=== PATIENT | female | born 1945 | race Caucasian/White ===

== ENCOUNTER 2022-03-10 22:23 | Inpatient (IN) | payer MEDICARE, SELFPAY ==
[2022-03-10 22:38] VITALS: BP 156/48; PULSE 79; RESP 18; TEMP 36.2; O2SAT 96; BMI 35.6
[2022-03-10 22:54] VITALS: O2SAT 96
--- NOTE | 2022-03-11 01:25 | NURSING ---
Pt c/o feeling short of breath, RT called for breathing tx. Fan put in room per pt request.
[2022-03-11 01:29] VITALS: PULSE 79; RESP 18; O2SAT 97
[2022-03-11 05:25] LABS: Hematocrit 31.8 % (37-47); Hemoglobin 10.3 g/dL (12.0-15.0); Mean Corp Hgb Conc 32.4 g/dL (32-36); Mean Corpuscular Hgb 29.6 pg (27.0-32.0); Mean Corpuscular Volume 91.4 fL (81-99); Mean Platelet Vol. 10.7 fl (6.2-12.0); Platelet Count 371 K/mm3 (150-450); RBC Distribution Width CV 14.6 % (11.6-14.6); RBC Distribution Width SD 48.7 fl (35.1-43.9); Red Blood Count 3.48 M/mm3 (4.2-5.4); White Blood Count 10.4 K/mm3 (4.4-11.0)
[2022-03-11 05:43] LABS: ALB/GLOB Ratio 0.8 RATIO (0.9-2.4); AST(SGOT) 28 U/L (15-37); Alanine Aminotransfer ALT/SGPT 36 U/L (13-56); Albumin, Serum 2.8 g/dL (3.2-5.0); Alkaline Phosphatase 56 U/L (45-117); Anion Gap 6 (5-15); BUN 18 mg/dL (7-18); BUN/Creat Ratio 18.4 RATIO (10-20); Calcium,Total 8.5 mg/dL (8.5-10.1); Chloride 107 mmol/L (98-107); Creatinine, Serum 0.98 mg/dL (0.55-1.02); EST Glomerular Filtration Rate 59 mL/min (>60); Est Glom Filt Rate - Afr Amer 71 mL/min (>60); Estimated Creatinine Clearance 39.23 ml/min; Globulin 3.4 g/dL (2.2-4.2); Glucose 122 mg/dL (74-106); Magnesium 2.4 mg/dL (1.6-2.6); Phosphorus 3.7 mg/dL (2.5-4.9); Protein, Total 6.2 g/dL (6.4-8.2); Sodium Level 139 mmol/L (136-145)
[2022-03-11 06:51] VITALS: PULSE 72; RESP 18; O2SAT 97
[2022-03-11] MEDS: Ipratropium/Albuterol Sulfate 3 ML AMPUL.NEB INHALATION ×3 (06:51→19:21)
[2022-03-11 08:08] VITALS: BP 149/48; PULSE 70; RESP 16; TEMP 36.2; O2SAT 96
[2022-03-11] MEDS: Senna/Docusate Sodium 1 Tablet PO (08:15)
[2022-03-11] MEDS: Aspirin 81 MG TAB.CHEW PO (08:15)
[2022-03-11] MEDS: APIXABAN 2.5 MG TABLET (WCH) PO ×2 (08:15→20:03)
[2022-03-11] MEDS: Clopidogrel Bisulfate 75 MG Tablet PO (08:15)
[2022-03-11] MEDS: Menthol/Lanolin/Calamine/Znox 113 GM Tube 1 APPLIC TOPICAL (08:15)
--- NOTE | 2022-03-11 11:06 | EX.PCM.HP.RE ---
[facility] Date of Admission: 03/10/22 Date of Service: 03/11/22 Chief Complaint: Debility secondary to LMCA stroke. [facility] Narrative MAIA ARTEAGA, is a 76-year-old F with a past medical history of COPD, heart failure with preserved ejection fraction, heart MM, obesity and tobacco dependence who presented to [facility] emergency department on 03/02/2022 complaining of shortness of breath. She was in new onset atrial fibrillation with acute decompensated congestive heart failure. EKG showed concern for STEMI and the troponin was elevated at 215. The BNP was greater than 10,000. She was started on a heparin drip and diuresed. She was initially started on amiodarone infusion but developed pauses and episodes of tacky bradycardia and this was discontinued. STEMI was ruled out in favor of acute coronary syndrome vs NSTEMI. Transthoracic echocardiogram showed a 45 to 50% ejection fraction with severe aortic stenosis and a severely dilated LA. On 03/03/2022 she underwent a left heart cath and it showed a 95% stenosis of the proximal LAD, and 80% stenosis of the proximal RCA and a 70% stenosis of the mid RCA. A stent was placed to the LAD. When she woke up from the heart cath she had significant right-sided weakness, aphasia and dysarthria. She had an emesis during the cath and was intubated. She was extubated at [facility] on 03/05/22. The heparin drip was stopped. Imaging was not completed until at least 7 hours after the onset of neurologic symptoms. The CT brain showed possible acute infarct in the left frontal parietal region. 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 On 03/04/2022 she was transferred to [facility] for possible intervention. She was outside the window for TNK. She was seen by Dr. Canseco and taken for possible endovascular intervention. Attempted thrombectomy was unsuccessful. Tici 0. She was treated with dual antiplatelet therapy but anticoagulation was held due to the increased risk for hemorrhagic transformation of CVA. She was also given 80 mg of atorvastatin. Repeat MRI at [facility] showed scattered left hemispheric mayers-white/subcortical subcentimeter infarcts and isolated right cerebellar punctate infarct due to thromboemboli. While at [facility] she was seen by PT/OT/ST and acute rehab was recommended at [facility]. She was transferred to [facility] acute rehab unit on 03/10/2022 for 3 hours of therapy daily to restore independence/function at or near her level prior to the stroke. She will follow-up with neurology at [facility] in 4 to 6 weeks and they will be mailing us an event monitor to place on the patient. A repeat echocardiogram at [facility] showed a mildly dilated left ventricle with moderate concentric left ventricular hypertrophy. The left ventricular systolic ejection fraction was estimated at 60+/- 5%. The right ventricle was mildly dilated and right ventricular systolic function was normal. The left atrium was severely dilated. There was severe aortic valve stenosis with an aortic valve area of 0.92. The peak gradient was 114 and the mean gradient was 65. Significant lab at [facility] included a hemoglobin A1c of 6.5 and LDL of 114. HDL was 54. All paperwork sent to us from [facility] was reviewed. Maia was seen by cardiology at [facility] and they recommended aspirin Plavix and atorvastatin with no anticoagulation initially due to increased risk for hemorrhagic transformation due to the size of the CVA. When she is able to start oral anticoagulation she will need to have 4 weeks of anticoagulation and then aspirin could be discontinued with continued Plavix and an oral anticoagulant. At some point will need to resolve the question of whether or not she will require intervention for the stenotic lesions in the RCA. Cardiology also recommended follow-up in valve clinic going forward for consideration for aortic valve replacement. All lab from this AM was personally reviewed. Hemoglobin is low at 10.3 with an MCV of 91.4 and an increased RDW standard deviation of 48.7. Platelets and white blood cell count are within normal limits. Sodium is normal and the potassium is 4.0. The BUN is 18 and the creatinine is 0.98. GFR is 59 which is consistent with stage IIIa chronic renal failure. Fasting glucose was 122 and phosphorus and magnesium are within normal limits. LFTs are normal. Afebrile VSS-systolic blood pressures are elevated at 149 and 156 since admission. Diastolics are within normal limits and there is a wide pulse pressure secondary to aortic stenosis. Maintaining appropriate oxygen saturation on RA Post void residuals have been 67 and 170. Discussed with nursing - no problems that need addressed Medication list reviewed. [facility] Medical History (Updated 03/11/22 @ 17:[address] Isis Lanier DO) Congestive heart failure (CHF) Coronary artery disease GERD (gastroesophageal reflux disease) Hypertension Severe aortic stenosis Sleep apnea Stroke/cerebrovascular accident Tobacco dependence Home Medications apixaban 2.5 mg tablet (Eliquis) 2.5 mg PO BID blood thinner 03/10/22 [History Last Taken Unknown] aspirin 81 mg chewable tablet 81 mg PO DAILY heart 03/10/22 [History Last Taken Unknown] atorvastatin 40 mg tablet (Lipitor) 40 mg PO QHS cholesterol 03/10/22 [History Last Taken Unknown] clopidogrel 75 mg tablet (Plavix) 75 mg PO DAILY blood thinner 03/10/22 [History Last Taken Unknown] ipratropium 0.5 mg-albuterol 3 mg (2.5 mg base)/3 mL nebulization soln 3 ml inhalation 4XD sob or wheezing 03/10/22 [History Last Taken Unknown] sennosides 8.6 mg-docusate sodium 50 mg tablet (Senna with Docusate Sodium) 1 tab-cap PO BID stool softener 03/10/22 [History Last Taken Unknown] amlodipine 5 mg tablet (Norvasc) 5 mg PO DAILY blood pressure 03/11/22 [History Last Taken Unknown] losartan 50 mg tablet 50 mg PO DAILY blood pressure 03/11/22 [History Last Taken Unknown] spironolactone 25 mg tablet (Aldactone) 25 mg PO DAILY blood pressure 03/11/22 [History Last Taken Unknown] Allergy/AdvReac Type Severity Reaction Status Date / Time No Known Allergies Allergy Verified 03/10/22 23:04 Family History (Updated 03/11/22 @ 16:[address] Isis Lanier DO) Father , of an LA CAD (coronary artery disease) Brother , from an LA CAD (coronary artery disease) Diabetes Sister Alcoholism Mother , of old age No problems noted. Surgical History (Updated 03/11/22 @ 16:[address] Isis Lanier DO) History of appendectomy History of cholecystectomy History of total abdominal hysterectomy and bilateral salpingo-oophorectomy Social History (Updated 03/11/22 @ 16:[address] Isis Lanier DO) household members: family and other details: She lives with her son Jermaine and her brother Marbin in [place]. housing: house number of children: 4 current occupational status: retired Smoking Status: Former smoker quit date: 02/24/22 pack-years: 40 Tobacco: How many years used: 40 counseling given: counseling >3 minutes alcohol intake: never substance use type: does not use ROS Constitutional Constitutional: Reports fatigue and weakness Eyes Eyes: Denies blurry vision, change in vision or double vision Cardiovascular Cardiovascular: Reports chest pain, orthopnea and paroxysmal nocturnal dyspnea Respiratory/Chest Respiratory/Chest: Reports cough and shortness of breath with exertion Gastrointestinal Gastrointestinal: Reports dyspepsia, nausea and other Details: c/o constant heartburn and nausea ; Denies abdominal pain, constipation or vomiting Genitourinary Genitourinary: Denies dysuria or urinary incontinence Musculoskeletal Musculoskeletal: Reports muscle weakness and other Details: muscle pain .....primarily in the RUE at this time.....was in both UE's.....may be central neuropathic pain from the stroke Integumentary Integumentary: Reports dry skin and other Details: multiple areas of ecchymosis......was on Heparin prior to the heart cath and stroke. ; Denies jaundice or rash Neurologic Neurologic: Reports abnormal gait, abnormal speech, confusion, focal weakness, lack of coordination and weakness; Denies numbness, seizures or tremor(s) Psychiatric Psychiatric: Denies anxiety, depression, homicidal ideation or suicidal ideation Endocrine Endocrinology: Denies change in body appearance Hematologic/Lymphatic Hematologic/Lymphatic: Reports easy bleeding Vital Signs Vital Signs Vital Signs: 03/10/22 22:38 03/10/22 22:54 03/11/22 01:29 Temperature 97.2 F L Temperature Source Temporal Pulse Rate 79 79 Respiratory Rate 18 18 Respiratory Effort Normal Non-Labored Respiratory Depth Normal Respiratory Pattern Normal Blood Pressure 156/48 H Blood Pressure Mean 84 Blood Pressure Source Monitor Blood Pressure Position Semi-Fowlers Blood Pressure Location Left Arm Pulse Ox 96 96 Oxygen Delivery Method Room Air Room Air 03/11/22 01:29 03/11/22 06:51 03/11/22 06:51 Temperature Temperature Source Pulse Rate 72 Respiratory Rate 18 Respiratory Effort Respiratory Depth Respiratory Pattern Normal Blood Pressure Blood Pressure Mean Blood Pressure Source Blood Pressure Position Blood Pressure Location Pulse Ox 97 97 Oxygen Delivery Method Room Air Room Air 03/11/22 08:08 Temperature 97.2 F L Temperature Source Oral Pulse Rate 70 Respiratory Rate 16 Respiratory Effort Respiratory Depth Respiratory Pattern Blood Pressure 149/48 H Blood Pressure Mean 81 Blood Pressure Source Monitor Blood Pressure Position Semi-Fowlers Blood Pressure Location Left Arm Pulse Ox 96 Oxygen Delivery Method Room Air Weight Weight: 194 lb 14.218 oz Body Mass Index (BMI) 35.6 Indicators for Scoring Admitted with or Primary Diagnosis of CVA/Stroke: Yes Hx of CVA/Stroke: Yes Modified Pitt Score MRS Score at time of Evaluation: 4-Moderate/severe disability NIHSS NIHSS 1a. Level of Consciousness: Alert; keenly responsive 1b. LOC Questions: Answers BOTH questions correctly. 1c. LOC Commands: Performs both tasks correctly. 2. Best Gaze: Normal 3. Visual: No visual loss 4. Facial Palsy: Normal symmetrical movements 5a. Left Arm: No drift; arm holds 90 (or 45) degrees for full 10 seconds 5b. Right Arm: Drift; arm drifts downward but doesn?t hit the bed 6a. Left Leg: No drift; leg holds 30-degree position for full 5 seconds 6b. Right Leg: Drift; leg falls by the end of 5-seconds, but does not hit bed 7. Limb Ataxia: Absent 8. Sensory: Normal; no sensory loss 9. Best Language: [id number]-fnvjwbes aphasia; (Trouble with word finding) 10. Dysarthria: Tirq-ma-mzkrmmuw dysarthria; 11. Extinction and Inattention: No abnormality Total: 4 Stroke Questions Stroke Team Activated: No Physical Exam Const alert, oriented x3 and no apparent distress Constitutional Narrative: sitting in the recliner at the bedside General Appearance: cooperative and well developed HEENT normocephalic Mouth: dry mucous membranes Eyes PERRL and EOMs intact bilaterally Eyes Narrative: No scleral icterus, no conjunctival injection, no purulent discharge, no mattering of the upper or lower eyelids. Neck supple Resp normal respiratory effort and normal air movement Resp Narrative: She has some crackles in the right base but the lungs are otherwise clear to auscultation. She is not tachypneic and has no conversational dyspnea. Cardio regular rate, regular rhythm, no rub and no gallops Cardio Narrative: She has a 3/6 holosystolic murmur at the second right intercostal space with radiation to the left ventricular outflow tract, lower left sternal border, apex. There is a softer systolic murmur in the mitral listening post. There is no ectopy. GI normal to inspection, nondistended, normoactive bowel sounds, soft to palpation and non-tender GI Narrative: No guarding with palpation. Extremity no calf tenderness Extremity Narrative: pedal pulses are not palpable but both feet are warm to touch. General Extremity: Negative for edema Skin Skin Narrative: Many areas of ecchymosis on upper extremities and in both groins General Skin Exam: dry skin Rashes: no rashes Neuro CN's II-XII intact bilaterally and no sensory deficits noted Neuro Narrative: weakness in RUE > RLE. No visual field cuts. Mild dysarthria. Trouble with word finding. Coordination / Balance: aikawb-hm-reuo test normal and dhor-qu-brhe test normal Psych cooperative, affect normal, denies homicidal ideation and denies suicidal ideation; Negative for thought process normal Appearance: appropriate Attitude: No agitated Results Lab / Micro Data Result Diagrams: 03/11/22 04:40 03/11/22 04:40 Labs: Laboratory Results - last 24 hr 03/11/22 04:40: WBC 10.4, RBC 3.48 L, Hgb 10.3 L, Hct 31.8 L, MCV 91.4, MCH 29.6, MCHC 32.4, RDW Std Deviation 48.7 H, RDW Coeff of Xochilt 14.6, Plt Count 371, MPV 10.7 03/11/22 04:40: Sodium 139, Potassium 4.0, Chloride 107, Carbon Dioxide 26.0, Anion Gap 6, BUN 18, Creatinine 0.98, Estim Creat Clear Calc 39.23, Est GFR (MDRD) Af Amer 71, Est GFR (MDRD) Non-Af 59 L, BUN/Creatinine Ratio 18.4, Glucose 122 H, Calcium 8.5, Phosphorus 3.7, Magnesium 2.4, Total Bilirubin 0.50, AST 28, ALT 36, Alkaline Phosphatase 56, Total Protein 6.2 L, Albumin 2.8 L, Globulin 3.4, Albumin/Globulin Ratio 0.8 L Assessment & Plan Assessment/Plan (1) Physical debility: (2) Stroke/cerebrovascular accident: PLAN: Left MCA distribution. Left cerebellar embolic stroke. (3) Dysphagia: (4) Dysarthria: (5) Right hemiparesis: (6) Acute coronary syndrome: (7) Coronary artery disease: (8) Acute on chronic diastolic (congestive) heart failure: (9) History of placement of stent in LAD coronary artery: (10) Severe aortic stenosis: (11) Paroxysmal A-fib: (12) LAE (left atrial enlargement): PLAN: severe (13) Hyperlipidemia: PLAN: LDL was 114 with HDL 54 and normal trig on no meds. Started on Atorvastatin 80 mg (14) Normochromic normocytic anemia: PLAN: This developed while in [facility] and is most likely secondary to acute blood loss (15) Absent pedal pulses: (16) Glucose intolerance (impaired glucose tolerance): (17) Hypertension: (18) Obesity (BMI 35.0-39.9 without comorbidity): (19) Tobacco dependence: (20) GERD (gastroesophageal reflux disease): PLAN: Plan 1. Documentation from [facility] says that she can start oral anticoagulation 5 days after the stroke. The stroke occurred on 12/01/2022 and this is day#7 post stroke. Will repeat a CTB without contrast in the AM and if there is no hemorrhagic transformation will start Eliquis. She will need to continue dual antiplatelet agents because of the recent left anterior distending coronary stent. We will start a PPI for ulcer prophylaxis and to tx GERD. 2. Smoking cessation counselling given .......she had smoked her last cigarette just a few days prior to the ACS and stroke. She denies cravings at this time. 3. Will need to have AV replacement and possibly a stent to the RCA going forward when she is stable from the CVA. Charges/Coding Visit Charges Inpatient E&M: 50577 Init Hosp L3
[2022-03-11 13:16] VITALS: PULSE 75; RESP 18
--- NOTE | 2022-03-11 13:45 | CASEMGMT ---
Social Work requesting palliative referral. Order entered. Referral emailed to [facility]. Karol Encinas MSW [employer]
--- NOTE | 2022-03-11 17:13 | REHABEVAL_ITS ---
Admission Information Primary Diagnosis:: Physical debility due to thromboembolic left MCA stroke with right hemiparesis, dysarthria, dysphagia, cognitive dysfunction and gait instability. Status Changes from Prescreening?: No changes Identified Actual Problem List:: Skin Intergrity, Pain, ALteration in Cmfrt, Cognitve Impr/Memory Loss, Alteration in Sleep (WAKES UP SOB DUE TO SEVERE AORTIC STENOSIS), Mobility Impaired, Know.Dfct/Disease Process, Know.Dfct of Medicaitons, BP, Hypertension and Alteration-Leisure Activ. Potential Problem List:: DVT, Bleeding, Infection, UTI, Aspiration, Falls, Skin Integrity and Depression Risk of Complications DVT: GIO Hose and - (Apixaban 2.5 mg twice daily......no loading doses given due to risk of hemorrhagic transformation of CVA) Bleeding: Monitor Lab Values, Nursing to Teach Precautions for anti-coagulation therapy., Wound, if applicable, to be assessed every shift. and Stroke patients assessed for lethargy or change in status. Infection: Clinical Staff to Monitor for S/S of infection: and S/S of infection include fever, redness, warmth, etc. Urinary Tract Infection: Monitor for frequency, burning, discomfort, or incontinence. and Nursing will obtain urine sample for urinalysis and C&S when ordered. Aspiration: Clinical staff will monitor for coughing, drooling, congestion., Speech will evaluate swallowing and dsyphasia. and Nursing will monitor patient swallowing during meals. Falls: Patient will be evaluated for Fall Precautions and Patient will be placed on Fall Precautions as indicated per protocol. Skin Breakdown: Nursing will assess skin daily using assessment tool. and Nursing will place on Skin Breakdown Precautions as indicated. Pain: Clinical staff will assess patient's pain level per protocol., Medications will be given, if needed, and the pain level reassessed. and Other methods: Massage, distraction, decrease stimulus, etc. used PRN. Plan of Care Patient requires physician specializing in physical medicine and rehab oversight to provide close medical supervision of rehab issues including: Pain Management, Sleep Problems, Bowel and Bladder, Medical and co-morbidity Management, DVT prophylaxis, Rehabilitation Leadership and Coordination of treatment team Patient needs Physical Therapy: For a minimum of 1 hour and At least 5 out of 7 days Patient needs Physical Therapy to improve:: Mobility, Strengthening, Transfers, Stretching, ROM, Endurance, Stairs, Gait and Balance Patient needs Occupational Therapy: For a minimum of 1 hour and At least 5 out of 7 days Patient needs Occupational Therapy to improve ADL's incl.: Eating, Grooming, Bathing, Dressing, Toileting, Toilet transfers, Community Reintegration, Higher functioning activities, Household tasks, Adaptive Equipment, Splinting and Other activities as determined Patient requires speech therapy: For a minimum of 1 hour and At least 5 out of 7 days Patient requires speech therapy for: Swallowing, Cognition, Language Skills and Compensatory Strategies Patient requires 24/ Rehabilitation Nursing for: Pain Issues, Identifying and preventing risk factors, Monitoring and reporting current medical conditions, Assisting with ambulation, transfer, and all ADL's, Teaching patients about disease process and medications, Family teaching, Providing safe environment, Bowel and Bladder Issues, Skin integrity and Medication Management Patient needs Alteration Workroom Supervisor/ Case Management for: Discharge Planning, Arranging Home Equipment or Services and Family Interventions Patient needs Dietary and Nutrition Services for: Adequate Nutrition, Nutritiona l Supplements and Nutritional Education Goals Patient will remain: free from falls and or injury at time of discharge. Patient will perform bed mobility at: MOD I level of assist. Patient will complete transfers from bed to chair at: MOD I level of assist. Patient will ambulate: 100 feet and with LRD Patient will complete upper body dressing at: MOD I level of assist. Patient will complete lower body dressing at: MOD I level of assist. Patient will complete toileting at: MOD I level of assist. Patient will perform bathing at: MOD I level of assist. Patient will complete grooming at: MOD I level of assist. Patient will complete home management skills at: MOD I level of assist. Patient will achieve: - (1 curb step) Patient will have pain level of: of 3 or less Patient's skin will: remain intact Patient will receive: adequate nutrition. Discharge Planning Pt Prognosis for Sig. Practical Improv. w/in Reasonable Time: Good Estimated Length of stay (days): 21 Anticipated D/C Destination: Home
[2022-03-11 19:21] VITALS: PULSE 73; RESP 20
--- NOTE | 2022-03-11 19:59 | NURSING ---
PT WITH INTERMITTENT EPIGASTRIC PAIN, BURNING IN NATURE AND RATES IT #8 ON SCALE. PAIN IS BETTER WHEN NOT MOVING. PT COMPLAINS OF SHORTNESS OF BREATH WHICH SHE STATES IS NORMAL FOR HER.
[2022-03-11] MEDS: Pantoprazole Sodium 40 MG Tablet PO (20:03)
[2022-03-11] MEDS: Atorvastatin Calcium 40 MG Tablet PO (20:03)
[2022-03-11] MEDS: Mag Hydrox/Al Hydrox/Simeth 30 ML UDC PO (20:15)
--- NOTE | 2022-03-11 20:16 | NURSING ---
EPIGASTRIC PAIN CONTINUES TO COME AND GO. PT SITTING IN BED AND TV IS ON.
[2022-03-11 20:48] VITALS: BP 173/51; PULSE 89; RESP 20; TEMP 36.9; O2SAT 99
--- NOTE | 2022-03-11 20:52 | NURSING ---
PT SITTING ON SIDE OF BED. REPORTS EPIGASTRIC PAIN STILL COMES AND GOES AND THAT SHE FEELS WORSE WITH LAYING FLAT. PT STATES NOT MUCH IMPROVEMENT FROM [facility]. LUNG SOUNDS ARE CLEAR AND PT IS ON 2LPM O2 PER N/C.
--- NOTE | 2022-03-11 20:57 | EKG12_ITS ---
Test Reason : CP Blood Pressure : / mmHG Vent. Rate : 068 BPM Atrial Rate : 068 BPM P-R Int : 146 ms QRS Dur : 102 ms QT Int : 422 ms P-R-T Axes : 076 003 193 degrees QTc Int : 448 ms Normal sinus rhythm ST & T wave abnormality, consider inferior ischemia ST & T wave abnormality, consider anterolateral ischemia Abnormal ECG When compared with ECG of 11-MAR-2022 21:07, MANUAL COMPARISON REQUIRED, DATA IS UNCONFIRMED Confirmed by LOURDES OTTO, EMRE ([id number]), general expeditor CELSO PHIPPS ([id number]) on 03/18/2022 8:26:28 AM Referred By: CHRISTIAN Confirmed By:EMRE FREED MD
--- NOTE | 2022-03-11 20:58 | NURSING ---
DR GONZALES INFORMED OF PT'S EPIGASTRIC PAIN THAT CONTINUES AFTER [place]. ORDERS GIVEN.
--- NOTE | 2022-03-11 21:30 | NURSING ---
DR HESS SENT EKG VIA BACKLINE PHONE.
[2022-03-11 22:58] LABS: Troponin-I HS 266 pg/mL (3.0-54.0)
--- NOTE | 2022-03-11 23:06 | NURSING ---
lab states troponin is 266. call placed to hospitalist via [facility] dredge pump operator. pt is currently resting with eyes closed.
--- NOTE | 2022-03-11 23:17 | NURSING ---
pt to be discharged from rehab unit and admitted to PCU. dr belle to see pt here. pt informed that she is going to be transferred.
--- NOTE | 2022-03-11 23:35 | NURSING ---
report called to Lizzeth in PCU. waiting for dr belle to see pt.
--- NOTE | 2022-03-11 23:43 | NURSING ---
DR HESS IN TO SEE AND TALK TO PT.
[2022-03-12 00:44] LABS: Troponin-I HS 276 pg/mL (3.0-54.0)
--- NOTE | 2022-03-12 04:38 | NURSING ---
PT'S SKILLS AUDITOR, YAQUELIN ARTEAGA (SON) WAS CONTACTED AT [phone] AND INFORMED THAT PT WAS TRANSFERRED TO ROOM 106 IN THE PCU IN [facility] DURING THE NIGHT SHE WAS HAVING SOME CHEST PAIN AND ELEVATED LAB LEVELS AND SO SHE COULD BE MONITORED CLOSER. PT'S SON VERBALIZES UNDERSTANDING.
--- NOTE | 2022-03-15 10:48 | DS.PCM_ITS ---
Providers Date of Admission: 03/10/22 Date of Discharge: 03/12/22 Primary Care Physician: No primary care physician Consultations 03/11/22 13:46 Consult: Hospice / Palliative Care Routine Consulting Provider: [facility] Reason for Consult: PALLIATIVE - CVA, CAD, COPD EMERGENT Consult: No MD Notified: Yes Date Notified: 03/11/22 Time Notified: 13:46 Method of Notification: Verbal Reason For Visit: CVA Diagnosis Discharge Diagnosis (1) Physical debility: Status: Acute Code(s): R53.81 - Other malaise Plan: Secondary to post left heart cath stroke. (2) Stroke/cerebrovascular accident: Status: Acute Code(s): I63.9 - Cerebral infarction, unspecified Plan: Left MCA distribution. Left cerebellar embolic stroke. (3) Dysphagia: Status: Acute Code(s): R13.10 - Dysphagia, unspecified (4) Dysarthria: Status: Acute Code(s): R47.1 - Dysarthria and anarthria (5) Right hemiparesis: Status: Acute Code(s): G81.91 - Hemiplegia, unspecified affecting right dominant side (6) Coronary artery disease: Status: Acute Code(s): I25.10 - Atherosclerotic heart disease of [place] coronary artery without angina pectoris Plan: Recently had a 90% stenosis of the proximal LAD dilated and stented. Still with significant stenosis in the RCA. (7) Acute on chronic diastolic (congestive) heart failure: Status: Chronic Code(s): I50.33 - Acute on chronic diastolic (congestive) heart failure (8) History of placement of stent in LAD coronary artery: Status: Acute Code(s): Z95.5 - Presence of coronary angioplasty implant and graft (9) Severe aortic stenosis: Status: Acute Code(s): I35.0 - Nonrheumatic aortic (valve) stenosis (10) Paroxysmal A-fib: Status: Acute Code(s): I48.0 - Paroxysmal atrial fibrillation (11) LAE (left atrial enlargement): Status: Acute Code(s): I51.7 - Cardiomegaly Plan: severe (12) Hyperlipidemia: Status: Acute Code(s): E78.5 - Hyperlipidemia, unspecified Plan: LDL was 114 with HDL 54 and normal trig on no meds. Started on Atorvastatin 80 mg (13) Normochromic normocytic anemia: Status: Acute Code(s): D64.9 - Anemia, unspecified Plan: This developed while in [facility] and is most likely secondary to acute blood loss (14) Absent pedal pulses: Status: Acute Code(s): R09.89 - Other specified symptoms and signs involving the circulatory and respi ratory systems (15) Glucose intolerance (impaired glucose tolerance): Status: Acute Code(s): R73.02 - Impaired glucose tolerance (oral) (16) Hypertension: Status: Chronic Code(s): I10 - Essential (primary) hypertension (17) Obesity (BMI 35.0-39.9 without comorbidity): Status: Acute Code(s): E66.9 - Obesity, unspecified (18) Tobacco dependence: Status: Acute Code(s): F17.200 - Nicotine dependence, unspecified, uncomplicated (19) GERD (gastroesophageal reflux disease): Status: Acute Code(s): K21.9 - Gastro-esophageal reflux disease without esophagitis (20) Chest pain: Status: Acute Code(s): R07.9 - Chest pain, unspecified Plan: CP associated with nausea (no emesis). (21) Elevated troponin I level: Status: Acute Code(s): R77.8 - Other specified abnormalities of plasma proteins (22) NSTEMI, initial episode of care: Status: Acute Code(s): I21.4 - Non-ST elevation (NSTEMI) myocardial infarction Plan 1. Documentation from [facility] says that she can start oral anticoagulation 5 days after the stroke. The stroke occurred on 12/01/2022 and this is day#7 post stroke. Will repeat a CTB without contrast in the AM and if there is no hemorrhagic transformation will start Eliquis. She will need to continue dual antiplatelet agents because of the recent left anterior distending coronary stent. We will start a PPI for ulcer prophylaxis and to tx GERD. 2. Smoking cessation counselling given .......she had smoked her last cigarette just a few days prior to the ACS and stroke. She denies cravings at this time. 3. Will need to have AV replacement and possibly a stent to the RCA going forward when she is stable from the CVA. Medications at Discharge Home Medications apixaban 2.5 mg tablet (Eliquis) 2.5 mg PO BID blood thinner 03/10/22 aspirin 81 mg chewable tablet 81 mg PO DAILY heart 03/10/22 atorvastatin 40 mg tablet (Lipitor) 40 mg PO QHS cholesterol 03/10/22 clopidogrel 75 mg tablet (Plavix) 75 mg PO DAILY blood thinner 03/10/22 ipratropium 0.5 mg-albuterol 3 mg (2.5 mg base)/3 mL nebulization soln 3 ml inhalation 4XD sob or wheezing 03/10/22 sennosides 8.6 mg-docusate sodium 50 mg tablet (Senna with Docusate Sodium) 1 tab-cap PO BID stool softener 03/10/22 amlodipine 5 mg tablet (Norvasc) 5 mg PO DAILY blood pressure 03/11/22 losartan 50 mg tablet 50 mg PO DAILY blood pressure 03/11/22 spironolactone 25 mg tablet (Aldactone) 25 mg PO DAILY blood pressure 03/11/22 Hospital Course Operations None Procedures None Summary of Care Provided Minutes Spent on Discharge: 30 Hospital Course: Maia Iqbal is a 76-year-old female with a recent history of a NSTEMI that lead to a left heart cath followed by dilation and stenting of the proximal LAD. She also has high grade stenosis of the RCA and this was not addressed at [facility]. The [facility] resulted in a post procedure CVA. She was transferred to the acute inpt rehab unit at [facility] on 03/10/22 for 3 hours of therapy daily to restore function at or near her level prior to the stroke. At the time I saw Maia initially she was c/o CP associated with nausea and told me that she has heartburn frequently. She denied SOB, radiation of the pain, palpitations and dizziness. The pain was intermittent. Protonix and Mylanta were ordered. The pain recurred later that night and was unrelieved with Mylanta and Protonix. An EKG was obtained and a troponin was drawn. Dr. Mckeon documented there was a change in the EKG but, he thought it was due to evolution of the NSTEMI she had prior to the [facility]. I am not able to view the EKG because it is not coming up on the EMR. Troponin was elevated at 266. she was seen by the night hospitalist and transferred to PCU for further evaluation of the CP. Physical Exam Narrative I was not present at the time the pt was transferred to PCU. Please see The H&P done by Dr. Ocampo for details regarding her PE at the time of transfer to PCU. Weight / BMI Weight Weight: 194 lb 14.218 oz Body Mass Index (BMI) 35.6 ABG / Lab / Microbiology Data Result Diagrams: 03/11/22 04:40 03/11/22 04:40 Meaningful Use Info Meaningful Use Diagnoses (Choose all that apply): AMI and Ischemic CVA AMI/Post PCI/Angioplasty Aspirin given w/in 24hrs of arrival?: Yes ASA at discharge?: Yes Antiplatelet Therapy at Discharge:: Yes Statins at discharge?: Yes Raulito/ARB at discharge?: Yes Beta Christiano at discharge?: Yes Done w/ Acute RI measure.: Yes Documented LVEF (%): 55 CVA Therapy Assessed for PT,OT and/or ST?: Yes Ischemic Stroke Antithrombotic order at d/c?: Yes Dx of Atrial fib/flutter?: Yes Anticoagulant at discharge?: Yes Statins at discharge?: Yes Primary Dx Acute Ischemic CVA?: Yes IV tPA ordered during stay?: No Reason IV t-PA not ordered: Treatment not Indicated Discharge Plan Admission Admit Date/Time: 03/10/22 22:23 Attending Provider: Isis Lanier Consulting Providers: Antoinette De La Fuente ; Ham Pyle ; Claire Johnson ; Cherelle Santiago ; Beverly Varma PUBLICITY AGENT Discharge Orders/Prescriptions Prescriptions: No Action atorvastatin [Lipitor] 40 mg Tablet 40 mg PO QHS ipratropium-albuterol 0.5 mg-3 mg(2.5 mg base)/3 mL Solution For Nebulization 3 ml inhalation 4XD sennosides-docusate sodium [Senna with Docusate Sodium] 8.6-50 mg Tablet 1 tab-cap PO BID clopidogrel [Plavix] 75 mg Tablet 75 mg PO DAILY aspirin 81 mg Tablet,Chewable 81 mg PO DAILY Eliquis 2.5 mg Tablet 2.5 mg PO BID losartan 50 mg Tablet 50 mg PO DAILY amlodipine [Norvasc] 5 mg Tablet 5 mg PO DAILY spironolactone [Aldactone] 25 mg Tablet 25 mg PO DAILY Disposition Disposition (needs filled in before D/C Order can be placed): Acute Care Hospital Charges/Coding Visit Charges Inpatient E&M: 48638 Disch Hosp
--- NOTE | 2022-03-15 12:45 | CASEMGMT ---
Social Work IDT met with patient for Team meeting. Left message for son to participate - offered for son to call this worker for update after meeting. Discussed patient's progress in PT/OT/ST/SN. Educated to Medicare approval of 17 days with EDC 03/27. Pt's goal is to return home alone, however, SW to broach conversation with son on planning for alternate DC plan. Son lives out of state and cannot assist. Will ReTeam weekly. SW to continue to follow. MARC Bernard INSURANCE UNDERWRITER
[2022-03-15] MEDS: Ipratropium/Albuterol Sulfate 3 ML AMPUL.NEB INHALATION ×2 (15:36→19:00)
[2022-03-15 15:37] VITALS: PULSE 72; RESP 18
--- NOTE | 2022-03-15 16:14 | PCM.PROGNOTE ---
Subjective Subjective Maia was seen on team rounds today. We tried to reach her son Tiago by phone but there was no answer. Afebrile VSS - BP's had been high when she was first admitted to rehab but, today's BP is 108/69. HR is WNL. Maintaining appropriate oxygen saturation on RA Oral intake is good Discussed with nursing - Nursing requested I look at her buttocks for a rash. Reviewed the PT/OT/ST notes - she is tolerating exercise better than she was prior to transfer to PCU. Medication list reviewed. Maia was discharged from rehab to PCU on 03/12/22 for CP with EKG changes and an elevated troponin. She was seen by Dr. Mckeon and he thought the EKG changes were due to the evolution of a NSTEMI she had prior to the initial admit to rehab. She was diagnosed with a new NSTEMI. He recommended aggressive risk factor management and an AV replacement......she is going to follow up at [facility] for this. She remains on aspirin, Plavix, apixaban, a calcium channel stewart and losartan. Maia tells me that she gets intermittent substernal CP associated with SOB and nausea. She had this with ambulation when she first ambulated with PT at admission to rehab. It comes and goes and she was getting this prior to the initial presentation to the ED for SOB and acute respiratory failure. She admits to fatiguing easily but today she was able to ambulate 160 ft (up from 60 ft on 03/11/22 and she did not have CP today.). She did have SOB. She slept well last night and she is eating well. She denies SOB at rest. Objective Data Objective Data Vital Signs: Vital Signs Temp Pulse Resp BP Pulse Ox O2 Del Method O2 Flow Rate 98.4 F 89 20 H 173/51 H 99 Nasal Cannula 2 03/11/22 20:48 03/11/22 20:48 03/11/22 20:48 03/11/22 20:48 03/11/22 20:48 03/11/22 20:48 03/11/22 20:48 Oxygen Flow Rate (L/min) 2 Oxygen Delivery Method Nasal Cannula Weight: 194 lb 14.218 oz Body Mass Index (BMI) 35.6 Lab / Micro Data Result Diagrams: 03/11/22 04:40 03/11/22 04:40 Physical Exam Const alert, oriented x3 and no apparent distress Constitutional Narrative: Sitting in the recliner at the bedside watching TV. General Appearance: cooperative Resp normal respiratory effort, normal air movement and clear to auscultation bilaterally Resp Narrative: No conversational dyspnea and she is able to speak in complete sentences. Effort and Inspection: Negative for tachypneic Cardio regular rate, regular rhythm, no rub and no gallops Cardio Narrative: no change in the 3/6 holosystolic MM at the second RICS with radiation to the LVOT, LLSB, carotids BL and the apex. She also has a soft systolic MM in the mitral listening post. No ectopy GI normal to inspection, nondistended, normoactive bowel sounds, soft to palpation and non-tender Extremity Extremity Narrative: Trace pretibial edema of the RLE. The LLE has no edema. Skin Wound Narrative: There is a curvilinear rash on the R buttock that has no openings in the skin and appears to be a scratch. There are no vesicles and she denies any pain in the buttocks. There are also a few isolated pinpoint red spots with small scabs on the L buttock around the gluteal cleft. No DC, no redness around any of the lesions and no pain with palpation of the area. She also has petechiae and confluent areas of ecchymosis on the extremities in varying stages of resolution. Neuro CN's II-XII intact bilaterally Neuro Narrative: weakness of the r side, arm> leg. No sensory deficits. No ataxia. No visual loss. Speech: speech normal Psych cooperative Appearance: appropriate Activity / Motor Behavior: Negative for restless Thought Content: No suicidality, No homicidality, No delusion(s) and No hallucination(s) Assessment & Plan Assessment/Plan (1) Physical debility: (2) Stroke/cerebrovascular accident: (3) Coronary artery disease: (4) History of placement of stent in LAD coronary artery: (5) Severe aortic stenosis: (6) Paroxysmal A-fib: (7) LAE (left atrial enlargement): (8) Right hemiparesis: (9) Dysarthria: (10) Dysphagia: (11) NSTEMI, initial episode of care: (12) Elevated troponin I level: (13) Chest pain: (14) Hypertension: (15) Glucose intolerance (impaired glucose tolerance): (16) Hyperlipidemia: (17) Absent pedal pulses: PLAN: Plan 1. Continue therapy 2. She thinks she is having heartburn but, I think the CP associated with SOB and nausea are actually angina. 3. Follow up with [facility] to discuss replacing the aortic valve. Charges/Coding Visit Charges Inpatient E&M: 45669 Subs Hosp L2
--- NOTE | 2022-03-15 18:00 | CASEMGMT ---
Social Work Consult for possible advanced directives for this patient. Presented to patient's room. Patient sitting up in chair, eating dinner. Introduced to self, role, and reason for visit. Indicated patient may have previously expressed interest in completing and having information. Patient expressed that a son assists with all of the paperwork. Patient continued to eat dinner and no interest in engaging in conversation about advanced directives. Social work to follow and will attempt as able to discuss topic with patient again at at later time. -LIZ Ortega, CORRECTIONAL GUARD
[2022-03-15 19:00] VITALS: PULSE 72; RESP 18
[2022-03-15 20:25] VITALS: BP 150/51; PULSE 81; RESP 16; TEMP 36.9; O2SAT 95
[2022-03-15] MEDS: APIXABAN 2.5 MG TABLET (WCH) PO (20:31)
[2022-03-15] MEDS: Atorvastatin Calcium 40 MG Tablet PO (20:31)
[2022-03-15] MEDS: Senna/Docusate Sodium 1 Tablet PO (20:31)
[2022-03-16 07:43] VITALS: BP 152/45; PULSE 71; RESP 18; TEMP 37; O2SAT 98
[2022-03-16 07:50] VITALS: PULSE 70; RESP 16; O2SAT 99
[2022-03-16] MEDS: Ipratropium/Albuterol Sulfate 3 ML AMPUL.NEB INHALATION ×2 (07:50→15:40)
[2022-03-16] MEDS: Senna/Docusate Sodium 1 Tablet PO (07:57)
[2022-03-16] MEDS: Aspirin 81 MG TAB.CHEW PO (07:57)
[2022-03-16] MEDS: APIXABAN 2.5 MG TABLET (WCH) PO (07:57)
[2022-03-16] MEDS: amLODIPine 5 MG Tablet PO (07:57)
[2022-03-16] MEDS: Spironolactone 25 MG Tablet PO (07:57)
[2022-03-16] MEDS: Losartan Potassium 50 MG Tablet PO (07:57)
[2022-03-16] MEDS: Pantoprazole Sodium 20 MG Tablet PO (07:57)
[2022-03-16] MEDS: Clopidogrel Bisulfate 75 MG Tablet PO (07:58)
--- NOTE | 2022-03-16 09:05 | CASEMGMT ---
Social Work Palliative liaison scheduled to visit pt this date at 1500. SW advised for liaison to call son to be involved as well. Karol Encinas, STAKES PLAYER LENS SHAPER GRINDER
--- NOTE | 2022-03-16 09:54 | EKG12_ITS ---
Test Reason : CP Blood Pressure : / mmHG Vent. Rate : 073 BPM Atrial Rate : 073 BPM P-R Int : 144 ms QRS Dur : 096 ms QT Int : 400 ms P-R-T Axes : 065 -22 155 degrees QTc Int : 440 ms Normal sinus rhythm Consider voltage criteria for LVH ST/T wave abnormaltiy: Consider LVH repolarization vs myocardial ischemia Abnormal ECG Confirmed by HAI OTTO, RICHELLE ([id number]), health editor CELSO PHIPPS ([id number]) on 03/17/2022 10:17:22 AM Referred By: CHRISTIAN Confirmed By:RICHELLE VALLES MD
[2022-03-16 09:55] VITALS: BP 133/57; PULSE 72; O2SAT 100
[2022-03-16] MEDS: Morphine 2 MG/ML Syringe IV ×2 (10:02→10:39)
--- NOTE | 2022-03-16 10:39 | PN_ITS ---
Subjective Subjective Afebrile VSS-current vital signs are heart rate 72, blood pressure 133/57, 100% on room air. Maintaining appropriate oxygen saturation on RA Oral intake is for fluids. She took only 760 yesterday. She is eating 75 to 100% of her meals. Discussed with nursing - Pt developed substernal CP again today with radiation to the neck and jaw associated with increased RR and nausea. EKG shows deep T wave inversions in leads I, II, V3-V6. There is also [address] elevation in III. This EKG is similar to the EKG done on 03/12/22 for CP but, the [address] elevation in III is new and the T wave inversion in AVF is new. She was not exerting herself when the CP started......she was sitting and working with ST. Reviewed the PT/OT/ST notes Medication list reviewed. See above for the description of CP this AM. I is almost gone after MS IV given. She is no longer tachypneic. She is not diaphoretic. Nausea has resolved. CP is nearly gone. Denies palpitations and lightheadedness. She is having some pain in the RLE when she straightens her leg in the bed and it is better with flexing the knee. Denies cephalgia. No new neurologic complaints. Objective Data Objective Data Vital Signs: Vital Signs Temp Pulse Resp BP Pulse Ox O2 Del Method O2 Flow Rate 98.6 F 72 16 133/57 H 100 Room Air 2 03/16/22 07:43 03/16/22 09:55 03/16/22 07:50 03/16/22 09:55 03/16/22 09:55 03/16/22 09:55 03/11/22 20:48 FiO2 95 03/15/22 20:45 Oxygen Flow Rate (L/min) 2 Oxygen Delivery Method Room Air Weight: 185 lb 3.013 oz Body Mass Index (BMI) 35.6 Intake & Output: Intake and Output for Last 24 Hours 03/14/22 03/15/22 03/16/22 23:59 23:59 23:59 Intake Total 760 / 760 560 / 560 Output Total 500 / 500 100 / 100 Balance 260 / 260 460 / 460 Lab / Micro Data Result Diagrams: 03/11/22 04:40 03/11/22 04:40 Physical Exam Const alert and oriented x3 Constitutional Narrative: She has a grimace on her face and appears to be in pain. She puts her hand over the sternum when I ask where the pain is and also has some pain in the upper epigastric region. She also points to her jaw and neck. No radiation to the arms or back. General Appearance: cooperative Resp normal air movement and clear to auscultation bilaterally Effort and Inspection: tachypneic Cardio regular rate, regular rhythm, no rub and no gallops Cardio Narrative: No change in the 3/6 holosystolic MM at the 2nd RICS with radiation to the left ventricular outflow tract, lower left sternal border and apex. She also has a s ofter systolic murmur heard at the mitral listening post. There is no ectopy. GI GI Narrative: No guarding with palpation. BS's are normal. Some pain in the epigastric area but, not reproducible with palpation. Soft. Extremity no calf tenderness Extremity Narrative: She has sciatic pain in the posterior LLE with extension of the L leg General Extremity: Negative for edema Skin Skin Narrative: Not diaphoretic. Assessment & Plan Assessment/Plan (1) Stroke/cerebrovascular accident: (2) Severe aortic stenosis: (3) Coronary artery disease: (4) Paroxysmal A-fib: (5) History of placement of stent in LAD coronary artery: (6) Unstable angina: PLAN: Plan 1. Suspend any further therapy for now. She had a NSTEMI on 03/12/22 and continues to have CP with tachypnea, radiation to the neck and the jaw and nausea. she has 2 stenotic lesions in the RCA, and 80% lesion in the proximal RCA and a 70% stenosis in the mid RCA. The RCA was not stented at the time of her recent left heart cath. She did have a stent placed in the LAD for a 95% p roximal stenosis. She also has severe . The stent was done at [facility] and when she had post procedure embolic strokes she was transferred to [facility]. They addressed the stroke and she was instructed to follow up as an OP for cardiac evaluation when she was able to obtain insurance. They have her listed as self pay BUT, she is medicare part A. I left the information with the marketing communications coordinator at [facility]. She is going have the hospitalist call me. They are already boarding 19 patients in the ED waiting for admission. currently the pain has resolved and I am waiting for the results of the first troponin. Will get a follow up EKG now that the pain has resolved. I do not feel that she is safe staying in acute rehab with unstable angina. I think she needs cardiology to see her and make a determination if she needs the RCA stented or if she will continue to have angina until she has the AV replaced. I spoke to Dr. Hutchinson from [facility] and he saw Maia in the hospital when she was admitted to [facility]. Without looking at the EKG's and seeing her he can give no recommendations. Apparently Maia has an appt at the [facility] clinic at tomorrow. We would have to DC her from acute rehab for her to attend that appt. At this point she is not stable from the stroke stand point to get in a car for transport to the OP clinic. Dr. Hutchinson told me that the admission would be to hospitalist service with a consultation to Cardiology. I am waiting to talk with the hospitalist. The transfer nurse recommended we might want to transfer to the ED and if they felt she needed to be transferred they would make the transfer? The first troponin is 71. It was 247 on 03/12/22. I called her son Tiago and left my office number on his voicemail. I then called her brother Marbin who is going to try and reach Tiago so that I can discuss transfer to a higher level of care. Charges/Coding Visit Charges Inpatient E&M: 33554 Subs Hosp L3
--- NOTE | 2022-03-16 11:00 | EKG12_ITS ---
Test Reason : REPEAT Blood Pressure : / mmHG Vent. Rate : 070 BPM Atrial Rate : 070 BPM P-R Int : 146 ms QRS Dur : 092 ms QT Int : 426 ms P-R-T Axes : 068 -16 202 degrees QTc Int : 460 ms Normal sinus rhythm ST & T wave abnormality, consider inferior ischemia ST & T wave abnormality, consider anterolateral ischemia Abnormal ECG When compared with ECG of 16-MAR-2022 10:16, MANUAL COMPARISON REQUIRED, DATA IS UNCONFIRMED Confirmed by LOURDES OTTO, EMRE ([id number]), editorial director CELSO PHIPPS ([id number]) on 03/18/2022 8:26:16 AM Referred By: CHRISTIAN Confirmed By:EMRE FREED MD
[2022-03-16 11:19] LABS: Hematocrit 30.2 % (37-47); Hemoglobin 9.5 g/dL (12.0-15.0)
[2022-03-16 11:36] LABS: Anion Gap 8 (5-15); BUN 24 mg/dL (7-18); BUN/Creat Ratio 21.6 RATIO (10-20); Calcium,Total 8.9 mg/dL (8.5-10.1); Chloride 107 mmol/L (98-107); Creatinine, Serum 1.11 mg/dL (0.55-1.02); EST Glomerular Filtration Rate 51 mL/min (>60); Est Glom Filt Rate - Afr Amer 62 mL/min (>60); Estimated Creatinine Clearance 34.63 ml/min; Glucose 114 mg/dL (74-106); Potassium 4.4 mmol/L (3.5-5.1); Sodium Level 138 mmol/L (136-145); Troponin-I HS 71 pg/mL (3.0-54.0)
--- NOTE | 2022-03-16 15:17 | DS.PCM_ITS ---
Providers Date of Admission: 03/10/22 Date of Discharge: 03/16/22 Primary Care Physician: No PCP Consultations 03/11/22 13:46 Consult: Hospice / Palliative Care Routine Consulting Provider: [facility] Reason for Consult: PALLIATIVE - CVA, CAD, COPD EMERGENT Consult: No MD Notified: Yes Date Notified: 03/11/22 Time Notified: 13:46 Method of Notification: Verbal Reason For Visit: CVA Diagnosis Discharge Diagnosis (1) Physical debility: Status: Acute Code(s): R53.81 - Other malaise Plan: Due to embolic CVA following heart catheterization and stenting of the proximal LAD lesion. CTA showed acute complete occlusion of the left cervical and proximal internal carotid artery. The imaging was not obtained for 6-7 hours after the stroke sx were noticed and therefore she was outside the window for TNK and she was on a heparin drip. She was transferred to [facility] for possible endovascular intervention. Thrombectomy was attempted by Dr. Rios and was unsuccessful. MRI at [facility] showed scattered left hemispheric mayers?white/subcortical subcentimeter infarcts and isolated right cerebellar punctate infarct due to thromboemboli. (2) Stroke/cerebrovascular accident: Status: Acute Code(s): I63.9 - Cerebral infarction, unspecified (3) Unstable angina: Status: Acute Code(s): I20.0 - Unstable angina Plan: Had a second NSTEMI at [facility] on 03/12/22 and was seen by cardiology. Cardiology felt the EKG changes were due to evolutionary changes from previous proc edures/NSTEMI. They recommended continued medical care. She was transferred back to the inpt rehab unit and on 03/16/22 again developed substernal CP with radiation into the neck and the jaw associated with nausea and tachypnea. EKG now showed [address] elevation in lead III with an inverted T wave in AVF. After the pain resolved we got another EKG (using the same lead patches used for the first EKG and the ST elevation had resolved and there were NS T wave changes in AVF. (4) Severe aortic stenosis: Status: Acute Code(s): I35.0 - Nonrheumatic aortic (valve) stenosis Plan: Echocardiogram at [facility] on 03/13/2022 showed a 55% ejection fraction with moderate concentric left ventricular hypertrophy. There were no regional wall motion abnormalities. The peak aortic valve gradient was 88 mmHg with a mean aortic valve gradient of 47 mmHg. Valve area measured 0.8 cm? and there was +1 aortic valve insufficiency. (5) Coronary artery disease: Status: Acute Code(s): I25.10 - Atherosclerotic heart disease of yocha dehe coronary artery without angina pectoris Plan: 95% proximal LAD was stented at [facility] in [place]. There is a 80% proximal stenosis in the RCA and a 70% mid RCA stenosis. (6) Paroxysmal A-fib: Status: Acute Code(s): I48.0 - Paroxysmal atrial fibrillation (7) History of placement of stent in LAD coronary artery: Status: Acute Code(s): Z95.5 - Presence of coronary angioplasty implant and graft (8) NSTEMI, initial episode of care: Status: Acute Code(s): I21.4 - Non-ST elevation (NSTEMI) myocardial infarction Plan: She has to date had at least 2 NSTEMIS's....the first on 03/02/22 and the second on 03/12/22. The initial troponin on 03/16/22 is 71 and I am awaiting the results of the second troponin. (9) Acute on chronic diastolic (congestive) heart failure: Status: Chronic Code(s): I50.33 - Acute on chronic diastolic (congestive) heart failure Plan: Resolved......this occurred with the first NSTEMI and at the time she was in AF with RVR. When she was given Amiodarone she got very bradycardic and had pauses. (10) Normochromic normocytic anemia: Status: Acute Code(s): D64.9 - Anemia, unspecified (11) Hyperlipidemia: Status: Acute Code(s): E78.5 - Hyperlipidemia, unspecified Plan: LDL was 114 at [facility] and she had been on Atorvastatin for only a few days. (12) Glucose intolerance (impaired glucose tolerance): Status: Acute Code(s): R73.02 - Impaired glucose tolerance (oral) Plan: HGBA1C at [facility] was 6.5 on no medication but, this was after the stroke and the number may be a little elevated due to the neurological event. She denies a hx of DM II. (13) Dysphagia: Status: Acute Code(s): R13.10 - Dysphagia, unspecified Plan: she is currently on a soft bite sized diet with thin liquids. Cardiac/carb con trol. (14) Dysarthria: Status: Resolved Code(s): R47.1 - Dysarthria and anarthria (15) Obesity (BMI 35.0-39.9 without comorbidity): Status: Acute Code(s): E66.9 - Obesity, unspecified (16) Tobacco dependence: Status: Acute Code(s): F17.200 - Nicotine dependence, unspecified, uncomplicated Plan: 40 pack year hx and was still smoking at the time of first NSTEMI. (17) LAE (left atrial enlargement): Status: Acute Code(s): I51.7 - Cardiomegaly Plan: mild (18) Hypertension: Status: Chronic Code(s): I10 - Essential (primary) hypertension Plan: currently controlled Plan Transfer to [facility] - accepting is Dr. Calos Jaramillo. Medications at Discharge Home Medications apixaban 2.5 mg tablet (Eliquis) 2.5 mg PO BID blood thinner 03/10/22 aspirin 81 mg chewable tablet 81 mg PO DAILY heart 03/10/22 atorvastatin 40 mg tablet (Lipitor) 40 mg PO QHS cholesterol 03/10/22 clopidogrel 75 mg tablet (Plavix) 75 mg PO DAILY blood thinner 03/10/22 ipratropium 0.5 mg-albuterol 3 mg (2.5 mg base)/3 mL nebulization soln 3 ml inhalation 4XD sob or wheezing 03/10/22 sennosides 8.6 mg-docusate sodium 50 mg tablet (Senna with Docusate Sodium) 1 tab-cap PO BID stool softener 03/10/22 amlodipine 5 mg tablet (Norvasc) 5 mg PO DAILY blood pressure 03/11/22 losartan 50 mg tablet 50 mg PO DAILY blood pressure 03/11/22 spironolactone 25 mg tablet (Aldactone) 25 mg PO DAILY blood pressure 03/11/22 Hospital Course Operations None Procedures 2-D Echocardiogram (Interpretation Summary Normal LV size. Moderate concentric left ventricular hypertrophy. Left ventricular systolic function is normal. The estimated ejection fraction is 55 %. The left atrium is mildly enlarged. Mean aortic valve gradient 47 mmHg. Mild (1+) aortic valve insufficiency. Peak aortic va) and EKG Summary of Care Provided Minutes Spent on Discharge: 50 Hospital Course: MAIA ARTEAGA, is a 76-year-old F with a past medical history of COPD, heart failure with preserved ejection fraction, heart MM, obesity and tobacco dependence who presented to [facility] (in [place]) emergency department on 03/02/2022 complaining of shortness of breath.? She was in new onset atrial fibrillation with RVR with acute decompensated congestive heart failure.? EKG showed concern for STEMI and the troponin was elevated at 215.? The BNP was greater than 10,000.? She was started on a heparin drip and diuresed.? She was initially started on an amiodarone infusion but developed pauses and episodes of tachy/shasha and amiodarone was discontinued.? STEMI was ruled out in favor of NSTEMI.? Transthoracic echocardiogram showed a 45 to 50% ejection fraction with severe aortic stenosis and a severely dilated LA.? On 03/03/2022 she underwent a left heart cath and it showed a 95% stenosis of the proximal LAD, an 80% stenosis of the proximal RCA and a 70% stenosis of the mid RCA.? A stent was placed to the LAD.? When she woke up from the heart cath she had significant right-sided weakness, aphasia and dysarthria. She had an emesis during the cath and was intubated. The heparin drip was stopped.? Imaging was not completed u [facility] at least 6-7 hours after the onset of neurologic symptoms.? The CT brain showed possible acute infarct in the left frontal parietal region.? A CTA revealed complete occlusion of the left cervical and proximal internal carotid artery.? On 03/04/2022 she was transferred to [facility] for possible intervention/thrombectomy.? She was outside the window for TNK.? She was seen by Dr. Canseco and taken for possible endovascular intervention.? Attempted thrombectomy was unsuccessful.? Tici 0.? She was treated with dual antiplatelet therapy and was placed on Atorvastatin 80 mg. Anticoagulation was held initially due to the increased risk for hemorrhagic transformation of CVA.?Eliquis was started prior to her transfer to acute rehab on 03/10/22. Repeat MRI at [facility] showed scattered left hemispheric mayers-white/subcortical subcentimeter infarcts and an isolated right cerebellar punctate infarct due to thromboemboli.?she was seen by cardiology at [facility] and follow up in the OP TAVR clinic was recommended. While at [facility] she was seen by PT/OT/ST and acute rehab was recommended at [place].? She was transferred to [facility] acute rehab unit on 03/10/2022 for 3 hours of therapy daily to restore independence/function at or near her level prior to the stroke.? Maia was to follow-up with neurology at [facility] in 4 to 6 weeks and they were to mail an event monitor to the rehab unit so we could place it on the patient. A repeat echocardiogram at [facility] showed a mildly dilated left ventricle with moderate concentric left ventricular hypertrophy.? The left ventricular systolic ejection fraction was estimated at 60+/- 5%.? The right ventricle was mildly dilated and right ventricular systolic function was normal.? The left atrium was severely dilated.? There was severe aortic valve stenosis with an aortic valve area of 0.92.? The peak gradient was 114 and the mean gradient was 65. On 03/11/22 she c/o epigastric pain and told me that she suffered from heartburn. she was not on any medication for heartburn. The epigastric pain and nausea resolved on its own without treatment but she was started on Protonix. Late in the evening on 03/11/2022 she complained of chest pain and it was unrelieved with Protonix and Mylanta. An EKG was obtained and showed extensive T wave inversions in lead I, lead II, V3 through V6. The initial troponin was elevated at 266 and peaked at 276. A third troponin was trending down to 247. She was transferred to the telemetry unit and was seen by cardiology. the construction project coordinator felt the EKG changes were likely due to evolution of the first NSTEMI on 03/02/22. He diagnosed her with a new NSTEMI and eliza mmended continued medical management. She had no further chest pain while on the telemetry unit and she was transferred back to acute rehab on 03/14/22. There were no medication changes made while she was on Telemetry. On 03/16/22 she c/o substernal CP with radiation to the neck and the jaw.. ...she described it as the worst pain she ever had (this is what she has been having and calling heartburn.) An EKG was obtained and again showed deep T wave inversions in I, II and V3-6. There were NEW EKG changes with [address] elevation in lead III and t wave inversion ini AVF. She was given MS 2 mg and the pain resolved. A repeat EKG after the pain had resolved showed the ST elevation in III had resolved and AVF had a NS T wave abnormality. The initial troponin was 71 and the second is 70. She has had no further CP. I obtained the last EKG done at [facility] and there were a few mildly inverted T waves in the lateral leads but, nothing to the depth of the current T wave inversions and the ST elevation in III with inverted T in AVF are new today. I was in contact with the construction project coordinator who saw Maia at [facility] and wanted to transfer her back to but, he would not admit the patient. He told me a construction project coordinator would see her if she was admitted to the hospitalist service. the hospitalist refused admission and I was told to send her to their ED but, they were already boarding patients in the ED and did not know when she would be admitted there. Cardiology told me he did not know if the CP was related to the stenotic lesions in the RCA or to the or both. Library Director at [facility] told me she needed transferred. Finally I was in contact with Dr. Calos Jaramillo at [facility] and he agreed to accept the pt as a direct admit. She has had no return of CP and she is currently on 0.5 in of Nitropaste. BP is stable. She will be transferred to CV ICU at [facility] with Dr. Jaramillo accepting. We made a call to [facility] requesting the cath be pushed to [facility] so Dr. Jaramillo could review. We have obtained the results of the cath, the CTA done at [facility], ECHO done at [facility] and they were faxed to Dr. Jaramillo. We also faxed the ECHO done at [facility] and the cardiology consult and the Last EKG done at [facility] and the 2 EKG's done at [facility]. The ambulance just arrived at [facility] and will transport her to [facility] to the CV ICU with Dr. Jaramillo accepting. Physical Exam Const alert and oriented x3 Constitutional Narrative: She has a grimace on her face and appears to be in pain. She puts her hand over the sternum when I ask where the pain is and also has some pain in the upper epigastric region. She also points to her jaw and neck. No radiation to the arms or back. General Appearance: cooperative Eyes PERRL and EOMs intact bilaterally Eyes Narrative: No scleral icterus, no conjunctival injection, no purulent discharge, no mattering of the upper or lower eyelids. Neck supple and No nodes Neck Narrative: BL carotid bruits vs radiation of the MM Resp normal respiratory effort, normal air movement and clear to auscultation bilaterally Resp Narrative: No conversational dyspnea and she is able to speak in complete sentences. Cardio regular rate, regular rhythm, no rub and no gallops Cardio Narrative: No change in the 3/6 holosystolic MM at the 2nd RICS with radiation to the left ventricular outflow tract, lower left sternal border and apex. She also has a softer systolic murmur heard at the mitral listening post. There is no ectopy. GI normal to inspection, nondistended, normoactive bowel sounds, soft to palpation and non-tender GI Narrative: No guarding with palpation. BS's are normal. Some pain in the epigastric area but, not reproducible with palpation. Soft. Extremity no calf tenderness Extremity Narrative: She has sciatic pain in the posterior LLE with extension of the L leg General Extremity: Negative for edema Skin Skin Narrative: Not diaphoretic. General Skin Exam: dry skin Rashes: no rashes Neuro CN's II-XII intact bilaterally and no sensory deficits noted Neuro Narrative: weakness of the r side, arm> leg. No sensory deficits. No ataxia. No visual loss. Coordination / Balance: [id number] test normal and [id number] test normal Speech: speech normal Psych cooperative, affect normal, denies homicidal ideation and denies suicidal ideation; Negative for thought process normal Appearance: appropriate Attitude: No agitated Activity / Motor Behavior: Negative for restless Thought Content: No suicidality, No homicidality, No delusion(s) and No hallucination(s) Weight / BMI Weight Weight: 185 lb 3.013 oz Body Mass Index (BMI) 35.6 ABG / Lab / Microbiology Data Result Diagrams: 03/16/22 11:05 03/16/22 11:05 Laboratory: Laboratory Results - last 24 hr 03/16/22 11:05: Sodium 138, Potassium 4.4, Chloride 107, Carbon Dioxide 23.0, Anion Gap 8, BUN 24 H, Creatinine 1.11 H, Estim Creat Clear Calc 34.63, Est GFR (MDRD) Af Amer 62, Est GFR (MDRD) Non-Af 51 L, BUN/Creatinine Ratio 21.6 H, Glucose 114 H, Calcium 8.9, Magnesium 2.0, Troponin I High Sens 71 H 03/16/22 11:05: Hgb 9.5 L, Hct 30.2 L Indicators for Scoring Admitted with or Primary Diagnosis of CVA/Stroke: Yes Hx of CVA/Stroke: Yes Modified Etelvina Score MRS Score at time of Evaluation: 3-Moderate disability NIHSS NIHSS 1a. Level of Consciousness: Alert; keenly responsive 1b. LOC Questions: Answers BOTH questions correctly. 1c. LOC Commands: Performs both tasks correctly. 2. Best Gaze: Normal 3. Visual: No visual loss 4. Facial Palsy: Normal symmetrical movements 5a. Left Arm: No drift; arm holds 90 (or 45) degrees for full 10 seconds 5b. Right Arm: Drift; arm drifts downward but doesn?t hit the bed 6a. Left Leg: No drift; leg holds 30-degree position for full 5 seconds 6b. Right Leg: No drift; leg holds 30-degree position for full 5 seconds 7. Limb Ataxia: Absent 8. Sensory: Normal; no sensory loss 9. Best Language: No aphasia; normal 10. Dysarthria: Normal 11. Extinction and Inattention: No abnormality Total: 1 Stroke Questions Stroke Team Activated: No Meaningful Use Info Meaningful Use Diagnoses (Choose all that apply): Ischemic CVA CVA Therapy Assessed for PT,OT and/or ST?: Yes Ischemic Stroke Antithrombotic order at d/c?: Yes Dx of Atrial fib/flutter?: Yes Anticoagulant at discharge?: Yes Statins at discharge?: Yes Primary Dx Acute Ischemic CVA?: Yes IV tPA ordered during stay?: No Reason IV t-PA not ordered: Treatment not Indicated Discharge Plan Admission Admit Date/Time: 03/10/22 22:23 Attending Provider: Isis Lanier Consulting Providers: Antoinette De La Fuente ; Ham Pyle ; Claire Johnson ; Cherelle Santiago ; Beverly Varma [employer]YOR Discharge Orders/Prescriptions Prescriptions: No Action atorvastatin [Lipitor] 40 mg Tablet 40 mg PO QHS ipratropium-albuterol 0.5 mg-3 mg(2.5 mg base)/3 mL Solution For Nebulization 3 ml inhalation 4XD sennosides-docusate sodium [Senna with Docusate Sodium] 8.6-50 mg Tablet 1 tab-cap PO BID clopidogrel [Plavix] 75 mg Tablet 75 mg PO DAILY aspirin 81 mg Tablet,Chewable 81 mg PO DAILY Eliquis 2.5 mg Tablet 2.5 mg PO BID losartan 50 mg Tablet 50 mg PO DAILY amlodipine [Norvasc] 5 mg Tablet 5 mg PO DAILY spironolactone [Aldactone] 25 mg Tablet 25 mg PO DAILY Referrals / Follow Up: Carlitos Mckeon MD [Med Staff - Active Staff] - 04/15/22 1:45 pm Disposition Discharge Orders: Discharge Patient (Routine); Ordered 03/11/22 Ordered By: Dr. Isis Lanier Charges/Coding Visit Charges Inpatient E&M: 43449 Disch Hosp >30min
[2022-03-16 15:43] VITALS: PULSE 67; RESP 18; O2SAT 98
[2022-03-16 16:08] LABS: Troponin-I HS 70 pg/mL (3.0-54.0)
[2022-03-16] MEDS: 0.9% Saline Lock 10 ML Syringe IV (16:13)
[2022-03-16 16:18] VITALS: BP 170/40; PULSE 71
[2022-03-16] MEDS: Nitroglycerin Oint 1 INCH PACKET 0.5 INCH TD (16:18)
[2022-03-16 16:56] VITALS: BP 155/56; PULSE 70; RESP 18; O2SAT 100
--- NOTE | 2022-03-16 17:26 | NURSING ---
[facility] personnel picked up pt to transport to [facility]. Dr Lanier called report to Dr. Jaramillo who will be receiving the pt in the cardiovascular ICU. Dr. Lanier also contacted family and updated them on pt status and plan to transport pt to [facility].
== END 2022-03-16 17:29 | disposition short-term general hospital (02) | DRG 56 ==
PROVIDERS: Admitting Provider Internal Medicine; Visit Provider Internal Medicine
DX: I69.351 Hemiplegia and hemiparesis following cerebral infarction affecting right dominant side (principal); I21.4 Non-ST elevation (NSTEMI) myocardial infarction; I22.2 Subsequent non-ST elevation (NSTEMI) myocardial infarction; I13.0 Hypertensive heart and chronic kidney disease with heart failure and stage 1 through stage 4 chronic kidney disease, or unspecified chronic kidney disease; I50.32 Chronic diastolic (congestive) heart failure; I25.110 Atherosclerotic heart disease of native coronary artery with unstable angina pectoris; I48.0 Paroxysmal atrial fibrillation; N18.31 Chronic kidney disease, stage 3a; J44.9 Chronic obstructive pulmonary disease, unspecified; I69.391 Dysphagia following cerebral infarction; I69.322 Dysarthria following cerebral infarction; K21.9 Gastro-esophageal reflux disease without esophagitis; E78.5 Hyperlipidemia, unspecified; I69.318 Other symptoms and signs involving cognitive functions following cerebral infarction; I35.2 Nonrheumatic aortic (valve) stenosis with insufficiency; Z79.01 Long term (current) use of anticoagulants; Z87.891 Personal history of nicotine dependence; Z79.02 Long term (current) use of antithrombotics/antiplatelets; Z79.82 Long term (current) use of aspirin; Z79.899 Other long term (current) drug therapy; E66.9 Obesity, unspecified; Z68.35 Body mass index [BMI] 35.0-35.9, adult; Z95.5 Presence of coronary angioplasty implant and graft
CPT/HCPCS: 36415; 80048; 80053; 83735; 84100; 84484; 85014; 85018; 85025; 85027; 87426; 92523; 92610; 93005; 93306; 94640; 97110; 97116; 97129; 97130; 97162; 97166; 97530; 97535; 97802; 99252; G0008; 90686; A4216; G0463; J2405

== ENCOUNTER 2022-03-12 08:33 | Observation (INO) | payer MEDICARE, SELFPAY ==
[2022-03-12] VITALS (13 sets, daily range): BP systolic 139–170; BP diastolic 48–69; PULSE 61–77; RESP 16–18; TEMP 36.7–37.1; O2SAT 94–100; BMI 34.2
--- NOTE | 2022-03-12 00:20 | HP.PCM.HOS_ITS ---
[facility] - General General Date of Admission: 03/12/22 Date of Service: 03/12/22 Chief Complaint: upper abdominal pain HPI Narrative VIRGINIE ARTEAGA, is a 76 F with an extensive PMH as outlined who presents from the inpatient rehab unit with a complaint of upper abdominal pain. Patient was admitted to the rehab unit on 03/10/2022 on account of debility due to left MCA stroke. She has a past medical history of COPD, heart failure preserved ejectio n fraction, obesity and tobacco dependence as well as newly diagnosed A. fib and CAD. She had presented at [facility] on 03/02/2022 with a complaint of shortness of breath. She was found to be in new onset A. fib with acute decompensated congestive heart failure. EKG was concerning for ST elevation AR. Initial troponin was elevated and BNP was also grossly elevated. She was diuresed and started on heparin drip. She was initially started on amiodarone drip as well but on account of development of tachybradycardia syndrome this was discontinued. She was transferred to [facility]. Diagnosis was changed to non-STEMI and 2D echo done showed EF of 45 to 50% with severe aortic stenosis and severely dilated left atrium. She had a cardiac cath on 03/03/2022 which showed 95% stenosis of the proximal LAD, 80% stenosis of the proximal RCA and 70% stenosis of the mid RCA. She had a stent placed in the LAD. Post cath course was complicated by significant right-sided weakness, aphasia and dysarthria. She also vomited and ended up being intubated. CT of the brain done showed acute infarct in the left frontoparietal region. CTA head and neck showed total occlusion of the left cervical and proximal internal carotid artery. She was transferred to [facility] where she was considered to be out of window for tenecteplase. Attempted thrombectomy was not successful. She was placed on dual antiplatelet therapy as well as high intensity statin. MRI of the brain showed scattered left hemispheric mayers-white subcortical subcentimeter infarcts and isolated right cerebellar punctate infarct which was thought to be due to emboli. She was transferred to the inpatient rehab unit at [place] for intensive therapy. She started complaining of upper abdominal pain today in the rehab unit. At the time of my review she did not have the pain anymore. She denied any fever, chills, shortness of breath, palpitations, dizziness, nausea vomiting or diarr hea. Review of symptoms otherwise negative. EKG showed no acute ST changes but troponin done was 218. Decision therefore made to admit patient to the progressive care unit to be worked up for elevated troponin as she had only 1 stent placed in the proximal LAD in and though she has 80% stenosis of the proximal RCA and 70% stenosis of the mid RCA. [facility] Medical History (Updated 03/12/22 @ 00:[address] Meredith Ocampo MD) Congestive heart failure (CHF) Coronary artery disease GERD (gastroesophageal reflux disease) Hypertension Severe aortic stenosis Sleep apnea Stroke/cerebrovascular accident Tobacco dependence Home Medications apixaban 2.5 mg tablet (Eliquis) 2.5 mg PO BID blood thinner 03/10/22 [History Last Taken Unknown] aspirin 81 mg chewable tablet 81 mg PO DAILY heart 03/10/22 [History Last Taken Unknown] atorvastatin 40 mg tablet (Lipitor) 40 mg PO QHS cholesterol 03/10/22 [History Last Taken Unknown] clopidogrel 75 mg tablet (Plavix) 75 mg PO DAILY blood thinner 03/10/22 [History Last Taken Unknown] ipratropium 0.5 mg-albuterol 3 mg (2.5 mg base)/3 mL nebulization soln 3 ml inhalation 4XD sob or wheezing 03/10/22 [History Last Taken Unknown] sennosides 8.6 mg-docusate sodium 50 mg tablet (Senna with Docusate Sodium) 1 tab-cap PO BID stool softener 03/10/22 [History Last Taken Unknown] amlodipine 5 mg tablet (Norvasc) 5 mg PO DAILY blood pressure 03/11/22 [History Last Taken Unknown] losartan 50 mg tablet 50 mg PO DAILY blood pressure 03/11/22 [History Last Taken Unknown] spironolactone 25 mg tablet (Aldactone) 25 mg PO DAILY blood pressure 03/11/22 [History Last Taken Unknown] Allergy/AdvReac Type Severity Reaction Status Date / Time No Known Allergies Allergy Verified 03/10/22 23:04 Family History (Updated 03/11/22 @ 16:[address] Isis Lanier DO) Father , of an AR CAD (coronary artery disease) Brother , from an AR CAD (coronary artery disease) Diabetes Sister Alcoholism Mother , of old age No problems noted. Surgical History (Updated 03/11/22 @ 16:[address] Isis Lanier DO) History of appendectomy History of cholecystectomy History of total abdominal hysterectomy and bilateral salpingo-oophorectomy Social History (Updated 03/11/22 @ 16:[address] Isis Lanier DO) household members: family and other details: She lives with her son Jermaine and her brother Marbin in [place]. housing: house number of children: 4 current occupational status: retired Smoking Status: Former smoker quit date: 02/24/22 pack-years: 40 Tobacco: How many years used: 40 counseling given: counseling >3 minutes alcohol intake: never substance use type: does not use ROS Constitutional Constitutional: Reports fatigue, malaise and weakness; Denies anorexia, chills or fever(s) Eyes Eyes: Denies change in vision ENT HEENT: Denies dysphagia, headache(s) or sore throat Cardiovascular Cardiovascular: Denies chest pain, dyspnea on exertion, edema, lightheadedness, orthopnea, palpitations, paroxysmal nocturnal dyspnea, rapid heart rate or syncope Respiratory/Chest Respiratory/Chest: Denies cough, dyspnea, productive cough, shortness of breath at rest or shortness of breath with exertion Gastrointestinal Gastrointestinal: Reports abdominal pain; Denies constipation, diarrhea, dyspepsia, hematemesis, nausea or vomiting Genitourinary Genitourinary: Denies burning urination, dysuria or urinary frequency Musculoskeletal Musculoskeletal: Denies arthralgias Neurologic Neurologic: Denies confusion, dizziness, headache(s), seizures or syncope Psychiatric Psychiatric: Denies anxiety or depression Physical Exam Const alert, oriented x3 and no apparent distress HEENT normocephalic, head/scalp atraumatic, hearing grossly normal bilaterally and moist oral mucous membranes Mouth: oral and palatal mucosa normal Eyes PERRL, EOMs intact bilaterally and conjunctivae normal Resp normal respiratory effort, no retractions, no use of accessory muscles and clear to auscultation bilaterally Cardio regular rate, regular rhythm, S1 normal heart sound, S2 normal heart sound and no murmurs GI normal to inspection, nondistended, normoactive bowel sounds, soft to palpation and non-tender Extremity normal to inspection, full ROM and no clubbing, cyanosis or edema Neuro oriented x3, CN's II-XII intact bilaterally, moves all extremities and no focal motor deficits Sensorium / Orientation: awake and alert Motor Exam: strength 5/5 throughout Psych affect normal Assessment & Plan Assessment/Plan (1) NSTEMI, initial episode of care: PLAN: Plan #Nstemi * admit to PCU * had a history of recent nonstemi with cardiac cath on 03/03/2022 at [facility] which showed 90% stenosis in proximal LAD, and 80% stenosis of proximal RCA as well as 70% stenosis of mid RCA * had stent placed in the proximal LAD then * already on aspirin, plavix and statin. Will continue * consult cardiology * cycle troponins * * #Recent acute ischemic stroke * post cath course was complicated by right sided weakness, aphasia and dysarthria * CT brain done then showed acute infarct in left frontoparietal region and MRI of brain showed scattered left hemispheric mayers-white subcortical subcentimeter infarcts and isolated right cerebellar punctate infarct which was thought to be due to emboli.? * on aspirin and plavix as well as statin * PT/OT consult * fall precautions * #Afib: * currently in NSR * most recent 2D echo at [facility] showed EF of 60+/- 5%, withmildly dilated RV nad normal RVSF; severely dilated LA with severe aortic valve stenosis * on carvedilol. Not on anticoagulation due to concerns about increased risk of hemorrhagic transformation due to the size of the CVA. Apparently plan was that when she was able to start oral anticoagulation that she would need 4 weeks of anticoagulation and aspirin will be discussed to do this should continue which is Plavix and oral anticoagulant. * was started on eliquis yesterday * * #Severe aortic stenosis: as per 2D echo above. To follow up with cardiology on outpatient basis #CAD s/p stent: as under nonstemi #Chronic HFpEF: not in exacerbation. EF is ~ 60%/ On losartan and amlodipine as well as spironolactone. DVT prophylaxis: on eliquis already. # Charges/Coding Visit Charges Inpatient E&M: 56403 Init Hosp L3
[2022-03-12] MEDS: 0.9% Saline Lock 10 ML Syringe IV ×2 (01:36→20:58)
[2022-03-12] MEDS: Ondansetron 4 MG/2 ML Vial IV (01:36)
--- NOTE | 2022-03-12 01:43 | NURSING ---
Emergency documentation
[2022-03-12 04:14] LABS: Absolute Lymphocyte Count 2.22 X10^3/uL (0.83-4.51); Absolute Neutrophil Count 6.4 X10^3/uL (2.0-7.7); Basophil# 0.05 X10^3/uL; Basophil% 0.5 % (0-1); Hematocrit 29.4 % (37-47); Hemoglobin 9.5 g/dL (12.0-15.0); Lymphocyte # 2.22 X10^3/ul (0.83-4.51); Lymphocyte % 22.4 % (19-41); Mean Corp Hgb Conc 32.3 g/dL (32-36); Mean Corpuscular Hgb 29.4 pg (27.0-32.0); Mean Platelet Vol. 10.4 fl (6.2-12.0); Monocyte# 0.92 X10^3/uL; Monocyte% 9.3 % (0-10); NRBC Flagged by Analyzer 0 % (0-5); Neutrophil # 6.43 X10^3/uL (2.7-7.7); Neutrophil % 64.9 % (47-70); Platelet Count 353 K/mm3 (150-450); RBC Distribution Width CV 14.6 % (11.6-14.6); RBC Distribution Width SD 48.6 fl (35.1-43.9); Red Blood Count 3.23 M/mm3 (4.2-5.4); White Blood Count 9.9 K/mm3 (4.4-11.0)
[2022-03-12 04:47] LABS: Troponin-I HS 247 pg/mL (3.0-54.0)
[2022-03-12 04:53] LABS: Anion Gap 3 (5-15); BUN 19 mg/dL (7-18); BUN/Creat Ratio 19.1 RATIO (10-20); Calcium,Total 8.4 mg/dL (8.5-10.1); Chloride 108 mmol/L (98-107); Creatinine, Serum 0.99 mg/dL (0.55-1.02); EST Glomerular Filtration Rate 58 mL/min (>60); Est Glom Filt Rate - Afr Amer 70 mL/min (>60); Estimated Creatinine Clearance 38.83 ml/min; Glucose 119 mg/dL (74-106); Potassium 4.2 mmol/L (3.5-5.1); Sodium Level 141 mmol/L (136-145)
--- NOTE | 2022-03-12 08:26 | CON.PCM.CA_ITS ---
Assessment & Plan Assessment/Plan (1) NSTEMI, initial episode of care: PLAN: Patient presents with abdominal discomfort and has mild troponin elevation. Though she has EKG changes I suspect that these are evolutionary changes from her previous procedures. She does have residual disease noted in the circumflex artery and right coronary artery but with her recent complication the recommendation will be to continue with medical care. I would recommend repeating her echocardiogram to reassess her ventricular function and if there is no significant change we would continue with the previously outlined plans. (2) Paroxysmal A-fib: PLAN: She does have evidence of paroxysmal atrial fibrillation. The plan to be to continue with anticoagulation with Eliquis 2.5 mg twice a day Controlled ventricular response rate with beta-stewart. (3) Severe aortic stenosis: PLAN: She does have severe aortic stenosis. At some point I guess that she would need to have her aortic valve replaced. The timing of this will depend on her clinical progress as well as the plans outlined in [place]. This is not entirely clear at this time. (4) Stroke/cerebrovascular accident: PLAN: She recently had what appears to be a postprocedure cerebrovascular accident. She will be on triple therapy for a month and then her aspirin discontinued and then she will continue with Eliquis and clopidogrel. (5) Hypertension: PLAN: Her blood pressure appears to be under fair control we will continue with current aggressive risk factor modification. * Her blood pressure will need to be better controlled. (6) Hyperlipidemia: PLAN: She does have a history of hyperlipidemia and will continue with aggressive risk factor modification. Thank you for allowing me to participate in the care of your patient. Please don't hesitate to call if any issues arise. HPI Consult Data Date of Consult: 03/12/22 HPI Narrative HPI Narrative: VIRGINIE ARTEAGA, is a 76 F who presents with abdominal discomfort. She was admitted from the inpatient rehab unit with a complaint of upper abdominal pain. Patient was admitted to the rehab unit on 03/10/2022 on account of debility due to left MCA stroke.? She has a past medical history of COPD, heart failure preserved ejection fraction, obesity and tobacco dependence as well as newly diagnosed A. fib and CAD.? She had presented at [facility] on 03/02/2022 with a complaint of shortness of breath.? She was found to be in new onset A. fib with acute decompensated congestive heart failure.? EKG was concerning for ST elevation [place].? Initial troponin was elevated and BNP was also grossly elevated.? She was diuresed and started on heparin drip.? She was initially started on amiodarone drip as well but on account of development of tachybradycardia syndrome this was discontinued.? She was transferred to [facility].? Diagnosis was changed to non-STEMI and 2D echo done showed EF of 45 to 50% with severe aortic stenosis and severely dilated left atrium.? She had a cardiac cath on 03/03/2022 which showed 95% stenosis of the proximal LAD, 80% stenosis of the proximal RCA and 70% stenosis of the mid RCA.? She had a stent placed in the LAD.? Post cath course was complicated by significant right-sided weakness, aphasia and dysarthria.? She also vomited and ended up being intubated.? CT of the brain done showed acute infarct in the left frontoparietal region.? 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 She was transferred to [facility] where she was considered to be out of window for tenecteplase.? Attempted thrombectomy was not successful.? She was placed on dual antiplatelet therapy as well as high intensity statin.? MRI of the brain showed scattered left hemispheric mayers-white subcortical subcentimeter infarcts and isolated right cerebellar punctate infar ct which was thought to be due to emboli.? She was transferred to the inpatient rehab unit at [place] for intensive therapy. She started complaining of upper abdominal pain today in the rehab unit.? She is currently pain-free and sleeping quite peacefully she denied any fever, chills, shortness of breath, palpitations, dizziness, nausea vomiting or diarrhea. Her EKG demonstrated T wave inversions noted anteriorly. Her review of systems was otherwise unremarkable. It is not quite clear what her overall long-term plan was. Cardiology was called to evaluate her because of her abnormal troponin which was obtained. [facility] Medical History (Updated 03/12/22 @ 00:[address] Meredith Ocampo MD) Congestive heart failure (CHF) Coronary artery disease GERD (gastroesophageal reflux disease) Hypertension Severe aortic stenosis Sleep apnea Stroke/cerebrovascular accident Tobacco dependence Home Medications apixaban 2.5 mg tablet (Eliquis) 2.5 mg PO BID blood thinner 03/10/22 [History Last Taken Unknown] aspirin 81 mg chewable tablet 81 mg PO DAILY heart 03/10/22 [History Last Taken Unknown] atorvastatin 40 mg tablet (Lipitor) 40 mg PO QHS cholesterol 03/10/22 [History Last Taken Unknown] clopidogrel 75 mg tablet (Plavix) 75 mg PO DAILY blood thinner 03/10/22 [History Last Taken Unknown] ipratropium 0.5 mg-albuterol 3 mg (2.5 mg base)/3 mL nebulization soln 3 ml inhalation 4XD sob or wheezing 03/10/22 [History Last Taken Unknown] sennosides 8.6 mg-docusate sodium 50 mg tablet (Senna with Docusate Sodium) 1 tab-cap PO BID stool softener 03/10/22 [History Last Taken Unknown] amlodipine 5 mg tablet (Norvasc) 5 mg PO DAILY blood pressure 03/11/22 [History Last Taken Unknown] losartan 50 mg tablet 50 mg PO DAILY blood pressure 03/11/22 [History Last Taken Unknown] spironolactone 25 mg tablet (Aldactone) 25 mg PO DAILY blood pressure 03/11/22 [History Last Taken Unknown] Allergy/AdvReac Type Severity Reaction Status Date / Time No Known Allergies Allergy Verified 03/10/22 23:04 Family History (Updated 03/11/22 @ 16:[address] Isis Lanier DO) Father , of an NH CAD (coronary artery disease) Brother , from an NH CAD (coronary artery disease) Diabetes Sister Alcoholism Mother , of old age No problems noted. Surgical History (Updated 03/11/22 @ 16:[address] Isis Lanier DO) History of appendectomy History of cholecystectomy History of total abdominal hysterectomy and bilateral salpingo-oophorectomy Social History (Updated 03/11/22 @ 16:[address] Isis Lanier DO) household members: family and other details: She lives with her son Jermaine and her brother Marbin in [place]. housing: house number of children: 4 current occupational status: retired Smoking Status: Former smoker quit date: 02/24/22 pack-years: 40 Tobacco: How many years used: 40 counseling given: counseling >3 minutes alcohol intake: never substance use type: does not use ROS Constitutional Constitutional: Reports fatigue, malaise and weakness; Denies anorexia, chills or fever(s) Eyes Eyes: Denies change in vision ENT HEENT: Denies dysphagia, headache(s) or sore throat Cardiovascular Cardiovascular: Denies chest pain, dyspnea on exertion, edema, lightheadedness, orthopnea, palpitations, paroxysmal nocturnal dyspnea, rapid heart rate or syncope Respiratory/Chest Respiratory/Chest: Denies cough, dyspnea, productive cough, shortness of breath at rest or shortness of breath with exertion Gastrointestinal Gastrointestinal: Reports abdominal pain; Denies constipation, diarrhea, dyspepsia, hematemesis, nausea or vomiting Genitourinary Genitourinary: Denies burning urination, dysuria or urinary frequency Musculoskeletal Musculoskeletal: Denies arthralgias Neurologic Neurologic: Denies confusion, dizziness, headache(s), seizures or syncope Psychiatric Psychiatric: Denies anxiety or depression Physical Exam Const alert, oriented x3 and no apparent distress HEENT normocephalic, head/scalp atraumatic, hearing grossly normal bilaterally and moist oral mucous membranes Mouth: oral and palatal mucosa normal Eyes PERRL, EOMs intact bilaterally and conjunctivae normal Resp normal respiratory effort, no retractions, no use of accessory muscles and clear to auscultation bilaterally Cardio regular rate, regular rhythm, S1 normal heart sound and S2 normal heart sound Heart Sounds: murmur systolic III/ loud early GI normal to inspection, nondistended, normoactive bowel sounds, soft to palpation and non-tender Extremity normal to inspection, full ROM and no clubbing, cyanosis or edema Neuro oriented x3, CN's II-XII intact bilaterally, moves all extremities and no focal motor deficits Sensorium / Orientation: awake and alert Motor Exam: strength 5/5 throughout Psych affect normal Risk Stratification Risk Stratification Applicable: Yes Age >/= 65: Yes >/= 3 CAD Risk Factors (HTN, HLD, DM, family hx of CAD, or current smoker): Yes Aspirin Use in the Past 7 Days: Yes Severe Angina (>/= episodes in 24 hours): No EKG ST Changes >/= 0.5mm: No Positive Cardiac Marker: Yes AC Risk Stratification Score: 4 AC % Risk: 20% Risk Objective Data Vital Signs: Vital Signs Temp Pulse Resp BP Pulse Ox O2 Del Method 98.2 F 62 18 143/51 H 94 Room Air 03/12/22 08:15 03/12/22 08:15 03/12/22 08:15 03/12/22 08:15 03/12/22 08:15 03/12/22 08:15 Oxygen Delivery Method Room Air Weight: 186 lb 15.232 oz Body Mass Index (BMI) 34.2 Lab / Micro Data Result Diagrams: 03/12/22 03:44 03/12/22 03:44 Labs: Laboratory Results - last 24 hr 03/12/22 03:44: WBC 9.9, RBC 3.23 L, Hgb 9.5 L, Hct 29.4 L, MCV 91.0, MCH 29.4, MCHC 32.3, RDW Std Deviation 48.6 H, RDW Coeff of Xochilt 14.6, Plt Count 353, MPV 10.4, Immature Gran % (Auto) 0.900, Neut % (Auto) 64.9, Lymph % (Auto) 22.4, [place] % (Auto) 9.3, Eos % (Auto) 2.0, Baso % (Auto) 0.5, Absolute Neuts (auto) 6.4, Absolute Lymphs (auto) 2.22, Nucleated RBC % 0 03/12/22 03:44: Sodium 141, Potassium 4.2, Chloride 108 H, Carbon Dioxide 30.0, Anion Gap 3 L, BUN 19 H, Creatinine 0.99, Estim Creat Clear Calc 38.83, Est GFR (MDRD) Af Amer 70, Est GFR (MDRD) Non-Af 58 L, BUN/Creatinine Ratio 19.1, Glucose 119 H, Calcium 8.4 L 03/12/22 03:44: Troponin I High Sens 247 H* Cardiology Labs/Tests 03/12/22 03:44: WBC 9.9, RBC 3.23 L, Hgb 9.5 L, Hct 29.4 L, MCV 91.0, MCH 29.4, MCHC 32.3, Plt Count 353, MPV 10.4, Immature Gran % (Auto) 0.900, Neut % (Auto) 64.9, Lymph % (Auto) 22.4, [place]rell % (Auto) 9.3, Eos % (Auto) 2.0, Baso % (Auto) 0.5, Absolute Neuts (auto) 6.4, Nucleated RBC % 0 03/12/22 03:44: Sodium 141, Potassium 4.2, Chloride 108 H, Carbon Dioxide 30.0, Anion Gap 3 L, BUN 19 H, Creatinine 0.99, Est GFR (MDRD) Af Amer 70, Est GFR (MDRD) Non-Af 58 L, BUN/Creatinine Ratio 19.1, Glucose 119 H, Calcium 8.4 L Rhythm: EKG: ECHO: Stress Test: Cardiac Cath: PCI: CT Surgery: Holter monitor: EPS: PPM: CXR: Chest CT Scan:
[2022-03-12] MEDS: Senna/Docusate Sodium 1 Tablet PO (10:20)
[2022-03-12] MEDS: Clopidogrel Bisulfate 75 MG Tablet PO (10:20)
[2022-03-12] MEDS: Spironolactone 25 MG Tablet PO (10:20)
[2022-03-12] MEDS: amLODIPine 5 MG Tablet PO (10:20)
[2022-03-12] MEDS: Losartan Potassium 50 MG Tablet PO (10:20)
[2022-03-12] MEDS: APIXABAN 2.5 MG TABLET (WCH) PO ×2 (10:20→20:58)
[2022-03-12] MEDS: Aspirin 81 MG TAB.CHEW PO (10:20)
[2022-03-12] MEDS: FLU VACC QS2022-23(6MOS UP)/PF 60 MCG/0.5 ML SYRINGE IM (10:26)
--- NOTE | 2022-03-12 10:28 | PN.HOSP_ITS ---
Subjective Subjective Follow-up acute non-STEMI Objective Data Objective Data Vital Signs: Vital Signs Temp Pulse Resp BP Pulse Ox O2 Del Method 98.2 F 61 18 139/48 H 97 Room Air 03/12/22 10:17 03/12/22 10:17 03/12/22 10:17 03/12/22 10:17 03/12/22 10:17 03/12/22 10:17 Oxygen Delivery Method Room Air Weight: 84.8 kg Body Mass Index (BMI) 34.2 Lab / Micro Data Result Diagrams: 03/12/22 03:44 03/12/22 03:44 Labs: Laboratory Results - last 24 hr 03/12/22 03:44: WBC 9.9, RBC 3.23 L, Hgb 9.5 L, Hct 29.4 L, MCV 91.0, MCH 29.4, MCHC 32.3, RDW Std Deviation 48.6 H, RDW Coeff of Xochilt 14.6, Plt Count 353, MPV 10.4, Immature Gran % (Auto) 0.900, Neut % (Auto) 64.9, Lymph % (Auto) 22.4, [place] % (Auto) 9.3, Eos % (Auto) 2.0, Baso % (Auto) 0.5, Absolute Neuts (auto) 6.4, Absolute Lymphs (auto) 2.22, Nucleated RBC % 0 03/12/22 03:44: Sodium 141, Potassium 4.2, Chloride 108 H, Carbon Dioxide 30.0, Anion Gap 3 L, BUN 19 H, Creatinine 0.99, Estim Creat Clear Calc 38.83, Est GFR (MDRD) Af Amer 70, Est GFR (MDRD) Non-Af 58 L, BUN/Creatinine Ratio 19.1, Glucose 119 H, Calcium 8.4 L 03/12/22 03:44: Troponin I High Sens 247 H* Physical Exam Narrative GENERAL: cooperative HEENT: Atraumatic; normocephalic EYES; Anicteric, Normal Conjunctiva NECK; supple, normal thyroid, RESPIRATORY: Diminished to auscultation CARDIOVASCULAR: Regular S1 S2, GI: soft, normoactive bowel sounds, : No Renal angle tenderness; EXTREMITIES: No edema, no clubbing, MUSCULOSKELETAL: no muscle wasting NEURO: Awake; right upper extremity weakness SKIN: No Rash PSYCH; Flat affect Assessment & Plan Assessment/Plan (1) NSTEMI, initial episode of care: PLAN: Plan Patient is a 76-year-old lady with recent acute ischemic stroke complicated by right-sided weakness who was transferred from the inpatient rehab unit to the ED with chest discomfort. Was found to have elevated troponin consistent with acute non-STEMI admitted to monitored bed with consultation placed to cardiology 1. Acute non-STEMI ? Patient had apparently undergone left heart catheterization at [facility] on 03/03/2022 on account of non-STEMI. She was found to have 90% stenosis in the proximal LAD and 80% stenosis in the proximal RCA and 70% stenosis of mid RCA. Patient underwent PCI with ALLEN. Discharged on aspirin Plavix as well as statin therapy. Case discussed with Dr. Mckeon patient will undergo 2D echo prior to any further decision be made 2. Acute recent CVA ? Patient was being managed in the inpatient rehab unit prior to transfer to the ED and subsequently admission 3. Paroxysmal A. fib ? Patient presented in sinus rhythm. Patient is on Eliquis continued 4. Valvular heart disease ? Recent echo obtained demonstrated EF of 60% with severe aortic valve stenosis 5. Coronary artery disease ? With recent intervention of multiple lesions discussed above 6. Hypertension - Blood pressure controlled, home medications continued with dose adjustment as needed 7. Dyslipidemia -Patient is on statin therapy, continued at home dose 8. Class I obesity with BMI of 34.2 ? Weight loss advised 9. DVT prophylaxis ? On Eliquis Time spent in the patient's overall evaluation,decision-making process, review of diagnostic data, adjustment of management, discussion with other providers, nursing nursing and ancillary staff involved in patient's care documentation, 40 Minutes Charges/Coding Visit Charges Inpatient E&M: 18545 Subs Hosp L2
--- NOTE | 2022-03-12 13:12 | CASEMGMT ---
SW met with patient. Introduced self and role at [facility]. SW asked patient if her plan is to return to [facility] Inpatient Rehab Unit at discharge. Patient confirmed that is her plan. Plan: d/c back to [facility] ready. Christianne GURROLA
[2022-03-12] MEDS: Ipratropium/Albuterol Sulfate 3 ML AMPUL.NEB INHALATION ×2 (14:25→19:12)
--- NOTE | 2022-03-12 14:36 | CASEMGMT ---
MUNIR received a call from patient's son, Tiago Iqbal. Tiago asked about a medical update on his mom. MUNIR let Tiago know that SW can have the nurse call him as SW is not able to give out any medical information. MUNIR did let Tiago know SW spoke with patient this am and she was doing well. SW will have RN call him when she is able. MUNIR gave ELLEN Weeks the message. Plan: Return to [facility] 4th floor Rehab Unit. Christianne GURROLA
--- NOTE | 2022-03-12 15:33 | ECHOD_ITS ---
Reason For Study: s/p ID Procedure This was a 2D Doppler, Color Flow transthoracic echocardiogram. Exam performed portable in patient room. Left Ventricle Normal LV size. Moderate concentric left ventricular hypertrophy. Left ventricular systolic function is normal. The estimated ejection fraction is 55 %. No regional wall motion abnormalities noted. Right Ventricle Normal RV size. Normal systolic function. Atria The left atrium is mildly enlarged. Normal right atrium. Mitral Valve There is mild mitral annular calcification. Mild (1+) eccentric mitral valve insufficiency. Tricuspid Valve Normal tricuspid valve. Aortic Valve Trisinus/trileaflet aortic valve. Mild focal aortic valve calcification. Peak aortic valve gradient 88 mmHg. Mean aortic valve gradient 47 mmHg. Severe aortic stenosis. Calculated aortic valve area (continuity equation) is 0.8 cm2. Mild (1+) aortic valve insufficiency. Pulmonic Valve Normal pulmonic valve. Great Vessels Normal aortic root. The pulmonary artery is normal size. Normal inferior vena cava. Pericardium/Pleural No pericardial effusion. MMode/2D Measurements & Calculations LVIDd: 6.1 cm IVSd: 1.3 cm LVOT diam: 2.0 cm LVIDs: 3.7 cm LVPWd: 1.6 cm LVOT area: 3.0 cm2 RVDd: 3.6 cm FS: 39.4 % Ao root diam: 2.8 cm LAV(MOD-bp): 83.3 ml LA A4 area: 23.5 cm2 LA dimension: 4.4 cm LAV(MOD-bp) Indexed: 44.1 ml/m2 LAV(MOD-sp2): 87.2 ml LAV(MOD-sp4): 78.2 ml RA A4 area: 11.9 cm2 Time Measurements MV dec time: 0.27 sec Doppler Measurements & Calculations MV E max marshall: 105.0 cm/sec Lat Peak E' Marshall: 5.5 cm/sec Med Peak E' Marshall: 6.3 cm/sec MV A max marshall: 115.5 cm/sec E/E' lat: 19.1 E/E' med: 16.8 MV E/A: 0.91 MV V2 max: 127.5 cm/sec MV P1/2t max marshall: 126.5 cm/sec Ao V2 max: 470.9 cm/sec MV max P.5 mmHg MV P1/2t: 91.3 msec Ao max P.8 mmHg MV V2 mean: 72.0 cm/sec MV dec slope: 405.8 cm/sec2 Ao V2 mean: 321.8 cm/sec MV mean P.4 mmHg Ao mean P.8 mmHg MV V2 VTI: 45.0 cm MVA(P1/2t): 2.4 cm2 Ao V2 VTI: 105.9 cm MVA(VTI): 1.9 cm2 AV (velocity ratio): 0.26 NGA(I,D): 0.79 cm2 NGA(V,D): 0.78 cm2 AI max marshall: 468.4 cm/sec LV V1 max: 121.7 cm/sec MR max marshall: 664.0 cm/sec AI max P.8 mmHg LV V1 max P.9 mmHg MR max P.4 mmHg LV V1 mean P.5 mmHg MR mean marshall: 530.0 cm/sec AI dec slope: 291.4 cm/sec2 LV V1 mean: 89.5 cm/sec MR mean P.4 mmHg AI P1/2t: 470.8 msec LV V1 VTI: 27.8 cm MR VTI: 245.4 cm SV(LVOT): 83.9 ml PA V2 max: 105.9 cm/sec PI dec slope: 179.6 cm/sec2 ECHO/Echo Complete Interpretation Summary Normal LV size. Moderate concentric left ventricular hypertrophy. Left ventricular systolic function is normal. The estimated ejection fraction is 55 %. The left atrium is mildly enlarged. Mean aortic valve gradient 47 mmHg. Mild (1+) aortic valve insufficiency. Peak aortic valve gradient 88 mmHg. Severe aortic stenosis. Ordering Physician: Ham Hobson Performed By: Jeff Parikh RCS
--- NOTE | 2022-03-12 16:27 | CHAPLAIN ---
Type of Pastoral Visit _x__ Initial Visit ___ Follow-up Visit ___ On-call Visit ___ General Patient Visit ___ Spiritual Assessment ___ Family Conference ___ Bereavement ___ Rapid Response ___ Code Blue ___ Other (describe below) Pastoral Care Referral From _x__ Patient ___ Family ___ Nurse ___ Physician ___ Stem Roller Or Crusher Operator ___ Brass Molder ___ Other (describe below) Sacrament/Intervention ___ Active listening ___ Anointing ___ Mosque ___ Bereavement ___ Communion ___ Sharon exploration ___ ___ Life review _x__ Prayer ___ Reconciliation ___ Sacrament of Sick _x__ Supportive presence ___ Wedding ___ Other (describe below) Pastoral Comments patient with some difficulty in communication with speech and hearing; being patient to wait for pt to express herself the pt welcomed a prayer and stated doing okay otherwise
--- NOTE | 2022-03-12 17:01 | CASEMGMT ---
ELLEN VILLEGAS in to complete FRANCO form. ELLEN VILLEGAS explained FRANCO form to patient, patient voiced understanding. Patient signed FRANCO form and filed in chart. Patient provided with copy of signed FRANCO form. Patient had no further questions or concerns at this time.
--- NOTE | 2022-03-12 19:19 | CPS ---
pt requested O2 for comfort HS
[2022-03-12] MEDS: Atorvastatin Calcium 40 MG Tablet PO (20:58)
[2022-03-13 00:51] LABS: Magnesium 2.2 mg/dL (1.6-2.6)
[2022-03-13 03:29] VITALS: BP 121/61; PULSE 70; RESP 18; TEMP 36.9; O2SAT 97
[2022-03-13 06:24] LABS: Absolute Lymphocyte Count 2.03 X10^3/uL (0.83-4.51); Absolute Neutrophil Count 8.3 X10^3/uL (2.0-7.7); Basophil# 0.04 X10^3/uL; Basophil% 0.3 % (0-1); Eosinophil# 0.23 X10^3/uL; Eosinophils% 1.9 % (0-5); Hematocrit 30.1 % (37-47); Hemoglobin 9.5 g/dL (12.0-15.0); Lymphocyte # 2.03 X10^3/ul (0.83-4.51); Lymphocyte % 17.2 % (19-41); Mean Corp Hgb Conc 31.6 g/dL (32-36); Mean Corpuscular Hgb 28.8 pg (27.0-32.0); Mean Corpuscular Volume 91.2 fL (81-99); Mean Platelet Vol. 10.6 fl (6.2-12.0); Monocyte# 1.18 X10^3/uL; NRBC Flagged by Analyzer 0 % (0-5); Neutrophil # 8.25 X10^3/uL (2.7-7.7); Neutrophil % 69.8 % (47-70); Platelet Count 357 K/mm3 (150-450); RBC Distribution Width CV 14.5 % (11.6-14.6); RBC Distribution Width SD 48.2 fl (35.1-43.9); White Blood Count 11.8 K/mm3 (4.4-11.0)
[2022-03-13 06:50] LABS: Anion Gap 6 (5-15); BUN 17 mg/dL (7-18); BUN/Creat Ratio 15.5 RATIO (10-20); Calcium,Total 8.3 mg/dL (8.5-10.1); Chloride 110 mmol/L (98-107); EST Glomerular Filtration Rate 51 mL/min (>60); Est Glom Filt Rate - Afr Amer 62 mL/min (>60); Estimated Creatinine Clearance 34.95 ml/min; Glucose 115 mg/dL (74-106); Magnesium 2.2 mg/dL (1.6-2.6); Phosphorus 3.7 mg/dL (2.5-4.9); Potassium 4.2 mmol/L (3.5-5.1); Sodium Level 140 mmol/L (136-145)
[2022-03-13 06:57] VITALS: PULSE 69; RESP 16; O2SAT 96
[2022-03-13] MEDS: Ipratropium/Albuterol Sulfate 3 ML AMPUL.NEB INHALATION (06:57)
[2022-03-13 08:44] VITALS: BP 153/52; PULSE 61; RESP 18; TEMP 36.6; O2SAT 95
[2022-03-13] MEDS: Spironolactone 25 MG Tablet PO (08:45)
[2022-03-13] MEDS: Clopidogrel Bisulfate 75 MG Tablet PO (08:45)
[2022-03-13] MEDS: APIXABAN 2.5 MG TABLET (WCH) PO (08:45)
[2022-03-13] MEDS: Aspirin 81 MG TAB.CHEW PO (08:45)
[2022-03-13] MEDS: Losartan Potassium 50 MG Tablet PO (08:45)
[2022-03-13] MEDS: amLODIPine 5 MG Tablet PO (08:46)
[2022-03-13] MEDS: Senna/Docusate Sodium 1 Tablet PO (08:46)
--- NOTE | 2022-03-13 10:23 | PN.CARD_ITS ---
Subjective Subjective Patient was seen and evaluated. Appears to be doing well. No cardiac complaints. No abdominal complaints. Objective Data Vital Signs: Vital Signs Temp Pulse Resp BP Pulse Ox O2 Del Method O2 Flow Rate 98.4 F 69 16 121/61 H 96 Room Air 2 03/13/22 03:29 03/13/22 06:57 03/13/22 06:57 03/13/22 03:29 03/13/22 06:57 03/13/22 06:57 03/12/22 19:19 Oxygen Flow Rate (L/min) 2 Oxygen Delivery Method Room Air Weight: 186 lb 15.232 oz Body Mass Index (BMI) 34.2 Lab / Micro Data Result Diagrams: 03/13/22 05:37 03/13/22 05:37 Labs: Laboratory Results - last 24 hr 03/13/22 00:25: Magnesium 2.2 03/13/22 05:37: WBC 11.8 H, RBC 3.30 L, Hgb 9.5 L, Hct 30.1 L, MCV 91.2, MCH 28.8, MCHC 31.6 L, RDW Std Deviation 48.2 H, RDW Coeff of Xochilt 14.5, Plt Count 357, MPV 10.6, Immature Gran % (Auto) 0.800, Neut % (Auto) 69.8, Lymph % (Auto) 17.2 L, [place] % (Auto) 10.0, Eos % (Auto) 1.9, Baso % (Auto) 0.3, Absolute Neuts (auto) 8.3 H, Absolute Lymphs (auto) 2.03, Nucleated RBC % 0 03/13/22 05:37: Sodium 140, Potassium 4.2, Chloride 110 H, Carbon Dioxide 24.0, Anion Gap 6, BUN 17, Creatinine 1.10 H, Estim Creat Clear Calc 34.95, Est GFR (MDRD) Af Amer 62, Est GFR (MDRD) Non-Af 51 L, BUN/Creatinine Ratio 15.5, Glucose 115 H, Calcium 8.3 L, Phosphorus 3.7, Magnesium 2.2 Cardiology Labs/Tests 03/13/22 00:25: Magnesium 2.2 03/13/22 05:37: WBC 11.8 H, RBC 3.30 L, Hgb 9.5 L, Hct 30.1 L, MCV 91.2, MCH 28.8, MCHC 31.6 L, Plt Count 357, MPV 10.6, Immature Gran % (Auto) 0.800, Neut % (Auto) 69.8, Lymph % (Auto) 17.2 L, [place] % (Auto) 10.0, Eos % (Auto) 1.9, Baso % (Auto) 0.3, Absolute Neuts (auto) 8.3 H, Nucleated RBC % 0 03/13/22 05:37: Sodium 140, Potassium 4.2, Chloride 110 H, Carbon Dioxide 24.0, Anion Gap 6, BUN 17, Creatinine 1.10 H, Est GFR (MDRD) Af Amer 62, Est GFR (MDRD) Non-Af 51 L, BUN/Creatinine Ratio 15.5, Glucose 115 H, Calcium 8.3 L, Phosphorus 3.7, Magnesium 2.2 Rhythm: EKG: ECHO: Stress Test: Cardiac Cath: PCI: CT Surgery: Holter monitor: EPS: PPM: CXR: Chest CT Scan: Radiography Diagnostic Testing: Radiology Impression Echocardiogram 03/12/22 15:33 Interpretation Summary Normal LV size. Moderate concentric left ventricular hypertrophy. Left ventricular systolic function is normal. The estimated ejection fraction is 55 %. The left atrium is mildly enlarged. Mean aortic valve gradient 47 mmHg. Mild (1+) aortic valve insufficiency. Peak aortic valve gradient 88 mmHg. Severe aortic stenosis. Ordering Physician: Ham Hobson Performed By: Jeff Parikh RCS Physical Exam Const alert, oriented x3 and no apparent distress HEENT normocephalic, head/scalp atraumatic, hearing grossly normal bilaterally and moist oral mucous membranes Mouth: oral and palatal mucosa normal Eyes PERRL, EOMs intact bilaterally and conjunctivae normal Resp normal respiratory effort, no retractions, no use of accessory muscles and clear to auscultation bilaterally Cardio regular rate, regular rhythm, S1 normal heart sound and S2 normal heart sound Heart Sounds: murmur systolic III/ loud early GI normal to inspection, nondistended, normoactive bowel sounds, soft to palpation and non-tender Extremity normal to inspection, full ROM and no clubbing, cyanosis or edema Neuro oriented x3, CN's II-XII intact bilaterally, moves all extremities and no focal motor deficits Sensorium / Orientation: awake and alert Motor Exam: strength 5/5 throughout Psych affect normal Assessment & Plan Assessment/Plan (1) NSTEMI, initial episode of care: PLAN: Patient presents with abdominal discomfort and has mild troponin elevation. Though she has EKG changes I suspect that these are evolutionary changes from her previous procedures. She does have residual disease noted in the circumflex artery and right coronary artery but with her recent complication the recommendation will be to continue with medical care. A repeat echocardiogram demonstrated preserved left ventricular systolic function with suggest that her ejection fraction has recovered. (2) Paroxysmal A-fib: PLAN: She does have evidence of paroxysmal atrial fibrillation. The plan to be to continue with anticoagulation with Eliquis 2.5 mg twice a day Controlled ventricular response rate with beta-stewart. (3) Severe aortic stenosis: PLAN: She does have severe aortic stenosis. At some point I guess that she would need to have her aortic valve replaced. The timing of this will depend on her clinical progress as well as the plans outlined in [place]. This is not entirely clear at this time. (4) Stroke/cerebrovascular accident: PLAN: She recently had what appears to be a postprocedure cerebrovascular accident. She will be on triple therapy for a month and then her aspirin discontinued and then she will continue with Eliquis and clopidogrel. (5) Hypertension: PLAN: Her blood pressure appears to be under fair control we will continue with current aggressive risk factor modification. * Her blood pressure will need to be better controlled. (6) Hyperlipidemia: PLAN: She does have a history of hyperlipidemia and will continue with a ggressive risk factor modification. Will recommend transfer back to the rehab unit and further recommendations will be made after she had discharge. Thank you for allowing me to participate in the care of your patient. Please don't hesitate to call if any issues arise.
--- NOTE | 2022-03-13 12:34 | DS.PCM_ITS ---
Providers Date of Admission: 03/12/22 Date of Discharge: 03/13/22 Primary Care Physician: Briana Primary Care Phys Consultations 03/12/22 02:30 Consult: Cardiology Routine Consulting Provider: Dorota Shah Reason for Consult: nonstemi EMERGENT Consult: No MD Notified: Yes Date Notified: 03/12/22 Time Notified: 02:30 Method of Notification: Text Reason For Visit: ABDOMINAL PAIN,ELEVATED TROPONIN Diagnosis Discharge Diagnosis (1) NSTEMI, initial episode of care: Status: Acute Code(s): I21.4 - Non-ST elevation (NSTEMI) myocardial infarction (2) Paroxysmal A-fib: Status: Acute Code(s): I48.0 - Paroxysmal atrial fibrillation (3) Severe aortic stenosis: Status: Acute Code(s): I35.0 - Nonrheumatic aortic (valve) stenosis (4) Stroke/cerebrovascular accident: Status: Acute Code(s): I63.9 - Cerebral infarction, unspecified (5) Hypertension: Status: Chronic Code(s): I10 - Essential (primary) hypertension (6) Hyperlipidemia: Status: Acute Code(s): E78.5 - Hyperlipidemia, unspecified Plan Patient is a 76-year-old lady with recent acute ischemic stroke complicated by right-sided weakness who was transferred from the inpatient rehab unit to the ED with chest discomfort. Was found to have elevated troponin consistent with acute non-STEMI admitted to monitored bed with consultation placed to cardiology 1. Acute non-STEMI ? Patient had apparently undergone left heart catheterization at [place] on 03/03/2022 on account of non-STEMI. She was found to have 90% stenosis in the proximal LAD and 80% stenosis in the proximal RCA and 70% stenosis of mid RCA. Patient underwent PCI with ALLEN. Discharged on aspirin Plavix as well as statin therapy. Case discussed with Dr. Mckeon patient will undergo 2D echo prior to any further decision be made ?03/13/2021; patient underwent 2D echo results are as below Normal LV size. Moderate concentric left ventricular hypertrophy. Left ventricular systolic function is normal. The estimated ejection fraction is 55 %. The left atrium is mildly enlarged. Mean aortic valve gradient 47 mmHg. Mild (1+) aortic valve insufficiency. Peak aortic valve gradient 88 mmHg. Severe aortic stenosis. -Case was discussed with Dr. Mckeon with cardiology who felt patient could be discharged back to the inpatient rehab unit 2. Acute recent CVA ? Patient was being managed in the inpatient rehab unit prior to transfer to the ED and subsequently admission 3. Paroxysmal A. fib ? Patient presented in sinus rhythm. Patient is on Eliquis continued 4. Valvular heart disease ? Recent echo obtained demonstrated EF of 60% with severe aortic valve stenosis 5. Coronary artery disease ? With recent intervention of multiple lesions discussed above 6. Hypertension - Blood pressure controlled, home medications continued with dose adjustment as needed 7. Dyslipidemia -Patient is on statin therapy, continued at home dose 8. Class I obesity with BMI of 34.2 ? Weight loss advised 9. DVT prophylaxis ? On Eliquis Time spent in the patient's overall evaluation,decision-making process, review of diagnostic data, adjustment of management, discussion with other providers, nursing nursing and ancillary staff involved in patient's care documentation, 40 Minutes Medications at Discharge Home Medications apixaban 2.5 mg tablet (Eliquis) 2.5 mg PO BID blood thinner 03/10/22 aspirin 81 mg chewable tablet 81 mg PO DAILY heart 03/10/22 atorvastatin 40 mg tablet (Lipitor) 40 mg PO QHS cholesterol 03/10/22 clopidogrel 75 mg tablet (Plavix) 75 mg PO DAILY blood thinner 03/10/22 ipratropium 0.5 mg-albuterol 3 mg (2.5 mg base)/3 mL nebulization soln 3 ml inhalation 4XD sob or wheezing 03/10/22 sennosides 8.6 mg-docusate sodium 50 mg tablet (Senna with Docusate Sodium) 1 tab-cap PO BID stool softener 03/10/22 amlodipine 5 mg tablet (Norvasc) 5 mg PO DAILY blood pressure 03/11/22 losartan 50 mg tablet 50 mg PO DAILY blood pressure 03/11/22 spironolactone 25 mg tablet (Aldactone) 25 mg PO DAILY blood pressure 03/11/22 Hospital Course Summary of Care Provided Minutes Spent on Discharge: 40 Physical Exam Narrative GENERAL: cooperative HEENT: Atraumatic; normocephalic EYES; Anicteric, Normal Conjunctiva NECK; supple, normal thyroid, RESPIRATORY: Diminished to auscultation CARDIOVASCULAR: Regular S1 S2, GI: soft, normoactive bowel sounds, : No Renal angle tenderness; EXTREMITIES: No edema, no clubbing, MUSCULOSKELETAL: no muscle wasting NEURO: Awake; right upper extremity weakness SKIN: No Rash PSYCH; Flat affect Weight / BMI Weight Weight: 84.8 kg Body Mass Index (BMI) 34.2 ABG / Lab / Microbiology Data Result Diagrams: 03/13/22 05:37 03/13/22 05:37 Laboratory: Laboratory Results - last 24 hr 03/13/22 00:25: Magnesium 2.2 03/13/22 05:37: WBC 11.8 H, RBC 3.30 L, Hgb 9.5 L, Hct 30.1 L, MCV 91.2, MCH 28.8, MCHC 31.6 L, RDW Std Deviation 48.2 H, RDW Coeff of Xochilt 14.5, Plt Count 357, MPV 10.6, Immature Gran % (Auto) 0.800, Neut % (Auto) 69.8, Lymph % (Auto) 17.2 L, [place] % (Auto) 10.0, Eos % (Auto) 1.9, Baso % (Auto) 0.3, Absolute Neuts (auto) 8.3 H, Absolute Lymphs (auto) 2.03, Nucleated RBC % 0 03/13/22 05:37: Sodium 140, Potassium 4.2, Chloride 110 H, Carbon Dioxide 24.0, Anion Gap 6, BUN 17, Creatinine 1.10 H, Estim Creat Clear Calc 34.95, Est GFR (MDRD) Af Amer 62, Est GFR (MDRD) Non-Af 51 L, BUN/Creatinine Ratio 15.5, Glucose 115 H, Calcium 8.3 L, Phosphorus 3.7, Magnesium 2.2 Radiography Diagnostic Testing: Radiology Impression Echocardiogram 03/12/22 15:33 Interpretation Summary Normal LV size. Moderate concentric left ventricular hypertrophy. Left ventricular systolic function is normal. The estimated ejection fraction is 55 %. The left atrium is mildly enlarged. Mean aortic valve gradient 47 mmHg. Mild (1+) aortic valve insufficiency. Peak aortic valve gradient 88 mmHg. Severe aortic stenosis. Ordering Physician: Ham Hobson Performed By: Jeff Parikh RCS D/C Instructions Discharge Diet: Low fat / Low cholesterol Meaningful Use Info Meaningful Use Diagnoses (Choose all that apply): AMI AMI/Post PCI/Angioplasty Aspirin given w/in 24hrs of arrival?: Yes ASA at discharge?: Yes Antiplatelet Therapy at Discharge:: Yes Statins at discharge?: Yes [place]/ARB at discharge?: Yes Beta Christiano at discharge?: Yes Done w/ Acute TN measure.: Yes Documented LVEF (%): 55 Discharge Plan Admission Admit Date/Time: 03/12/22 08:33 Attending Provider: Ham Hobson Primary Care Provider: Care Physician,No Primary Consulting Providers: Meredith Ocampo ; Dorota Shah Discharge Orders/Prescriptions Prescriptions: Continued atorvastatin [Lipitor] 40 mg Tablet 40 mg PO QHS ipratropium-albuterol 0.5 mg-3 mg(2.5 mg base)/3 mL Solution For Nebulization 3 ml inhalation 4XD sennosides-docusate sodium [Senna with Docusate Sodium] 8.6-50 mg Tablet 1 tab-cap PO BID clopidogrel [Plavix] 75 mg Tablet 75 mg PO DAILY aspirin 81 mg Tablet,Chewable 81 mg PO DAILY Eliquis 2.5 mg Tablet 2.5 mg PO BID losartan 50 mg Tablet 50 mg PO DAILY amlodipine [Norvasc] 5 mg Tablet 5 mg PO DAILY spironolactone [Aldactone] 25 mg Tablet 25 mg PO DAILY Referrals / Follow Up: Care Physician,No Primary [Primary Care Provider] - Disposition Disposition (needs filled in before D/C Order can be placed): Inpatient Rehab Unit/Facility Charges/Coding Visit Charges Inpatient E&M: 04115 Disch Hosp >30min
--- NOTE | 2022-03-13 12:41 | PCM.PN.HOSP ---
Subjective Subjective Follow-up acute non-STEMI Patient seen chest pain resolved. Underwent 2D echo results are as below Objective Data Objective Data Vital Signs: Vital Signs Temp Pulse Resp BP Pulse Ox O2 Del Method O2 Flow Rate 97.8 F 61 18 153/52 H 95 Room Air 2 03/13/22 08:44 03/13/22 08:44 03/13/22 08:44 03/13/22 08:44 03/13/22 08:44 03/13/22 08:45 03/12/22 19:19 Oxygen Flow Rate (L/min) 2 Oxygen Delivery Method Room Air Weight: 84.8 kg Body Mass Index (BMI) 34.2 Lab / Micro Data Result Diagrams: 03/13/22 05:37 03/13/22 05:37 Labs: Laboratory Results - last 24 hr 03/13/22 00:25: Magnesium 2.2 03/13/22 05:37: WBC 11.8 H, RBC 3.30 L, Hgb 9.5 L, Hct 30.1 L, MCV 91.2, MCH 28.8, MCHC 31.6 L, RDW Std Deviation 48.2 H, RDW Coeff of Xochilt 14.5, Plt Count 357, MPV 10.6, Immature Gran % (Auto) 0.800, Neut % (Auto) 69.8, Lymph % (Auto) 17.2 L, [place] % (Auto) 10.0, Eos % (Auto) 1.9, Baso % (Auto) 0.3, Absolute Neuts (auto) 8.3 H, Absolute Lymphs (auto) 2.03, Nucleated RBC % 0 03/13/22 05:37: Sodium 140, Potassium 4.2, Chloride 110 H, Carbon Dioxide 24.0, Anion Gap 6, BUN 17, Creatinine 1.10 H, Estim Creat Clear Calc 34.95, Est GFR (MDRD) Af Amer 62, Est GFR (MDRD) Non-Af 51 L, BUN/Creatinine Ratio 15.5, Glucose 115 H, Calcium 8.3 L, Phosphorus 3.7, Magnesium 2.2 Radiography Diagnostic Testing: Radiology Impression Echocardiogram 03/12/22 15:33 Interpretation Summary Normal LV size. Moderate concentric left ventricular hypertrophy. Left ventricular systolic function is normal. The estimated ejection fraction is 55 %. The left atrium is mildly enlarged. Mean aortic valve gradient 47 mmHg. Mild (1+) aortic valve insufficiency. Peak aortic valve gradient 88 mmHg. Severe aortic stenosis. Ordering Physician: Ham Hobson Performed By: Jeff Parikh RCS Physical Exam Narrative GENERAL: cooperative HEENT: Atraumatic; normocephalic EYES; Anicteric, Normal Conjunctiva NECK; supple, normal thyroid, RESPIRATORY: Diminished to auscultation CARDIOVASCULAR: Regular S1 S2, GI: soft, normoactive bowel sounds, : No Renal angle tenderness; EXTREMITIES: No edema, no clubbing, MUSCULOSKELETAL: no muscle wasting NEURO: Awake; right upper extremity weakness SKIN: No Rash PSYCH; Flat affect Assessment & Plan Assessment/Plan (1) NSTEMI, initial episode of care: (2) Paroxysmal A-fib: (3) Severe aortic stenosis: (4) Stroke/cerebrovascular accident: (5) Hypertension: (6) Hyperlipidemia: PLAN: Plan Patient is a 76-year-old lady with recent acute ischemic stroke complicated by right-sided weakness who was transferred from the inpatient rehab unit to the ED with chest discomfort. Was found to have elevated troponin consistent with acute non-STEMI admitted to monitored bed with consultation placed to cardiology 1. Acute non-STEMI ? Patient had apparently undergone left heart catheterization at [place] on 03/03/2022 on account of non-STEMI. She was found to have 90% stenosis in the proximal LAD and 80% stenosis in the proximal RCA and 70% stenosis of mid RCA. Patient underwent PCI with ALLEN. Discharged on aspirin Plavix as well as statin therapy. Case discussed with Dr. Mckeon patient will undergo 2D echo prior to any further decision be made ?03/13/2021; patient underwent 2D echo results are as below Normal LV size. Moderate concentric left ventricular hypertrophy. Left ventricular systolic function is normal. The estimated ejection fraction is 55 %. The left atrium is mildly enlarged. Mean aortic valve gradient 47 mmHg. Mild (1+) aortic valve insufficiency. Peak aortic valve gradient 88 mmHg. Severe aortic stenosis. -Case was discussed with Dr. Mckeon with cardiology who felt patient could be discharged back to the inpatient rehab unit 2. Acute recent CVA ? Patient was being managed in the inpatient rehab unit prior to transfer to the ED and subsequently admission 3. Paroxysmal A. fib ? Patient presented in sinus rhythm. Patient is on Eliquis continued 4. Valvular heart disease ? Recent echo obtained demonstrated EF of 60% with severe aortic valve stenosis 5. Coronary artery disease ? With recent intervention of multiple lesions discussed above 6. Hypertension - Blood pressure controlled, home medications continued with dose adjustment as needed 7. Dyslipidemia -Patient is on statin therapy, continued at home dose 8. Class I obesity with BMI of 34.2 ? Weight loss advised 9. DVT prophylaxis ? On Eliquis Time spent in the patient's overall evaluation,decision-making process, review of diagnostic data, adjustment of management, discussion with other providers, nursing nursing and ancillary staff involved in patient's care documentation, 40 Minutes Charges/Coding Visit Charges Inpatient E&M: 05890 Subs Hosp L2
[2022-03-13 14:31] VITALS: BP 150/45; PULSE 65; RESP 18; TEMP 36.9; O2SAT 97
[2022-03-13 14:37] VITALS: O2SAT 97
--- NOTE | 2022-03-13 14:55 | NURSING ---
Report called to Inpatient Rehab, ELLEN Herrera. Patient ready for discharge.
== END 2022-03-13 16:42 ==
PROVIDERS: Admitting Provider Student in an Organized Health Care Education/Training Program; Visit Provider Internal Medicine
DX: I21.4 Non-ST elevation (NSTEMI) myocardial infarction (principal); I69.351 Hemiplegia and hemiparesis following cerebral infarction affecting right dominant side; J44.9 Chronic obstructive pulmonary disease, unspecified; I11.0 Hypertensive heart disease with heart failure; I50.33 Acute on chronic diastolic (congestive) heart failure; I48.0 Paroxysmal atrial fibrillation; Z68.34 Body mass index [BMI] 34.0-34.9, adult; E66.9 Obesity, unspecified; E78.5 Hyperlipidemia, unspecified; Z87.891 Personal history of nicotine dependence; I25.10 Atherosclerotic heart disease of native coronary artery without angina pectoris; Z79.01 Long term (current) use of anticoagulants; Z79.02 Long term (current) use of antithrombotics/antiplatelets; Z79.899 Other long term (current) drug therapy; Z79.82 Long term (current) use of aspirin; K21.9 Gastro-esophageal reflux disease without esophagitis; I69.320 Aphasia following cerebral infarction; I69.322 Dysarthria following cerebral infarction; I35.0 Nonrheumatic aortic (valve) stenosis; Z23 Encounter for immunization
CPT/HCPCS: 36415; 80048; 83735; 84100; 84484; 85025; 93306; 94640; 96374; 97110; 97162; 97166; 97530; 97802; 99221; 90686; A4216; G0378; J2405

== ENCOUNTER 2022-04-03 20:30 | Inpatient (IN) | payer MEDICARE, SELFPAY ==
[2022-04-03 20:34] VITALS: BP 173/77; PULSE 57; TEMP 36.3; O2SAT 100; BMI 33.0
--- NOTE | 2022-04-03 22:04 | HP.PCM_ITS ---
HPI - General General Date of Admission: 04/03/22 Date of Service: 04/05/22 Chief Complaint: Here for rehabilitation. HPI Narrative VIRGINIE ARTEAGA, is a 76 Female who presents with followin03/03/2022 [facility]; New onset atrial fibrillation with rapid ventricular response. STEMI status post LAD stent. Left MCA stroke with left ICA occlusion immediately after cardiac catheterization. 03/04/2022 [facility]; Failed left ICA thrombectomy x 2. 03/06/2022 MRI showed left KASEY, left MCA stroke. 03/12/2022 Admit to [facility]. 03/16/2022 Chest pain, transfer to [facility]. 03/17/2022 [facility]; NSTEMI status post RCA stenting. 03/23/2022 [facility]; Evaluate for left ICA occlusion bypass. Dual antiplatelet therapy, but hold anticoagulation. Control blood pressure. 03/25/2022 Left ICA angioplasty, stent. 03/26/2022 Groin ultrasound to evaluate pseudoaneurysm. 04/03/2022 Admit to TCU with debility, here for rehabilitation, strengthening, prior to discharge home with family. [facility] Medical History Congestive heart failure (CHF) Coronary artery disease GERD (gastroesophageal reflux disease) Hypertension NSTEMI, initial episode of care Severe aortic stenosis Sleep apnea Stroke/cerebrovascular accident Tobacco dependence Home Medications apixaban 2.5 mg tablet (Eliquis) 2.5 mg PO BID blood thinner 03/10/22 [History Last Taken Unknown] aspirin 81 mg chewable tablet 81 mg PO DAILY heart 03/10/22 [History Last Taken Unknown] atorvastatin 40 mg tablet (Lipitor) 40 mg PO QHS cholesterol 03/10/22 [History Last Taken Unknown] clopidogrel 75 mg tablet (Plavix) 75 mg PO DAILY blood thinner 03/10/22 [History Last Taken Unknown] ipratropium 0.5 mg-albuterol 3 mg (2.5 mg base)/3 mL nebulization soln 3 ml inhalation 4XD sob or wheezing 03/10/22 [History Last Taken Unknown] sennosides 8.6 mg-docusate sodium 50 mg tablet (Senna with Docusate Sodium) 1 tab-cap PO BID stool softener 03/10/22 [History Last Taken Unknown] amlodipine 5 mg tablet (Norvasc) 5 mg PO DAILY blood pressure 03/11/22 [History Last Taken Unknown] losartan 50 mg tablet 50 mg PO DAILY blood pressure 03/11/22 [History Last Taken Unknown] spironolactone 25 mg tablet (Aldactone) 25 mg PO DAILY blood pressure 03/11/22 [History Last Taken Unknown] Allergy/AdvReac Type Severity Reaction Status Date / Time MARK Inhibitors Allergy Unknown Other Verified 04/04/22 00:27 Family History Father , of an MD CAD (coronary artery disease) Brother , from an MD CAD (coronary artery disease) Diabetes Sister Alcoholism Mother , of old age No problems noted. Surgical History (Updated 04/03/22 @ 22:[address] Bubba Yip MD) History of appendectomy History of cholecystectomy History of total abdominal hysterectomy and bilateral salpingo-oophorectomy Social History household members: family and other details: She lives with her son Jermaine and her brother Marbin in [place]. housing: house number of children: 4 current occupational status: retired Smoking Status: Former smoker quit date: 02/24/22 pack-years: 40 Tobacco: How many years used: 40 counseling given: counseling >3 minutes alcohol intake: never substance use type: does not use ROS Constitutional Constitutional: Denies chills, fever(s) or weight gain ENT HEENT: Denies headache(s), nasal congestion or nasal discharge Cardiovascular Cardiovascular: Denies chest pain or palpitations Respiratory/Chest Respiratory/Chest: Denies cough, excessive phlegm production or shortness of breath with exertion Gastrointestinal Gastrointestinal: Denies abdominal pain, nausea or vomiting Genitourinary Genitourinary: Denies dysuria Musculoskeletal Musculoskeletal: Denies joint pain or joint swelling Integumentary Integumentary: Denies rash or wounds Neurologic Neurologic: Denies focal weakness, numbness or tingling Psychiatric Psychiatric: Denies anxiety, auditory hallucinations, depression, homicidal ideation or suicidal ideation Vital Signs Vital Signs Vital Signs: 04/03/22 20:34 Temperature 97.4 F L Temperature Source Temporal Pulse Rate 57 L Blood Pressure 173/77 H Blood Pressure Mean 109 Blood Pressure Source Monitor Blood Pressure Position Supine Blood Pressure Location Right Arm Pulse Ox 100 Oxygen Delivery Method Room Air Physical Exam Const alert General Appearance: cooperative HEENT normocephalic Eyes PERRL and EOMs intact bilaterally Neck supple, no JVD and no carotid bruits Resp normal respiratory effort, normal air movement and clear to auscultation bilaterally Cardio regular rate and regular rhythm GI normal to inspection, nondistended, normoactive bowel sounds, non-tender and non-distended Extremity normal capillary refill General Extremity: Negative for edema Skin no rashes or lesions noted General Skin Exam: no breakdown Psych affect normal Appearance: appropriate Results Lab / Micro Data Result Diagrams: 04/04/22 06:53 04/04/22 06:53 Assessment & Plan Assessment/Plan (1) Debility: (2) Left carotid artery occlusion: (3) History of left common carotid artery stent placement: (4) Left acute arterial ischemic stroke, MCA (middle cerebral artery): (5) Acute left KASEY ischemic stroke: (6) STEMI (ST elevation myocardial infarction): (7) NSTEMI (non-ST elevated myocardial infarction): (8) Atrial fibrillation with rapid ventricular response: (9) History of placement of stent in LAD coronary artery: (10) History of right coronary artery stent placement: (11) Coronary artery disease: (12) Hypertension: (13) Hyperlipidemia, unspecified: (14) Acute on chronic diastolic (congestive) heart failure: (15) Chronic obstructive pulmonary disease: (16) Aortic stenosis: PLAN: Plan 76 year old female with below past medical history of recent atrial fibrillation with rapid ventricular response, STEMI s/p LAD stent, NSTEMI s/p RCA stent, hospitalized for left ICA occlusion, underwent angioplasty/stent, complicated by left KASEY/MCA stroke, admitted to TCU with debility, here for rehabilitation, strengthening, prior to discharge home with family. * Debility - PT/OT. * Cognition/dysphagia - ST. * Pain - Tylenol 1000mg q6 prn pain (1-10). * Bowel - Miralax 17gm daily, senna/colace 1 tablet bid, Dulcolax 10mg pr x 1 prn, MOM 30ml po x 1 prn. * Adult immunization - Administer pneumonia vaccine, covid19 vaccine, flu vac cine as appropriate. * DVT prophylaxis - Hold, on dual antiplatelet therapy. * COPD - Albuterol 2.5mg q4h prn. * Hypertension - Coreg 12.5mg bidcm, Losartan 100mg daily, Amlodipine 10mg daily. * Left KASEY/MCA stroke - Plavix 75mg daily, Aspirin 81mg daily. * Hyperlipidemia - Atorvastatin 80mg qhs. * Coronary artery disease s/p stent x 2 - Coreg 12.5mg bidcm, Losartan 100mg daily, Plavix 75mg daily, Aspirin 81mg daily. * GERD - Famotidine 20mg daily. * Chronic diastolic congestive heart failure - Coreg 12.5mg bidcm, Losartan 100mg daily, Aldactone 12.5mg daily. * Left carotid artery occlusion s/p angioplasty/stent - Plavix 75mg daily, Aspirin 81mg daily. * Atrial fibrillation - Coreg 12.5mg bidcm, Aspirin 81mg daily, review hospital records to see if anticoagulation warranted.
--- NOTE | 2022-04-03 22:38 | NURSING ---
Pt refuses a pneumonia vaccine. Unsure when she last saw a provider prior to hospitalization. [place] 4 [place] ago. Son lives in [place]. Brother lives in [place] and assists pt as needed.
[2022-04-03] MEDS: Atorvastatin Calcium 80 MG Tablet PO (22:50)
[2022-04-03] MEDS: Acetaminophen 500 MG Tablet 1000 MG PO (22:56)
[2022-04-04] MEDS: Polyethylene Glycol 3350 17 GM PACKET PO (05:56)
[2022-04-04] MEDS: Senna/Docusate Sodium 1 Tablet PO (05:57)
[2022-04-04] MEDS: Clopidogrel Bisulfate 75 MG Tablet PO (05:57)
[2022-04-04] MEDS: Famotidine 20 MG Tablet PO (05:57)
[2022-04-04] MEDS: amLODIPine 10 MG Tablet PO (06:00)
[2022-04-04] MEDS: Losartan Potassium 100 MG Tablet PO (06:00)
[2022-04-04] MEDS: Spironolactone 25 MG Tablet 12.5 MG PO (06:01)
[2022-04-04] MEDS: 0.9% Saline Lock 10 ML Syringe IV (06:03)
[2022-04-04 06:27] VITALS: BP 163/58; PULSE 93
[2022-04-04 07:32] LABS: Absolute Lymphocyte Count 1.58 X10^3/uL (0.83-4.51); Absolute Neutrophil Count 4.4 X10^3/uL (2.0-7.7); Basophil# 0.04 X10^3/uL; Basophil% 0.6 % (0-1); Eosinophils% 2.8 % (0-5); Hematocrit 31.3 % (37-47); Hemoglobin 9.3 g/dL (12.0-15.0); Lymphocyte # 1.58 X10^3/ul (0.83-4.51); Lymphocyte % 22.3 % (19-41); Mean Corp Hgb Conc 29.7 g/dL (32-36); Mean Corpuscular Hgb 28.8 pg (27.0-32.0); Mean Corpuscular Volume 96.9 fL (81-99); Mean Platelet Vol. 10.1 fl (6.2-12.0); Monocyte# 0.83 X10^3/uL; Monocyte% 11.7 % (0-10); NRBC Flagged by Analyzer 0 % (0-5); Neutrophil # 4.36 X10^3/uL (2.7-7.7); Neutrophil % 61.6 % (47-70); Platelet Count 356 K/mm3 (150-450); RBC Distribution Width CV 14.9 % (11.6-14.6); RBC Distribution Width SD 52.7 fl (35.1-43.9); Red Blood Count 3.23 M/mm3 (4.2-5.4); White Blood Count 7.1 K/mm3 (4.4-11.0)
[2022-04-04 07:46] VITALS: O2SAT 98
[2022-04-04 07:53] LABS: Anion Gap 7 (5-15); BUN 14 mg/dL (7-18); BUN/Creat Ratio 14.7 RATIO (10-20); Calcium,Total 8.6 mg/dL (8.5-10.1); Chloride 106 mmol/L (98-107); Creatinine, Serum 0.95 mg/dL (0.55-1.02); EST Glomerular Filtration Rate 61 mL/min (>60); Est Glom Filt Rate - Afr Amer 74 mL/min (>60); Estimated Creatinine Clearance 40.47 ml/min; Glucose 120 mg/dL (74-106); Sodium Level 140 mmol/L (136-145)
[2022-04-04] MEDS: Aspirin 81 MG TAB.CHEW PO (08:53)
[2022-04-04] MEDS: Carvedilol 12.5 MG Tablet PO ×2 (08:53→17:00)
[2022-04-04 10:45] VITALS: RESP 16; O2SAT 98
[2022-04-04] MEDS: Tuberculin,Purif.prot.deriv. 50 TU/ML Vial 0.1 ML ID (11:40)
[2022-04-04 14:00] VITALS: BP 146/69; PULSE 71; RESP 14; TEMP 36.1; O2SAT 93
[2022-04-04] MEDS: Arthritis Pain Compound 60 CLICK TUBE TOPICAL (17:01)
--- NOTE | 2022-04-04 21:15 | NURSING ---
Paged Dr. Yip w/ immediate return call. Requested PICC line be dc'ed as red port is flushing poorly and IV is not being utilized. Telephone order received and read back to dc PICC line.
[2022-04-04] MEDS: Atorvastatin Calcium 80 MG Tablet PO (21:47)
[2022-04-04] MEDS: Menthol/Lanolin/Calamine/Znox 113 GM Tube 1 APPLIC TOPICAL (21:47)
[2022-04-05 04:41] VITALS: BP 127/52; PULSE 55; RESP 16; O2SAT 99
--- NOTE | 2022-04-05 04:44 | EKG12_ITS ---
Test Reason : CP Blood Pressure : / mmHG Vent. Rate : 057 BPM Atrial Rate : 057 BPM P-R Int : 148 ms QRS Dur : 096 ms QT Int : 426 ms P-R-T Axes : 082 -35 114 degrees QTc Int : 414 ms Sinus bradycardia Left axis deviation Septal infarct , age undetermined ST & T wave abnormality, consider lateral ischemia Abnormal ECG When compared with ECG of 16-MAR-2022 11:57, T wave inversion no longer evident in Inferior leads Confirmed by LOURDES OTTO, EMRE ([id number]), supervising editor news reel CELSO PHIPPS ([id number]) on 04/06/2022 9:04:35 AM Referred By: CECILIO Confirmed By:EMRE FREED MD
[2022-04-05] MEDS: Polyethylene Glycol 3350 17 GM PACKET PO (04:50)
[2022-04-05] MEDS: Acetaminophen 500 MG Tablet 1000 MG PO ×2 (04:51→20:12)
[2022-04-05] MEDS: Famotidine 20 MG Tablet PO (04:52)
[2022-04-05] MEDS: amLODIPine 10 MG Tablet PO (04:52)
[2022-04-05] MEDS: Losartan Potassium 100 MG Tablet PO (04:52)
[2022-04-05] MEDS: Clopidogrel Bisulfate 75 MG Tablet PO (04:52)
[2022-04-05] MEDS: Spironolactone 25 MG Tablet 12.5 MG PO (04:53)
[2022-04-05] MEDS: Arthritis Pain Compound 60 CLICK TUBE TOPICAL ×2 (04:55→17:03)
--- NOTE | 2022-04-05 04:59 | NURSING ---
Pt calls c/o chest pain. Sitting on the side of the bed with left leg dangling and right leg in bed. Vitals obtained and recorded. O2 in place via nc at 2 lpm. Initially points to right side of chest under breast, then notes pain is midsternal. Unable to rate pain when asked more than once. Initially states the painhurts. When attempting to question various characteristics of pain, pt answers yes to pressure. Asked pt if she has experienced this type of pain before and answers yes. Denies a burning sensation. Also notes pain to the right arm. Initially points to the right forearm, then to the upper arm. Denies any back, jaw, or left arm pain. Denies any n/v. Denies any shortness of breath. Respirations even and slightly labored. Skin pink/pale, warm, and dry. In mild distress. Given am meds and Tylenol. Call light w/ in reach. Respiratory contacted to perform EKG. Will continue to monitor.
--- NOTE | 2022-04-05 05:17 | NURSING ---
Pt lying on left side in bed. O2 at 2 lpm via nc. Respirations even and unlabored. Questioned pt on status of pain. Initially states the pain is better. Questioned pt if the pain has resolved and verbalizes yes. In no acute distress. Respiratory arrived to unit to perform EKG.
--- NOTE | 2022-04-05 06:33 | NURSING ---
Addendum entered by Gi Morrissey 04/05/22 07:42: Pt educated on the importance of wearing O2 to prevent recurrent episodes of chest pain. Unsure if pt able to comprehend the importance of O2 therapy. Will need continued education. Original Note: Pt resting in bed w/ eyes closed laying on rt side. O2 off. COVID swab completed. Questioned pt if she remains chest pain pain and states yes. Respirations even and unlabored. Will continue to monitor.
[2022-04-05] MEDS: Nystatin Powder 15gm Bottle 1 APPLIC TOPICAL ×2 (08:37→17:03)
[2022-04-05] MEDS: Carvedilol 12.5 MG Tablet PO ×2 (08:38→17:03)
[2022-04-05] MEDS: Aspirin 81 MG TAB.CHEW PO (08:38)
[2022-04-05] MEDS: Menthol/Lanolin/Calamine/Znox 113 GM Tube 1 APPLIC TOPICAL ×2 (08:38→20:09)
--- NOTE | 2022-04-05 09:30 | PCM.PN.DRR ---
TCU RX Drug Regimen Review Subjective: TCU Admission. 76 YOF with recent atrial fibrillation with rapid ventricular response, STEMI s/p LAD stent, NSTEMI s/p RCA stent, hospitalized for left ICA occlusion, underwent angioplasty/stent, complicated by left KASEY/MCA stroke. Admitted to TCU with debility for strengthening and rehabilitation. Objective: Allergies MARK Inhibitors Allergy (Unknown, Verified 04/04/22 00:27) Other reaction unknown- pt is a poor historian Current Medications Generic Name Dose Route Start Last Admin Trade Name Freq PRN Reason Stop Dose Admin Acetaminophen 1,000 mg 04/03/22 22:32 04/05/22 04:51 Acetaminophen 500 Mg Tablet PO 1,000 mg Q6H PRN PRN Administration Pain Score 1-10 Albuterol Sulfate 2.5 mg 04/03/22 21:29 Albuterol 2.5 Mg/3 Ml Vial.Neb. INHALATION Q4H PRN PRN SHORTNESS OF BREATH Amlodipine Besylate 10 mg 04/04/22 06:00 04/05/22 04:52 Amlodipine 10 Mg Tablet PO 10 mg DAILY LETICIA Administration Aspirin 81 mg 04/04/22 08:00 04/05/22 08:38 Aspirin 81 Mg Tab.Chew PO 81 mg DAILYCM LETICIA Administration Atorvastatin Calcium 80 mg 04/03/22 22:00 04/04/22 21:47 Atorvastatin Calcium 80 Mg Tablet PO 80 mg QHS LETICIA Administration Bisacodyl 10 mg 04/03/22 22:32 Bisacodyl 10 Mg Suppository RC X1 PRN Constipation Calamine/Phenol 1 applic 04/04/22 22:00 04/05/22 08:38 Menthol/Lanolin/Calamine/Znox 113 Gm Tube TOPICAL 1 applic 1000,2200 LETICIA Administration Protocol Carvedilol 12.5 mg 04/04/22 08:00 04/05/22 08:38 Carvedilol 12.5 Mg Tablet PO 12.5 mg BIDCM LETICIA Administration Clopidogrel Bisulfate 75 mg 04/04/22 06:00 04/05/22 04:52 Clopidogrel Bisulfate 75 Mg Tablet PO 75 mg DAILY LETICIA Administration Compound Med 2 click 04/04/22 18:00 04/05/22 04:55 Arthritis Pain Compound 60 Click Tube TOPICAL 2 click BID LETICIA Administration Protocol Famotidine 20 mg 04/04/22 06:00 04/05/22 04:52 Famotidine 20 Mg Tablet PO 20 mg DAILY LETICIA Administration Losartan Potassium 100 mg 04/04/22 06:00 04/05/22 04:52 Losartan Potassium 100 Mg Tablet PO 100 mg DAILY LETICIA Administration Magnesium Hydroxide 30 ml 04/03/22 22:32 Magnesium Hydroxide 30 Ml Udc PO X1 PRN Constipation Multi-Ingredient Cream 1 applic 04/04/22 21:20 Petrolatum 33% Tube TOPICAL BID PRN LETICIA Protocol Nutritional Formula (Lactose Free) 120 ml 04/05/22 07:45 04/05/22 08:38 Ensure Plus High Protein 120 Ml Liquid PO Not Given TIDCM LETICIA Nystatin 1 applic 04/05/22 06:00 04/05/22 08:37 Nystatin Powder 15gm Bottle TOPICAL 1 applic BID LETICIA Administration Polyethylene Glycol 17 gm 04/04/22 06:00 04/05/22 04:50 Polyethylene Glycol 3350 17 Gm Packet PO 17 gm DAILY LETICIA Administration Senna/Docusate Sodium 1 tablet 04/04/22 06:00 04/05/22 05:50 Senna/Docusate Sodium 1 Tablet PO Not Given BID LETICIA Spironolactone 12.5 mg 04/04/22 06:00 04/05/22 04:53 Spironolactone 25 Mg Tablet PO 12.5 mg DAILY LETICIA Administration Tuberculin PPD 0.1 ml 04/11/22 10:00 Tuberculin,Purif.Prot.Deriv. 50 Tu/Ml Vial ID 04/11/22 10:01 X1 ONE Problem List (Last Reviewed 04/03/22 @ 22:[address] Bubba Yip MD) Aortic stenosis (Acute) Chronic obstructive pulmonary disease (Chronic) Acute on chronic diastolic (congestive) heart failure (Chronic) Hyperlipidemia, unspecified (Acute) Hypertension (Chronic) Coronary artery disease (Acute) History of right coronary artery stent placement (Acute) History of placement of stent in LAD coronary artery (Acute) Atrial fibrillation with rapid ventricular response (Acute) NSTEMI (non-ST elevated myocardial infarction) (Acute) STEMI (ST elevation myocardial infarction) (Acute) Acute left KASEY ischemic stroke (Acute) Left acute arterial ischemic stroke, MCA (middle cerebral artery) (Acute) History of left common carotid artery stent placement (Acute) Left carotid artery occlusion (Acute) Debility (Acute) Vital Signs Temp Pulse Resp BP Pulse Ox O2 Del Method O2 Flow Rate 96.9 F L 55 L 16 127/52 H 99 Nasal Cannula 2 04/04/22 14:00 04/05/22 04:41 04/05/22 04:41 04/05/22 04:41 04/05/22 04:41 04/05/22 07:24 04/05/22 07:24 Oxygen Flow Rate (L/min) 2 Oxygen Delivery Method Nasal Cannula Weight: 82.1 kg Body Mass Index (BMI) 33.0 Sodium 140 mmol/L (136-145) 04/04/22 06:53 Potassium 4.0 mmol/L (3.5-5.1) 04/04/22 06:53 Chloride 106 mmol/L (98-107) 04/04/22 06:53 Carbon Dioxide 27.0 mmol/L (21.0-32.0) 04/04/22 06:53 Anion Gap 7 (5-15) 04/04/22 06:53 BUN 14 mg/dL (7-18) 04/04/22 06:53 Creatinine 0.95 mg/dL (0.55-1.02) 04/04/22 06:53 Est GFR (MDRD) Af Amer 74 mL/min (>60) 04/04/22 06:53 Est GFR (MDRD) Non-Af 61 mL/min (>60) 04/04/22 06:53 BUN/Creatinine Ratio 14.7 RATIO (10-20) 04/04/22 06:53 Glucose 120 mg/dL (74-106) H 04/04/22 06:53 Assessment/Plan: 1. Pain: acetaminophen 1000mg PO Q6H PRN pain 1-10 and arthritis pain compound 2 clicks topical (shoulder) BID. Resident has had 2 doses for pain of 4 in the chest and 8 in the shoulder. Please continue to monitor for increased pain and PRN usage. 2. Bowel: Miralax 17gm PO daily, senna/docusate 1T PO BID, bisacodyl 10mg RC x1 PRN constipation and MOM 30mL PO x1 PRN constipation. Resident has not had any PRN doses. Last documented bowel movement 2/5. Please continue to monitor for constipation and PRN usage. 3. Hypertension/CAD s/p stent/CHF/atrial fibrillation/left KASEY/MCA stroke: carvedilol 12.5mg PO BIDCM, amlodipine 10mg PO daily, losartan 100mg PO daily, clopidogrel 75mg PO daily, aspirin 81mg PO DAILYCM and spironolactone 12.5mg PO daily. Please continue to monitor BP (last 127/52), HR (last 55), swelling, potassium (last 4mmol/L), S/S of bleeding, hemoglobin (last 9.3g/dL) and renal function. Please see physician note regarding anticoagulation. 4. Hyperlipidemia: atorvastatin 80mg PO QHS. Please consider ordering a lipid panel if clinically indicated as this resident does not have one in the chart. Thanks. Please continue to monitor for muscle pain and LFTs (last 03/11/22). 5. GERD: famotidine 20mg PO daily. Please continue to monitor for S/S of GERD and renal function. 6. COPD: albuterol nebulized solution 2.5mg inhalation Q4H PRN shortness of breath. Please continue to monitor for PRN usage (no doses yet) and shortness of breath. Assessment/Plan for indications treated with psychotropic medications: None Medical chart and medication regimen reviewed. The following medication irregularities or issues were identified: *1. Atorvastatin 80mg PO QHS. Please consider ordering a lipid panel if clinically indicated as this resident does not have one in the chart. Thanks. Date of Note:: 04/05/22
--- NOTE | 2022-04-05 10:55 | NURSING ---
denies Chest pain at this time, resting in bed, repositioned and pulled pt up. HOB elevated. call light in reach.
--- NOTE | 2022-04-05 13:00 | NURSING ---
Parts Counterman Note; Activity Asset: Kathi Carvalho is independent in her choice of daily activities. She will watch TV, read, talk w/family and friends. She will attend small group activities when ready.
[2022-04-05 14:00] VITALS: BP 168/57; PULSE 62; RESP 17; TEMP 36.8; O2SAT 98
[2022-04-05 14:57] VITALS: O2SAT 98
[2022-04-05] MEDS: Senna/Docusate Sodium 1 Tablet PO (17:03)
[2022-04-05 20:00] VITALS: PULSE 60; RESP 16; O2SAT 98
[2022-04-05] MEDS: Atorvastatin Calcium 80 MG Tablet PO (20:09)
[2022-04-06] MEDS: Polyethylene Glycol 3350 17 GM PACKET PO (04:50)
[2022-04-06] MEDS: amLODIPine 10 MG Tablet PO (04:50)
[2022-04-06] MEDS: Losartan Potassium 100 MG Tablet PO (04:50)
[2022-04-06] MEDS: Clopidogrel Bisulfate 75 MG Tablet PO (04:50)
[2022-04-06] MEDS: Spironolactone 25 MG Tablet 12.5 MG PO (04:50)
[2022-04-06] MEDS: Famotidine 20 MG Tablet PO (04:50)
[2022-04-06] MEDS: Senna/Docusate Sodium 1 Tablet PO ×2 (04:50→18:07)
[2022-04-06] MEDS: Nystatin Powder 15gm Bottle 1 APPLIC TOPICAL ×2 (04:51→20:04)
[2022-04-06] MEDS: Arthritis Pain Compound 60 CLICK TUBE TOPICAL ×2 (04:52→18:07)
[2022-04-06 06:01] LABS: Hematocrit 29.8 % (37-47); Hemoglobin 9.2 g/dL (12.0-15.0)
[2022-04-06] MEDS: Aspirin 81 MG TAB.CHEW PO (08:48)
[2022-04-06] MEDS: Carvedilol 12.5 MG Tablet PO ×2 (08:48→18:07)
[2022-04-06 08:50] VITALS: BP 122/68; PULSE 57
[2022-04-06] MEDS: Ascorbic Acid 500 MG Tablet PO (08:52)
--- NOTE | 2022-04-06 10:39 | CASEMGMT ---
Addendum entered by Xochitl Youssef 04/06/22 11:03: Correction: Pt choosing full code with intubation. LILO Hardwick Original Note: Social Work SW met with pt and introduced self and role of SW. SW discussed code status and reviewed MOLST form with pt and assisted in completing. MOLST form placed in MD folder for review. Pt choosing full code with no intubation. BIMS assessment completed with pt with score of 15/15. SW will continue to follow for d/c planning. LILO Hardwick
[2022-04-06] MEDS: Iron Polysaccharide Complex 150 MG CAPSULE PO (10:57)
[2022-04-06] MEDS: Menthol/Lanolin/Calamine/Znox 113 GM Tube 1 APPLIC TOPICAL (10:58)
[2022-04-06 11:23] VITALS: O2SAT 98
[2022-04-06 13:10] VITALS: BP 105/62; PULSE 60; RESP 16; TEMP 36.2; O2SAT 98
[2022-04-06 14:35] VITALS: BP 145/47; PULSE 73; RESP 18; O2SAT 99
--- NOTE | 2022-04-06 15:00 | EKG12_ITS ---
Test Reason : CP Blood Pressure : / mmHG Vent. Rate : 058 BPM Atrial Rate : 058 BPM P-R Int : 148 ms QRS Dur : 096 ms QT Int : 450 ms P-R-T Axes : 060 -29 097 degrees QTc Int : 441 ms Sinus bradycardia Septal infarct (cited on or before 05-APR-2022) Abnormal ECG When compared with ECG of 05-APR-2022 05:24, Serial changes of Septal infarct Present Confirmed by LOURDES OTTO, EMRE ([id number]), state editor CELSO PHIPPS ([id number]) on 04/08/2022 1:05:08 PM Referred By: VANITA Confirmed By:EMRE FREED MD
[2022-04-06] MEDS: Acetaminophen 500 MG Tablet 1000 MG PO (15:33)
--- NOTE | 2022-04-06 17:27 | NURSING ---
1430-this RN notified that patient complaining of chest pain, went to room to assess patient. She described pain as heavy, left sided pain that radiates to back, 10/07. VSS. 02 sat 98% on 2L NC. EKG done, Dr. Yip updated on results. After a while patient said chest pain resolved and was only having back pain. Tylenol given. Back pain also resolved after Tylenol given.
[2022-04-06 18:06] VITALS: BP 140/44; PULSE 54
[2022-04-06] MEDS: Atorvastatin Calcium 80 MG Tablet PO ×2 (19:59→20:00)
[2022-04-06 20:00] VITALS: PULSE 61; RESP 16; O2SAT 99
[2022-04-07] VITALS (8 sets, daily range): BP systolic 103–199; BP diastolic 35–69; PULSE 54–64; RESP 16–18; TEMP 36.1; O2SAT 97–99
[2022-04-07] MEDS: Iron Polysaccharide Complex 150 MG CAPSULE PO (05:32)
[2022-04-07] MEDS: Famotidine 20 MG Tablet PO (05:32)
[2022-04-07] MEDS: Losartan Potassium 100 MG Tablet PO (05:32)
[2022-04-07] MEDS: Menthol/Lanolin/Calamine/Znox 113 GM Tube 1 APPLIC TOPICAL ×3 (05:32→20:30)
[2022-04-07] MEDS: Arthritis Pain Compound 60 CLICK TUBE TOPICAL ×2 (05:33→16:36)
[2022-04-07] MEDS: Spironolactone 25 MG Tablet 12.5 MG PO (05:33)
[2022-04-07] MEDS: amLODIPine 10 MG Tablet PO (05:33)
[2022-04-07] MEDS: Clopidogrel Bisulfate 75 MG Tablet PO (05:33)
[2022-04-07] MEDS: Senna/Docusate Sodium 1 Tablet PO ×2 (05:33→16:36)
[2022-04-07] MEDS: Polyethylene Glycol 3350 17 GM PACKET PO (05:33)
[2022-04-07] MEDS: Nystatin Powder 15gm Bottle 1 APPLIC TOPICAL ×2 (05:34→16:38)
[2022-04-07] MEDS: Carvedilol 12.5 MG Tablet PO (08:00)
[2022-04-07] MEDS: Aspirin 81 MG TAB.CHEW PO (08:00)
[2022-04-07] MEDS: Ascorbic Acid 500 MG Tablet PO (08:00)
--- NOTE | 2022-04-07 11:15 | CASEMGMT ---
Social Work IDT met with patient and son for care plan meeting. Discussed patient's progress in PT/OT/ST/SN. Educated to Medicare benefit. Pt does not have part B or secondary insurance. Son stated pt applied for part B through [employer] already. SW requested once information is confirmed to provide member number. SW educated to pt transferring to RU today or tomorrow and will provide ELOS. Son is anxious to get pt home. SW educated to RU Team meetings Tuesday 1230-130. Son stated he has class and usually will not be able to participate. SW to follow on RU. Plan: DC to [facility]
--- NOTE | 2022-04-07 14:47 | NURSING ---
Addendum entered by Isis Carter 04/07/22 15:17: dr hernandes returned call, new order hydralazine 25mg TID and increase coreg 25mg Addendum entered by Isis Carter 04/07/22 14:50: PT DENIES ANY SYMPTOMS. WATCHING TV, CALL LIGHT IN REACH. AWAITING RETURN CALL FROM CECILIO. Original Note: BP ELEVATED 234/66 HR 57 VIA MONITOR. MANUAL bp 180/69, DR HERNANDES NOTIFIED.
[2022-04-07] MEDS: hydrALAZINE 25 MG Tablet PO (15:31)
[2022-04-07] MEDS: Carvedilol 25 MG Tablet PO (16:35)
[2022-04-07] MEDS: hydrALAZINE 50 MG Tablet PO (16:46)
--- NOTE | 2022-04-07 16:50 | NURSING ---
dr lopez notified of pt elevated BP again 199/60 hr 57. NEW ORDER TO ADMINISTER APRESOLINE 50MG. PT UPDATED.
--- NOTE | 2022-04-07 17:00 | NURSING ---
PT C/O RT SHOULDER SHARP PAIN, ESPECIALLY WITH MOVEMENT. PT STATES ITS BEEN THIS WAY FOR YEARS. OFFERED TYLENOL AND PT REFUSED. STAFF HAS BEEN GETTING BPS IN RT ARM D/T PT HAVING SIGN ABOVE HOB NO BP'S IN LEFT ARM D/T A PICC IN ARM, NOT BREAST CANCER. PICC HAD BEEN REMOVED COUPLE DAYS AGO. SO WILL ENCOURAGE BP'S IN LT ARM D/T PAIN.
--- NOTE | 2022-04-07 17:55 | RAD_ITS ---
STUDY: X-RAY - RIGHT SHOULDER REASON FOR EXAM: Female, 76 years old. Sharp shoulder pain shooting down the right arm. Chronic pain for 7 years, worsening over the last few days.. TECHNIQUE: 2 view(s) of the shoulder. COMPARISON: None. FINDINGS: There is degenerative arthrosis of the glenohumeral articulation. There is degenerative arthrosis of the acromioclavicular joint without inferior osseous spur formation. Normal acromion. There is no acute fracture, dislocation or destructive osseous pathology. Normal humeral head and visualized proximal humerus. The soft tissue structures are unremarkable. Normal visualized pulmonary apex. RAD/Shoulder min 2 Views IMPRESSION: Degenerative changes of the right shoulder. Electronically Signed: Jozef Saez DO at 18:12 EST ,
[2022-04-07] MEDS: Acetaminophen 500 MG Tablet 1000 MG PO (18:26)
--- NOTE | 2022-04-07 18:32 | NURSING ---
XRAY OF RT SHOULDER SHOWED ARTHROSIS JOINT. TYLENOL GIVEN. PT RESTING IN BED.
--- NOTE | 2022-04-07 19:58 | DS.PCM_ITS ---
Providers Date of Admission: 04/03/22 Reason For Visit: CVA Diagnosis Discharge Diagnosis (1) Debility: Status: Acute Code(s): R53.81 - Other malaise (2) Left carotid artery occlusion: Status: Acute Code(s): I65.22 - Occlusion and stenosis of left carotid artery (3) History of left common carotid artery stent placement: Status: Acute Code(s): Z98.890 - Other specified postprocedural states; Z95.828 - Presence of other vascular implants and grafts (4) Left acute arterial ischemic stroke, MCA (middle cerebral artery): Status: Acute Code(s): I63.512 - Cerebral infarction due to unspecified occlusion or stenosis of left middle cerebral artery (5) Acute left KASEY ischemic stroke: Status: Acute Code(s): I63.522 - Cerebral infarction due to unspecified occlusion or stenosis of left anterior cerebral artery (6) STEMI (ST elevation myocardial infarction): Status: Acute Code(s): I21.3 - ST elevation (STEMI) myocardial infarction of unspecified site (7) NSTEMI (non-ST elevated myocardial infarction): Status: Acute Code(s): I21.4 - Non-ST elevation (NSTEMI) myocardial infarction (8) Atrial fibrillation with rapid ventricular response: Status: Acute Code(s): I48.91 - Unspecified atrial fibrillation (9) History of placement of stent in LAD coronary artery: Status: Acute Code(s): Z95.5 - Presence of coronary angioplasty implant and graft (10) History of right coronary artery stent placement: Status: Acute Code(s): Z95.5 - Presence of coronary angioplasty implant and graft (11) Coronary artery disease: Status: Acute Code(s): I25.10 - Atherosclerotic heart disease of [place] coronary artery without angina pectoris (12) Hypertension: Status: Chronic Code(s): I10 - Essential (primary) hypertension (13) Hyperlipidemia, unspecified: Status: Acute Code(s): E78.5 - Hyperlipidemia, unspecified (14) Acute on chronic diastolic (congestive) heart failure: Status: Chronic Code(s): I50.33 - Acute on chronic diastolic (congestive) heart failure (15) Chronic obstructive pulmonary disease: Status: Chronic Code(s): J44.9 - Chronic obstructive pulmonary disease, unspecified (16) Aortic stenosis: Status: Acute Code(s): I35.0 - Nonrheumatic aortic (valve) stenosis Plan 76 year old female with below past medical history of recent atrial fibrillation with rapid ventricular response, STEMI s/p LAD stent, NSTEMI s/p RCA stent, hospitalized for left ICA occlusion, underwent angioplasty/stent, complicated by left KASEY/MCA stroke, admitted to TCU with debility, here for rehabilitation, strengthening, prior to discharge home with family. * Debility - PT/OT. * Cognition/dysphagia - ST. * Pain - Tylenol 1000mg q6 prn pain (1-10). * Bowel - Miralax 17gm daily, senna/colace 1 tablet bid, Dulcolax 10mg pr x 1 prn, MOM 30ml po x 1 prn. * Adult immunization - Administer pneumonia vaccine, covid19 vaccine, flu vaccine as appropriate. * DVT prophylaxis - Hold, on dual antiplatelet therapy. * COPD - Albuterol 2.5mg q4h prn. * Hypertension - Coreg 12.5mg bidcm, Losartan 100mg daily, Amlodipine 10mg daily. * Left KASEY/MCA stroke - Plavix 75mg daily, Aspirin 81mg daily. * Hyperlipidemia - Atorvastatin 80mg qhs. * Coronary artery disease s/p stent x 2 - Coreg 12.5mg bidcm, Losartan 100mg daily, Plavix 75mg daily, Aspirin 81mg daily. * GERD - Famotidine 20mg daily. * Chronic diastolic congestive heart failure - Coreg 12.5mg bidcm, Losartan 100mg daily, Aldactone 12.5mg daily. * Left carotid artery occlusion s/p angioplasty/stent - Plavix 75mg daily, Aspirin 81mg daily. * Atrial fibrillation - Coreg 12.5mg bidcm, Aspirin 81mg daily, review hospital records to see if anticoagulation warranted. Medications at Discharge Home Medications aspirin 81 mg chewable tablet 81 mg PO DAILY heart 03/10/22 clopidogrel 75 mg tablet (Plavix) 75 mg PO DAILY blood thinner 03/10/22 Arthritis Pain Compound 2 click topical BID ##0 04/07/22 Petrolatum 33% [Eucerin Eqivalent] 1 applic topical BID PRN ##0 04/07/22 acetaminophen 500 mg tablet 1,000 mg PO Q6H PRN PRN Pain Score 1-10 #0 tabs 04/07/22 amlodipine 10 mg tablet 10 mg PO DAILY #0 tabs 04/07/22 ascorbic acid (vitamin C) 500 mg tablet 500 mg PO BREAKFAST #0 tabs 04/07/22 atorvastatin 80 mg tablet 80 mg PO QHS #0 tabs 04/07/22 carvedilol 25 mg tablet 25 mg PO BIDCM #0 tabs 04/07/22 famotidine 20 mg tablet 20 mg PO DAILY #0 tabs 04/07/22 hydralazine 25 mg tablet 25 mg PO TID #0 tabs 04/07/22 losartan 100 mg tablet 100 mg PO DAILY #0 tabs 04/07/22 magnesium hydroxide 400 mg/5 mL oral suspension 30 ml PO X1 PRN Constipation #0 mL 04/07/22 menthol 0.44 %-zinc oxide 20.6 % topical ointment (Calmoseptine) 1 applic topical 1000,2200 #0 grams 04/07/22 nystatin 100,000 unit/gram topical powder (Nyamyc) 1 applic topical BID #0 grams 04/07/22 polyethylene glycol 3350 17 gram oral powder packet 17 g PO DAILY #0 ea 04/07/22 polysaccharide iron complex 150 mg iron capsule (Ferrex) 150 mg PO DAILY #0 caps 04/07/22 sennosides 8.6 mg-docusate sodium 50 mg tablet (Stool Softener-Stimulant Laxative) 1 tab PO BID #0 tabs 04/07/22 spironolactone 25 mg tablet 12.5 mg PO DAILY #0 tabs 04/07/22 Hospital Course Operations - (See below.) Procedures None Summary of Care Provided Minutes Spent on Discharge: 35 Hospital Course: 76 year old female with below past medical history of recent atrial fibrillation with rapid ventricular response, STEMI s/p LAD stent, NSTEMI s/p RCA stent, hospitalized for left ICA occlusion, underwent angioplasty/stent, complicated by left KASEY/MCA stroke, admitted to TCU with debility, here for rehabilitation, strengthening, prior to discharge home with family. 04/07/2022 Resident had chest pain, EKG with following: Sinus bradycardia Left axis deviation Septal infarct , age undetermined ST & T wave abnormality, consider lateral ischemia Abnormal ECG When compared with ECG of 16-MAR-2022 11:57, T wave inversion no longer evident in Inferior leads Chest pain resolved. 04/07/2022 Resident had elevated blood pressure to 190's systolic, she also had right shoulder pain. X-ray right shoulder shows degenerative changes, her carvedilol was increased, and Hydralazine was added, blood pressure did improve to 150's systolic. Discharge to 04/08/2022 for 3 hours daily rehabilitation, strengthening, prior to discharge home with family. Physical Exam Const alert General Appearance: cooperative HEENT normocephalic Eyes PERRL and EOMs intact bilaterally Neck supple, no JVD and no carotid bruits Resp normal respiratory effort, normal air movement and clear to auscultation bilaterally Cardio regular rate and regular rhythm GI normal to inspection, nondistended, normoactive bowel sounds, non-tender and non-distended Extremity normal capillary refill General Extremity: Negative for edema Skin no rashes or lesions noted General Skin Exam: no breakdown Psych affect normal Appearance: appropriate Weight / BMI Weight Weight: 82.372 kg Body Mass Index (BMI) 33.0 ABG / Lab / Microbiology Data Result Diagrams: 04/06/22 05:15 04/04/22 06:53 Microbiology: Microbiology 04/07/22 06:20 Nasal Secretion SARS-CoV-2 Antigen (Rapid) - Final 04/05/22 06:30 Nasal Secretion SARS-CoV-2 Antigen (Rapid) - Final 04/03/22 22:46 Nasal Secretion SARS-CoV-2 Antigen (Rapid) - Final Radiography Diagnostic Testing: Radiology Impression Shoulder X-Ray 04/07/22 17:55 IMPRESSION: Degenerative changes of the right shoulder. Electronically Signed: Jozef Saez DO at 18:12 EST Reading Location ID and State: [address] [place] [address] Tel [phone], Service support , D/C Instructions Discharge Diet: No restrictions Discharge Activity: Return to Normal Activity, May Shower and Use Walker Weight Bearing Status: Weight bearing as tolerated Call your doctor if you observe: Fever of 101 or Higher, Inability to urinate, Inability to have a bowel movement, Shortness of breath, Dizziness, Fainting spells, Swelling in the ankles, Chest pain and Uncontrolled pain Additional Instructions: Discharge to 04/08/2022 for 3 hours daily rehabilitation, strengthening, prior to discharge home with family. Please Follow Up With: Carlitos Mckeon MD When: As scheduled. Meaningful Use Info Meaningful Use Diagnoses (Choose all that apply): AMI and Ischemic CVA AMI/Post PCI/Angioplasty Aspirin given w/in 24hrs of arrival?: Yes ASA at discharge?: Yes Statins at discharge?: Yes Raulito/ARB at discharge?: Yes Beta Christiano at discharge?: Yes Done w/ Acute PR measure.: Yes CVA Therapy Assessed for PT,OT and/or ST?: Yes Ischemic Stroke Antithrombotic order at d/c?: Yes Dx of Atrial fib/flutter?: Yes Anticoagulant at discharge?: No Reason anticoagulant not ordered: Medical Contraindication Statins at discharge?: Yes Primary Dx Acute Ischemic CVA?: No IV tPA ordered during stay?: No Reason IV t-PA not ordered: Procedure not Indicated Discharge Plan Admission Admit Date/Time: 04/03/22 20:30 Primary Reason for Your Visit: Debility. Attending Provider: Bubba Yip Chi Instructions Additional Instructions / Restrictions: Discharge to 04/08/2022 for 3 hours daily rehabilitation, strengthening, prior to discharge home with family. Discharge Orders/Prescriptions Prescriptions: New Arthritis Pain Compound 2 click topical BID Qty: 0 0RF atorvastatin 80 mg Tablet 80 mg PO QHS Qty: 0 0RF carvedilol 25 mg Tablet 25 mg PO BIDCM Qty: 0 0RF polyethylene glycol 3350 17 gram Powder In Packet 17 g PO DAILY Qty: 0 0RF polysaccharide iron complex [Ferrex 150] 150 mg iron Capsule 150 mg PO DAILY Qty: 0 0RF sennosides-docusate sodium [Stool Softener-Stimulant Laxat] 8.6-50 mg Tablet 1 tab PO BID Qty: 0 0RF hydralazine 25 mg Tablet 25 mg PO TID Qty: 0 0RF acetaminophen 500 mg Tablet 1,000 mg PO Q6H PRN PRN (Reason: Pain Score 1-10) Qty: 0 0RF spironolactone 25 mg Tablet 12.5 mg PO DAILY Qty: 0 0RF famotidine 20 mg Tablet 20 mg PO DAILY Qty: 0 0RF magnesium hydroxide 400 mg/5 mL Suspension 30 ml PO X1 PRN (Reason: Constipation) Qty: 0 0RF ascorbic acid (vitamin C) 500 mg Tablet 500 mg PO BREAKFAST Qty: 0 0RF amlodipine 10 mg Tablet 10 mg PO DAILY Qty: 0 0RF nystatin [Nyamyc] 100,000 unit/gram Powder 1 applic topical BID Qty: 0 0RF losartan 100 mg Tablet 100 mg PO DAILY Qty: 0 0RF menthol-zinc oxide [Calmoseptine] 0.44-20.6 % Ointment 1 applic topical 1000,2200 Qty: 0 0RF Protocol: *Topical Application Instructions APPLICATION INSTRUCTIONS: bilat buttocks Petrolatum 33% [Eucerin Eqivalent] 1 applic topical BID PRN Qty: 0 0RF Continued clopidogrel [Plavix] 75 mg Tablet 75 mg PO DAILY aspirin 81 mg Tablet,Chewable 81 mg PO DAILY Discontinued atorvastatin [Lipitor] 40 mg Tablet 40 mg PO QHS ipratropium-albuterol 0.5 mg-3 mg(2.5 mg base)/3 mL Solution For Nebulization 3 ml inhalation 4XD sennosides-docusate sodium [Senna with Docusate Sodium] 8.6-50 mg Tablet 1 tab-cap PO BID Eliquis 2.5 mg Tablet 2.5 mg PO BID losartan 50 mg Tablet 50 mg PO DAILY amlodipine [Norvasc] 5 mg Tablet 5 mg PO DAILY spironolactone [Aldactone] 25 mg Tablet 25 mg PO DAILY Disposition Disposition (needs filled in before D/C Order can be placed): Inpatient Rehab Unit/Facility
[2022-04-08] MEDS: Polyethylene Glycol 3350 17 GM PACKET PO (05:41)
[2022-04-08] MEDS: Spironolactone 25 MG Tablet 12.5 MG PO (05:41)
[2022-04-08] MEDS: Famotidine 20 MG Tablet PO (05:41)
[2022-04-08] MEDS: Clopidogrel Bisulfate 75 MG Tablet PO (05:41)
[2022-04-08] MEDS: Arthritis Pain Compound 60 CLICK TUBE TOPICAL (05:41)
[2022-04-08] MEDS: amLODIPine 10 MG Tablet PO (05:41)
[2022-04-08] MEDS: Iron Polysaccharide Complex 150 MG CAPSULE PO (05:41)
[2022-04-08] MEDS: Senna/Docusate Sodium 1 Tablet PO (05:41)
[2022-04-08] MEDS: Losartan Potassium 100 MG Tablet PO (05:42)
[2022-04-08] MEDS: Nystatin Powder 15gm Bottle 1 APPLIC TOPICAL (05:43)
[2022-04-08 05:44] VITALS: BP 144/78; PULSE 60
[2022-04-08] MEDS: hydrALAZINE 25 MG Tablet PO (05:44)
[2022-04-08 05:53] LABS: Hematocrit 32.1 % (37-47); Hemoglobin 9.8 g/dL (12.0-15.0)
[2022-04-08] MEDS: Aspirin 81 MG TAB.CHEW PO (08:19)
[2022-04-08] MEDS: Ascorbic Acid 500 MG Tablet PO (08:19)
[2022-04-08] MEDS: Acetaminophen 500 MG Tablet 1000 MG PO (08:19)
[2022-04-08] MEDS: Carvedilol 25 MG Tablet PO (08:21)
[2022-04-08] MEDS: Menthol/Lanolin/Calamine/Znox 113 GM Tube 1 APPLIC TOPICAL (08:22)
[2022-04-08 08:23] VITALS: BP 134/45; PULSE 58; RESP 16; TEMP 36.6; O2SAT 97
[2022-04-08 08:28] VITALS: PULSE 57; RESP 16; O2SAT 97
--- NOTE | 2022-04-08 09:29 | NURSING ---
0900 REPORT GIVEN TO [facility]
--- NOTE | 2022-04-13 07:42 | MDS.RN ---
Information for the mds was obtained from review of the clinical record, interview of resident, staff, and direct observation of resident's care.
== END 2022-04-08 10:13 | DRG 281 ==
PROVIDERS: Admitting Provider Family Medicine Geriatric Medicine; Visit Provider Family Medicine Geriatric Medicine
DX: I21.09 ST elevation (STEMI) myocardial infarction involving other coronary artery of anterior wall (principal); I50.32 Chronic diastolic (congestive) heart failure; I11.0 Hypertensive heart disease with heart failure; I48.91 Unspecified atrial fibrillation; J44.9 Chronic obstructive pulmonary disease, unspecified; I25.10 Atherosclerotic heart disease of native coronary artery without angina pectoris; E78.5 Hyperlipidemia, unspecified; K21.9 Gastro-esophageal reflux disease without esophagitis; Z86.73 Personal history of transient ischemic attack (TIA), and cerebral infarction without residual deficits; Z79.01 Long term (current) use of anticoagulants; Z87.891 Personal history of nicotine dependence; Z79.899 Other long term (current) drug therapy; Z79.82 Long term (current) use of aspirin; Z95.5 Presence of coronary angioplasty implant and graft
CPT/HCPCS: 36415; 73030; 80048; 85014; 85018; 85025; 87811; 92507; 92523; 92526; 92610; 93005; 97110; 97162; 97166; 97530; 97535; 97802; 99406; A4216

== ENCOUNTER 2022-04-08 10:13 | Inpatient (IN) | payer MEDICARE, SELFPAY ==
[2022-04-08 10:17] VITALS: BP 122/58; PULSE 48; RESP 15; TEMP 36.9; O2SAT 98; BMI 33.4
--- NOTE | 2022-04-08 10:59 | HP.PCM_ITS ---
[facility] Date of Admission: 04/08/22 Date of Service: 04/08/22 Chief Complaint: Debility secondary to recent stroke, PTCA with stent to the RCA at [facility] and left internal carotid angioplasty and stent at [facility] on 03/25/2022. [facility] Narrative MAIA ARTEAGA, is a 76 YO F who is known to me from a recent admission to acute rehab for CVA. She was transferred to rehab from [facility]. Prior to being seen at [facility] she presented to the ED at [facility] for SOB and was found to be in AF with RVR with CHF and an NSTEMI. A transthoracic echocardiogram showed a 45 to 50% ejection fraction with severe aortic stenosis and a severely dilated left atrium. She underwent cardiac catheterization on 03/03/2022 and it showed a 95% stenosis of the proximal LAD, 80% stenosis of the proximal RCA and a 70% stenosis of the mid RCA. A stent was placed to the LAD. Post cath she had significant right-sided weakness, aphasia and dysarthria and was diagnosed with an acute embolic CVA in the left frontal parietal region. 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 She was transferred to [facility] where an MRI showed scattered left hemispheric mayers-white/subcortical subcentimeter infarcts and an isolated right cerebellar punctate infarct due to thromboemboli. Endovascular intervention was attempted but failed. She was transferred to [facility] acute rehab unit on 03/10/2022 for 3 hours of therapy daily. While in rehab she experienced severe substernal and epigastric chest pain associated with nausea and radiation to her neck and jaw. Her EKG was changed from the last EKG at [facility]. She she was transferred from acute rehab to the acute side of the hospital. Troponin peaked at 276 on 03/11/2022 and on 03/16/2022 was back to 71. She was seen by cardiology who felt the EKG changes were due to evolution of previous NSTEMI. She was diagnosed with a second NSTEMI and cardiology recommended aggressive risk factor management and eventual AV replacement. She was transferred back to rehab on 03/15/22. Maia continued to have substernal and epigastric CP which radiated to her neck and jaw and was associated with SOB and nausea. She was transferred to [facility] and Dr. Calos Jaramillo was the accepting physician. The RCA was stented and the CP/nausea/SOB resolved. She had waxing and waning neurologic deficits and on 03/23/22 was transferred to [facility] for evaluation for L ICA occlusion and possible intervention. On 03/25/22 she had Left ICA angioplasty and stenting. She was transferred to TCU at [facility] for rehabilitation. She was transferred to acute rehab on 04/08/22 when a bed became available. She will receive 3 hours of therapy a day to restore function/independence at or near her level prior to the stroke. Afebrile VSS pulse has ranged from 48-71 since she was transferred from [facility]. Blood pressure is well controlled. Maintaining appropriate oxygen saturation on RA Discussed with nursing - no problems that need addressed Medication list reviewed. The most recent lab from 04/04/2022 was personally reviewed. Hemoglobin was 9.3 on 04/04/2022 and on 04/08/2022 is 9.8. Platelets were within normal limits. BMP on 04/04/2022 was unremarkable with a BUN of 14, creatinine of 0.95, potassium of 4 and a sodium level of 140. All documentation received from [facility] was personally reviewed. There are 8 pages to the discharge summary and we only received pages 3, 5 and 7 so will call for the rest. At the time she left [facility] her BP was not consistently > 160. When it is less than 160 systolic we can start AC with Eliquis, DC ASA and continue with Plavix. Blood pressures since 04/07/2022 have ranged from 103/37 to 199/68. Current blood pressure is 122/58. Blood pressure medications include amlodipine 10 mg p.o. daily, Coreg 25 mg twice daily, hydralazine 25 mg p.o. 3 times daily and Cozaar 100 mg daily. [facility] Medical History (Updated 04/08/22 @ 15:[address] Isis Lanier DO) Congestive heart failure (CHF) GERD (gastroesophageal reflux disease) NSTEMI (non-ST elevated myocardial infarction) Severe aortic stenosis Sleep apnea Stroke/cerebrovascular accident Home Medications aspirin 81 mg chewable tablet 81 mg PO DAILY heart 03/10/22 [History Last Taken Unknown] clopidogrel 75 mg tablet (Plavix) 75 mg PO DAILY blood thinner 03/10/22 [History Last Taken Unknown] acetaminophen 500 mg tablet 1,000 mg PO Q6H PRN PRN Pain Score 1-10 #0 tabs 04/07/22 [Rx Last Taken Unknown] magnesium hydroxide 400 mg/5 mL oral suspension 30 ml PO X1 PRN Constipation #0 mL 04/07/22 [Rx Last Taken Unknown] Arthritis Pain Compound 2 click topical BID pain 04/08/22 [History Last Taken Unknown] Petrolatum 33% [Eucerin Eqivalent] 1 applic topical BID PRN Skin protection 04/08/22 [History Last Taken Unknown] amlodipine 10 mg tablet 10 mg PO DAILY BP 04/08/22 [History Last Taken Unknown] ascorbic acid (vitamin C) 500 mg tablet 500 mg PO BREAKFAST Supplement 04/08/22 [History Last Taken Unknown] atorvastatin 80 mg tablet 80 mg PO QHS Cholestrol 04/08/22 [History Last Taken Unknown] carvedilol 25 mg tablet 25 mg PO BIDCM BP 04/08/22 [History Last Taken Unknown] famotidine 20 mg tablet 20 mg PO DAILY GERD 04/08/22 [History Last Taken Unknown] hydralazine 25 mg tablet 25 mg PO TID BP 04/08/22 [History Last Taken Unknown] losartan 100 mg tablet 100 mg PO DAILY BP 04/08/22 [History Last Taken Unknown] menthol 0.44 %-zinc oxide 20.6 % topical ointment (Calmoseptine) 1 applic topical 1000,2200 Skin protection 04/08/22 [History Last Taken Unknown] nystatin 100,000 unit/gram topical powder (Nyamyc) 1 applic topical BID Yeast 04/08/22 [History Last Taken Unknown] polyethylene glycol 3350 17 gram oral powder packet 17 g PO DAILY Constipation 04/08/22 [History Last Taken Unknown] polysaccharide iron complex 150 mg iron capsule (Ferrex) 150 mg PO DAILY Supplement 04/08/22 [History Last Taken Unknown] sennosides 8.6 mg-docusate sodium 50 mg tablet (Stool Softener-Stimulant Laxative) 1 tab PO BID Constipation 04/08/22 [History Last Taken Unknown] spironolactone 25 mg tablet 12.5 mg PO DAILY BP 04/08/22 [History Last Taken Unknown] Allergy/AdvReac Type Severity Reaction Status Date / Time MARK Inhibitors Allergy Unknown Other Verified 04/04/22 00:27 Family History Father , of an OR CAD (coronary artery disease) Brother , from an OR CAD (coronary artery disease) Diabetes Sister Alcoholism Mother , of old age No problems noted. Surgical History (Updated 04/08/22 @ 15:[address] Isis Lanier DO) History of appendectomy History of cholecystectomy History of right coronary artery stent placement History of total abdominal hysterectomy and bilateral salpingo-oophorectomy S/P angioplasty with stent Social History household members: family and other details: She lives with her son Jermaine and her brother Marbin in [place]. housing: house number of children: 4 current occupational status: retired Smoking Status: Former smoker quit date: 02/24/22 pack-years: 40 Tobacco: How many years used: 40 counseling given: counseling >3 minutes alcohol intake: never substance use type: does not use ROS Review of Systems ROS Unobtainable: Denies due to encephalopathy, due to endotracheal tube, due to mental condition or due to mental status Constitutional Constitutional: Denies anorexia, change in weight, chills, fatigue, fever(s), night sweats or weakness Eyes Eyes: Denies blurry vision, change in vision, eye pain or loss of vision ENT HEENT: Denies abnormal hearing, dysphagia, headache(s), hearing loss, nasal congestion or sore throat Cardiovascular Cardiovascular: Denies chest pain, dyspnea on exertion, edema, lightheadedness, orthopnea, palpitations, paroxysmal nocturnal dyspnea or syncope Respiratory/Chest Respiratory/Chest: Reports cough; Denies dyspnea, shortness of breath at rest, shortness of breath with exertion or wheezing Gastrointestinal Gastrointestinal: Denies abdominal pain, constipation, diarrhea, dyspepsia, hematemesis, hematochezia, nausea or vomiting Genitourinary Genitourinary: Denies dysuria, hematuria, nocturia, urinary frequency, urinary hesitancy, urinary incontinence or urinary urgency Musculoskeletal Musculoskeletal: Reports joint pain and other Details: Right shoulder pain ; Denies back pain, joint swelling or neck pain Integumentary Integumentary: Denies jaundice, pruritus or rash Neurologic Neurologic: Denies confusion, disequilibrium, dizziness, focal weakness, headache(s), paresthesias, seizures or tremor(s) Psychiatric Psychiatric: Denies anxiety, depression, homicidal ideation or suicidal ideation Endocrine Endocrinology: Denies change in body appearance, polydipsia or polyuria Hematologic/Lymphatic Hematologic/Lymphatic: Denies easy bleeding, easy bruising or lymphadenopathy Allergic/Immunologic Allergic/Immunologic: Denies rhinitis, eczemia or asthma Vital Signs Vital Signs Vital Signs: 04/08/22 10:17 Temperature 98.5 F Temperature Source Temporal Pulse Rate 48 L Respiratory Rate 15 Blood Pressure 122/58 H Blood Pressure Mean 79 Blood Pressure Source Manual Blood Pressure Position Sitting Blood Pressure Location Left Arm Pulse Ox 98 Oxygen Delivery Method Room Air Indicators for Scoring Admitted with or Primary Diagnosis of CVA/Stroke: Yes Hx of CVA/Stroke: Yes Modified [place] Score MRS Score at time of Evaluation: 3-Moderate disability NIHSS NIHSS 1a. Level of Consciousness: Alert; keenly responsive 1b. LOC Questions: Answers BOTH questions correctly. 1c. LOC Commands: Performs both tasks correctly. 2. Best Gaze: Normal 3. Visual: No visual loss 4. Facial Palsy: Normal symmetrical movements 5a. Left Arm: No drift; arm holds 90 (or 45) degrees for full 10 seconds 5b. Right Arm: No drift; arm holds 90 (or 45) degrees for full 10 seconds (Can only raise the right upper extremity to approximately 45 degrees due to shoulder pain but she can hold that position for 10 seconds with no drift.) 6a. Left Leg: No drift; leg holds 30-degree position for full 5 seconds 6b. Right Leg: No drift; leg holds 30-degree position for full 5 seconds 7. Limb Ataxia: Absent 8. Sensory: Normal; no sensory loss 9. Best Language: No aphasia; normal 10. Dysarthria: Normal 11. Extinction and Inattention: No abnormality Total: 0 Stroke Questions Stroke Team Activated: No Physical Exam Const alert Constitutional Narrative: Oriented to person, month, year, state. Can not tell me what city she is in. [place]. General Appearance: cooperative and well developed Orientation / Consciousness: Negative for confused HEENT normocephalic, head/scalp atraumatic, moist oral mucous membranes and oropharynx normal Eyes PERRL and EOMs intact bilaterally Neck supple and No nodes General: trachea midline Resp normal respiratory effort, normal air movement and clear to auscultation bilaterally Effort and Inspection: Negative for tachypneic or labored Cardio regular rate, regular rhythm, no rub and no gallops Cardio Narrative: 3/6 holosystolic murmur at the second right intercostal space with radiation to the left ventricular outflow tract, lower left sternal border, apex and into the carotids. There is also a soft systolic murmur present at the mitral listening post. GI normal to inspection, nondistended, normoactive bowel sounds, soft to palpation and non-tender GI Narrative: No guarding with palpation. Denies diarrhea and constipation. Extremity no calf tenderness General Extremity: Negative for clubbing or edema Skin no jaundice General Skin Exam: no breakdown Rashes: no rashes Neuro CN's II-XII intact bilaterally Neuro Narrative: She has some weakness in the right upper extremity but her range of motion is severely limited by the osteoarthritis/pain in her right shoulder. She was able to hold her arm up at approximately 45 degrees for 10 seconds with no drift. Coordination / Balance: [id number] test normal and [id number] test normal Speech: speech normal Psych thought process normal, cooperative, affect normal, denies homicidal ideation and denies suicidal ideation Appearance: appropriate Thought Content: No suicidality and No homicidality Assessment & Plan Assessment/Plan (1) Physical debility: (2) Acute left KASEY ischemic stroke: (3) History of placement of stent in LAD coronary artery: (4) History of right coronary artery stent placement: (5) S/P angioplasty with stent: (6) Hypertension: (7) Coronary artery disease: (8) Chronic obstructive pulmonary disease: (9) Hyperlipidemia, unspecified: (10) Left acute arterial ischemic stroke, MCA (middle cerebral artery): (11) Normochromic normocytic anemia: (12) Hyperlipidemia: (13) Glucose intolerance (impaired glucose tolerance): (14) Dysarthria: (15) Right hemiparesis: (16) LAE (left atrial enlargement): (17) Severe aortic stenosis: (18) Paroxysmal A-fib: (19) Tobacco use disorder, severe, in early remission, dependence: PLAN: Plan PLAN PT for gait stability OT for ADL's ST for evaluation Analgesics as needed Bowel protocol Fall precautions Assess for Anxiety/Depression GI prophylaxis with famotidine DVT prophylaxis with SCDs and GIO gonzalez Follow up with cardiology, PCP and neurology following DC from IP Rehab Order AM lab including CMP, CBC, Mag and Phos continue current medications Ordered as needed hydralazine for systolic blood pressure greater than 155 and diastolic pressure greater than 85. She is on 4 meds for HTN and has known CAD and cerebrovascular disease.......she should be evaluated at some point for ANA. Both [facility] and [facility] want to see this pt for a TAVR BUT, when she needed to be transferred from rehab for ACS both [facility] and [facility] refused admission - I recommended to her that she return to [facility] to have Dr. Jaramillo do the TAVR is she is willing. Right now she is very stable and this is not an immediate concern. Will discuss again in a few days with the Pt and will reach out to Dr. Jaramillo. Charges/Coding Visit Charges Inpatient E&M: 75944 Init Hosp L3
--- NOTE | 2022-04-08 12:02 | REHABEVAL_ITS ---
Admission Information Primary Diagnosis:: Post stroke debility Status Changes from Prescreening?: No changes Identified Actual Problem List:: Skin Intergrity, Pain, ALteration in Cmfrt, Mobility Impaired, Self Care Deficit, BP, Hypertension and Alteration-Leisure Activ. Potential Problem List:: DVT, Bleeding, Infection, UTI, Aspiration, Falls, Skin Integrity and Depression Risk of Complications DVT: GIO Hose and Sequential Compression Device Bleeding: Monitor Lab Values, Nursing to Teach Precautions for anti-coagulation therapy., Wound, if applicable, to be assessed every shift. and Stroke patients assessed for lethargy or change in status. Infection: Clinical Staff to Monitor for S/S of infection: and S/S of infection include fever, redness, warmth, etc. Urinary Tract Infection: Monitor for frequency, burning, discomfort, or incontinence. and Nursing will obtain urine sample for urinalysis and C&S when ordered. Aspiration: Clinical staff will monitor for coughing, drooling, congestion., Speech will evaluate swallowing and dsyphasia. and Nursing will monitor patient swallowing during meals. Falls: Patient will be evaluated for Fall Precautions and Patient will be placed on Fall Precautions as indicated per protocol. Skin Breakdown: Nursing will assess skin daily using assessment tool. and Nursing will place on Skin Breakdown Precautions as indicated. Pain: Clinical staff will assess patient's pain level per protocol., Medications will be given, if needed, and the pain level reassessed. and Other methods: Massage, distraction, decrease stimulus, etc. used PRN. Plan of Care Patient requires physician specializing in physical medicine and rehab oversight to provide close medical supervision of rehab issues including: Pain Management, Sleep Problems, Bowel and Bladder, Medical and co-morbidity Management, DVT prophylaxis, Rehabilitation Leadership and Coordination of treatment team Patient needs Physical Therapy: For a minimum of 1 hour and At least 5 out of 7 days Patient needs Physical Therapy to improve:: Mobility, Strengthening, Transfers, Stretching, ROM, Endurance, Stairs, Gait and Balance Patient needs Occupational Therapy: For a minimum of 1 hour and At least 5 out of 7 days Patient needs Occupational Therapy to improve ADL's incl.: Eating, Grooming, Bathing, Dressing, Toileting, Toilet transfers, Community Reintegration, Higher functioning activities, Household tasks, Adaptive Equipment, Splinting and Other activities as determined Patient requires speech therapy: For a minimum of 1 hour and At least 5 out of 7 days Patient requires speech therapy for: Swallowing, Cognition, Language Skills and Compensatory Strategies Patient requires 24/ Rehabilitation Nursing for: Pain Issues, Identifying and preventing risk factors, Monitoring and reporting current medical conditions, Assisting with ambulation, transfer, and all ADL's, Teaching patients about disease process and medications, Family teaching, Providing safe environment, Bowel and Bladder Issues, Skin integrity and Medication Management Patient needs Guidance Secretary/ Case Management for: Discharge Planning, Arranging Home Equipment or Services and Family Interventions Patient needs Dietary and Nutrition Services for: Adequate Nutrition, Nutritional Supplements and Nutritional Education Goals Patient will remain: free from falls and or injury at time of discharge. Patient will perform bed mobility at: MOD I level of assist. Patient will complete transfers from bed to chair at: MOD I level of assist. Patient will ambulate: - (200 feet with supervision to mod I using a front wheeled walker without loss of balance or cues for safety) Patient will complete upper body dressing at: MOD I level of assist. Patient will complete lower body dressing at: MOD I level of assist. (With adaptive equipment as needed.) Patient will complete toileting at: MOD I level of assist. Patient will perform bathing at: MOD I level of assist. Patient will complete grooming at: MOD I level of assist. Patient will complete home management skills at: MOD I level of assist. Patient will achieve: - (She will negotiate 3 steps with a front wheeled walker at contact-guard assist to standby assist x1 without cues for sequence or safety so that she may enter her home.) Patient will have pain level of: of 3 or less Patient's skin will: remain intact Patient will receive: adequate nutrition. Discharge Planning Pt Prognosis for Sig. Practical Improv. w/in Reasonable Time: Good Estimated Length of stay (days): 21 Anticipated D/C Destination: Home w/ family or friends Was Preadmission Assessment Accurate?: Yes
[2022-04-08 14:19] VITALS: PULSE 64
[2022-04-08] MEDS: hydrALAZINE 25 MG Tablet PO ×2 (14:19→21:17)
[2022-04-08] MEDS: Carvedilol 25 MG Tablet PO (16:30)
--- NOTE | 2022-04-08 16:53 | NURSING ---
Request for medical records faxed to [facility] per Dr. Lanier request.
--- NOTE | 2022-04-08 21:00 | NURSING ---
SCD's were not applied to patient per order because patient refused SCD's. Pt was educated on the importance of SCD's.
[2022-04-08 21:12] VITALS: BP 122/49; PULSE 58; RESP 16; TEMP 37.2; O2SAT 100
[2022-04-08 21:17] VITALS: PULSE 58
[2022-04-08] MEDS: Atorvastatin Calcium 80 MG Tablet PO (21:17)
[2022-04-08] MEDS: Arthritis Pain Compound 60 CLICK TUBE TOPICAL (21:17)
[2022-04-08] MEDS: Nystatin Powder 15gm Bottle 1 APPLIC TOPICAL (21:18)
[2022-04-08] MEDS: Menthol/Lanolin/Calamine/Znox 113 GM Tube 1 APPLIC TOPICAL (21:18)
[2022-04-09] VITALS (9 sets, daily range): BP systolic 116–154; BP diastolic 33–51; PULSE 60–66; RESP 17; TEMP 36.5–36.7; O2SAT 95–97
[2022-04-09] MEDS: Acetaminophen 500 MG Tablet 1000 MG PO (00:40)
[2022-04-09 05:58] LABS: Hematocrit 30.9 % (37-47); Hemoglobin 10.1 g/dL (12.0-15.0); Mean Corp Hgb Conc 32.7 g/dL (32-36); Mean Corpuscular Hgb 31.6 pg (27.0-32.0); Mean Corpuscular Volume 96.6 fL (81-99); Mean Platelet Vol. 10.2 fl (6.2-12.0); Platelet Count 460 K/mm3 (150-450); RBC Distribution Width CV 14.6 % (11.6-14.6); RBC Distribution Width SD 52.2 fl (35.1-43.9)
[2022-04-09 06:28] LABS: ALB/GLOB Ratio 0.9 RATIO (0.9-2.4); AST(SGOT) 17 U/L (15-37); Alanine Aminotransfer ALT/SGPT 16 U/L (13-56); Alkaline Phosphatase 64 U/L (45-117); Anion Gap 4 (5-15); BUN 17 mg/dL (7-18); BUN/Creat Ratio 15.6 RATIO (10-20); Calcium,Total 8.6 mg/dL (8.5-10.1); Chloride 107 mmol/L (98-107); Creatinine, Serum 1.09 mg/dL (0.55-1.02); EST Glomerular Filtration Rate 52 mL/min (>60); Est Glom Filt Rate - Afr Amer 63 mL/min (>60); Estimated Creatinine Clearance 35.27 ml/min; Globulin 3.3 g/dL (2.2-4.2); Glucose 125 mg/dL (74-106); Magnesium 2.1 mg/dL (1.6-2.6); Phosphorus 3.6 mg/dL (2.5-4.9); Potassium 4.2 mmol/L (3.5-5.1); Protein, Total 6.3 g/dL (6.4-8.2); Sodium Level 140 mmol/L (136-145)
[2022-04-09] MEDS: hydrALAZINE 25 MG Tablet PO ×3 (07:59→21:22)
[2022-04-09] MEDS: Aspirin 81 MG TAB.CHEW PO (08:00)
[2022-04-09] MEDS: Clopidogrel Bisulfate 75 MG Tablet PO (08:00)
[2022-04-09] MEDS: amLODIPine 10 MG Tablet PO (08:00)
[2022-04-09] MEDS: Famotidine 20 MG Tablet PO (08:00)
[2022-04-09] MEDS: Nystatin Powder 15gm Bottle 1 APPLIC TOPICAL ×2 (08:01→21:25)
[2022-04-09] MEDS: Petrolatum 33% Tube 1 APPLIC TOPICAL (08:01)
[2022-04-09] MEDS: Losartan Potassium 100 MG Tablet PO (08:04)
[2022-04-09] MEDS: Ascorbic Acid 500 MG Tablet PO (08:04)
[2022-04-09] MEDS: Iron Polysaccharide Complex 150 MG CAPSULE PO (08:05)
[2022-04-09] MEDS: Spironolactone 25 MG Tablet 12.5 MG PO (08:05)
[2022-04-09] MEDS: Arthritis Pain Compound 60 CLICK TUBE TOPICAL ×2 (08:06→21:23)
[2022-04-09] MEDS: Menthol/Lanolin/Calamine/Znox 113 GM Tube 1 APPLIC TOPICAL ×2 (08:06→21:25)
[2022-04-09] MEDS: Senna/Docusate Sodium 1 Tablet PO ×2 (09:22→21:22)
[2022-04-09] MEDS: Carvedilol 25 MG Tablet PO ×2 (09:22→17:39)
--- NOTE | 2022-04-09 13:36 | PCM.PROGNOTE ---
Subjective Subjective Afebrile VSS-blood pressure is mostly controlled with occasional systolic greater than 130. Maintaining appropriate oxygen saturation on RA Oral intake is good Discussed with nursing - no problems that need addressed Reviewed the PT/OT/ST notes Medication list reviewed. All lab today was personally reviewed. White blood cell count is normal and the hemoglobin is stable at 10.1. Platelets are increased at 460,000. Sodium is 140 and the potassium is 4.2. The BUN is 17 and the creatinine is 1.09 which is within her baseline. GFR is consistent with stage IIIa chronic renal failure. Phosphorus and magnesium are within normal limits and the LFTs are unremarkable. Maia denies pain, shortness of breath, cough, sore throat, chest pain, lightheadedness, nausea, abdominal pain, dysuria and calf pain. Objective Data Objective Data Vital Signs: Vital Signs Temp Pulse Resp BP Pulse Ox O2 Del Method O2 Flow Rate 98.1 F 60 16 148/51 H 97 Nasal Cannula 2 04/09/22 10:00 04/09/22 13:16 04/08/22 21:12 04/09/22 10:00 04/09/22 07:10 04/09/22 07:10 04/09/22 07:10 Oxygen Flow Rate (L/min) 2 Oxygen Delivery Method Nasal Cannula Weight: 181 lb 9.6 oz Body Mass Index (BMI) 33.4 Intake & Output: Intake and Output for Last 24 Hours 04/07/22 04/08/22 04/09/22 23:59 23:59 23:59 Intake Total 600 / 600 880 / 880 Output Total 300 / 300 Balance 600 / 600 580 / 580 Lab / Micro Data Result Diagrams: 04/09/22 05:31 04/09/22 05:31 Labs: Laboratory Results - last 24 hr 04/09/22 05:31: WBC 7.0, RBC 3.20 L, Hgb 10.1 L, Hct 30.9 L, MCV 96.6, MCH 31.6, MCHC 32.7 D, RDW Std Deviation 52.2 H, RDW Coeff of Xochilt 14.6, Plt Count 460 H, MPV 10.2 04/09/22 05:31: Sodium 140, Potassium 4.2, Chloride 107, Carbon Dioxide 29.0, Anion Gap 4 L, BUN 17, Creatinine 1.09 H, Estim Creat Clear Calc 35.27, Est GFR (MDRD) Af Amer 63, Est GFR (MDRD) Non-Af 52 L, BUN/Creatinine Ratio 15.6, Glucose 125 H, Calcium 8.6, Phosphorus 3.6, Magnesium 2.1, Total Bilirubin 0.40, AST 17, ALT 16, Alkaline Phosphatase 64, Total Protein 6.3 L, Albumin 3.0 L, Globulin 3.3, Albumin/Globulin Ratio 0.9 Physical Exam Const alert Constitutional Narrative: Oriented to person, month, year, state. Can not tell me what city she is in. [place]. General Appearance: cooperative Orientation / Consciousness: Negative for confused HEENT moist oral mucous membranes Eyes PERRL and EOMs intact bilaterally Neck supple and No nodes General: trachea midline Resp normal respiratory effort, normal air movement and clear to auscultation bilaterally Effort and Inspection: Negative for tachypneic or labored Cardio regular rate, regular rhythm, no rub and no gallops Cardio Narrative: 3/6 holosystolic murmur at the second right intercostal space with radiation to the left ventricular outflow tract, lower left sternal border, apex and into the carotids. There is also a soft systolic murmur present at the mitral listening post. GI normal to inspection, nondistended, normoactive bowel sounds, soft to palpation and non-tender GI Narrative: No guarding with palpation. Denies diarrhea and constipation. Extremity no calf tenderness General Extremity: Negative for edema Skin no jaundice General Skin Exam: no breakdown Rashes: no rashes Neuro CN's II-XII intact bilaterally Neuro Narrative: She has some weakness in the right upper extremity but her range of motion is severely limited by the osteoarthritis/pain in her right shoulder. She was able to hold her arm up at approximately 45 degrees for 10 seconds with no drift. Coordination / Balance: [id number] test normal and [id number] test normal Speech: speech normal Psych thought process normal, cooperative, affect normal, denies homicidal ideation and denies suicidal ideation Appearance: appropriate Thought Content: No suicidality and No homicidality Assessment & Plan Assessment/Plan (1) Physical debility: (2) Acute left KASEY ischemic stroke: (3) History of placement of stent in LAD coronary artery: (4) History of right coronary artery stent placement: (5) S/P angioplasty with stent: (6) Hypertension: (7) Coronary artery disease: (8) Chronic obstructive pulmonary disease: (9) Hyperlipidemia, unspecified: (10) Left acute arterial ischemic stroke, MCA (middle cerebral artery): (11) Normochromic normocytic anemia: (12) Right hemiparesis: (13) Severe aortic stenosis: (14) Paroxysmal A-fib: PLAN: Plan 1. Continue therapy 2. No changes to the drug regimen today. 3. Continue to monitor blood pressure closely. Charges/Coding Visit Charges Inpatient E&M: 00167 Subs Hosp L2
--- NOTE | 2022-04-09 18:42 | NURSING ---
pt walked w/ therapy and maintained o2 levels at 94-95% on RA
[2022-04-09] MEDS: Atorvastatin Calcium 80 MG Tablet PO (21:22)
[2022-04-10 04:49] VITALS: BP 143/42; PULSE 60
[2022-04-10] MEDS: hydrALAZINE 25 MG Tablet PO ×2 (04:49→14:11)
[2022-04-10 07:31] VITALS: BP 143/40; PULSE 59; RESP 18; TEMP 36.6; O2SAT 99
[2022-04-10] MEDS: Menthol/Lanolin/Calamine/Znox 113 GM Tube 1 APPLIC TOPICAL ×2 (08:37→20:37)
[2022-04-10] MEDS: Nystatin Powder 15gm Bottle 1 APPLIC TOPICAL ×2 (08:39→20:36)
[2022-04-10] MEDS: Arthritis Pain Compound 60 CLICK TUBE TOPICAL ×2 (08:40→20:31)
[2022-04-10] MEDS: Famotidine 20 MG Tablet PO (08:47)
[2022-04-10] MEDS: Spironolactone 25 MG Tablet 12.5 MG PO (08:47)
[2022-04-10] MEDS: Senna/Docusate Sodium 1 Tablet PO ×2 (08:47→20:31)
[2022-04-10] MEDS: Clopidogrel Bisulfate 75 MG Tablet PO (08:47)
[2022-04-10] MEDS: Aspirin 81 MG TAB.CHEW PO (08:47)
[2022-04-10] MEDS: Iron Polysaccharide Complex 150 MG CAPSULE PO (08:47)
[2022-04-10] MEDS: amLODIPine 10 MG Tablet PO (08:47)
[2022-04-10] MEDS: Losartan Potassium 100 MG Tablet PO (08:47)
[2022-04-10] MEDS: Ascorbic Acid 500 MG Tablet PO (08:47)
[2022-04-10] MEDS: Carvedilol 25 MG Tablet PO ×2 (08:47→16:53)
[2022-04-10 14:11] VITALS: PULSE 54
[2022-04-10 20:11] VITALS: PULSE 54; RESP 16; TEMP 36.7; O2SAT 96
[2022-04-10 20:13] VITALS: PULSE 54
[2022-04-10] MEDS: Atorvastatin Calcium 80 MG Tablet PO (20:31)
[2022-04-10 20:33] VITALS: BP 94/56; PULSE 59
[2022-04-11] VITALS (7 sets, daily range): BP systolic 124–134; BP diastolic 38–54; PULSE 58–76; RESP 16; TEMP 36.4–36.9; O2SAT 99–100
[2022-04-11] MEDS: hydrALAZINE 25 MG Tablet PO ×3 (05:35→20:47)
[2022-04-11] MEDS: Arthritis Pain Compound 60 CLICK TUBE TOPICAL ×2 (08:12→20:46)
[2022-04-11] MEDS: Menthol/Lanolin/Calamine/Znox 113 GM Tube 1 APPLIC TOPICAL ×2 (08:12→20:46)
[2022-04-11] MEDS: Clopidogrel Bisulfate 75 MG Tablet PO (08:14)
[2022-04-11] MEDS: Senna/Docusate Sodium 1 Tablet PO ×2 (08:15→20:48)
[2022-04-11] MEDS: amLODIPine 10 MG Tablet PO (08:15)
[2022-04-11] MEDS: Famotidine 20 MG Tablet PO (08:15)
[2022-04-11] MEDS: Spironolactone 25 MG Tablet 12.5 MG PO (08:15)
[2022-04-11] MEDS: Iron Polysaccharide Complex 150 MG CAPSULE PO (08:15)
[2022-04-11] MEDS: Carvedilol 25 MG Tablet PO ×2 (08:16→17:06)
[2022-04-11] MEDS: Ascorbic Acid 500 MG Tablet PO (08:16)
[2022-04-11] MEDS: Aspirin 81 MG TAB.CHEW PO (08:16)
[2022-04-11] MEDS: Losartan Potassium 100 MG Tablet PO (08:16)
[2022-04-11] MEDS: Acetaminophen 500 MG Tablet 1000 MG PO (15:06)
[2022-04-11] MEDS: Nystatin Powder 15gm Bottle 1 APPLIC TOPICAL (20:46)
[2022-04-11] MEDS: Atorvastatin Calcium 80 MG Tablet PO (20:47)
[2022-04-12 05:08] VITALS: BP 145/40; PULSE 56
[2022-04-12] MEDS: hydrALAZINE 25 MG Tablet PO ×3 (05:08→21:08)
[2022-04-12] MEDS: Spironolactone 25 MG Tablet 12.5 MG PO (08:18)
[2022-04-12] MEDS: Nystatin Powder 15gm Bottle 1 APPLIC TOPICAL ×2 (08:19→21:09)
[2022-04-12] MEDS: Senna/Docusate Sodium 1 Tablet PO ×2 (08:19→21:10)
[2022-04-12] MEDS: Losartan Potassium 100 MG Tablet PO (08:19)
[2022-04-12] MEDS: Clopidogrel Bisulfate 75 MG Tablet PO (08:19)
[2022-04-12] MEDS: Ascorbic Acid 500 MG Tablet PO (08:19)
[2022-04-12] MEDS: amLODIPine 10 MG Tablet PO (08:19)
[2022-04-12] MEDS: Aspirin 81 MG TAB.CHEW PO (08:19)
[2022-04-12] MEDS: Famotidine 20 MG Tablet PO (08:19)
[2022-04-12] MEDS: Menthol/Lanolin/Calamine/Znox 113 GM Tube 1 APPLIC TOPICAL ×2 (08:20→21:08)
[2022-04-12] MEDS: Carvedilol 25 MG Tablet PO (08:20)
[2022-04-12] MEDS: Arthritis Pain Compound 60 CLICK TUBE TOPICAL ×2 (08:20→21:07)
[2022-04-12] MEDS: Iron Polysaccharide Complex 150 MG CAPSULE PO (08:20)
[2022-04-12 10:00] VITALS: BP 145/40; PULSE 56; RESP 18; TEMP 36.4; O2SAT 96
--- NOTE | 2022-04-12 12:51 | CASEMGMT ---
Social Work IDT met with patient and brother via conference call for Team meeting. Discussed patient's progress in PT/OT/ST/SN. Educated to Medicare approval of 11 days with EDC 04/18. Pt's goal is to return home with brother and son assistance. Offered HHC vs OP. Both prefer HHC. SW offered skilled HHC list. Brother to review. Sent provider list via [employer] link. No DME needs. Family can transport. Plan: DC home 04/18, HHC PT/OT/SN. Karol Encinas, TALENT DEVELOPMENT COORDINATOR PREANALYTICS TEAM LEAD
[2022-04-12 14:46] VITALS: BP 135/51; PULSE 54
--- NOTE | 2022-04-12 15:07 | PN_ITS ---
Subjective Subjective Maia was seen on team rounds today. Her brother Marbin participated by phone. Afebrile VSS - she is tilt + today and c/o lightheadedness with standing. Maintaining appropriate oxygen saturation on RA Oral fluid intake is poor Discussed with nursing - no problems that need addressed Reviewed the PT/OT/ST notes Medication list reviewed. Antihypertensives include amlodipine 10 mg daily, carvedilol 25 mg twice daily, hydralazine 25 mg 3 times daily and she is also on Aldactone 12.5 mg. HR is usually in the 50's to low 60's, even with exertion. She has been in NSR every time I have examined her since she arrived on rehab. She complains of R shoulder pain and also of dizziness with standing. She denie s CP, SOB, cough, sore throat, dysuria, calf pain. Objective Data Objective Data Vital Signs: Vital Signs Temp Pulse Resp BP Pulse Ox O2 Del Method O2 Flow Rate 97.5 F L 54 L 18 135/51 H 96 Room Air 2 04/12/22 10:00 04/12/22 14:46 04/12/22 10:00 04/12/22 14:46 04/12/22 10:00 04/12/22 11:30 04/11/22 19:55 Oxygen Flow Rate (L/min) 2 Oxygen Delivery Method Room Air Weight: 181 lb 9.6 oz Body Mass Index (BMI) 33.4 Intake & Output: Intake and Output for Last 24 Hours 04/10/22 04/11/22 04/12/22 23:59 23:59 23:59 Intake Total 1500 / 1500 600 / 600 200 / 200 Output Total 2300 / 2300 1000 / 1000 800 / 800 Balance -800 / -800 -400 / -400 -600 / -600 Lab / Micro Data Result Diagrams: 04/09/22 05:31 04/09/22 05:31 Physical Exam Const alert General Appearance: cooperative Resp normal respiratory effort, normal air movement and clear to auscultation bilaterally Effort and Inspection: Negative for tachypneic or labored Cardio regular rate, regular rhythm and no gallops Cardio Narrative: 3/6 holosystolic murmur at the second right intercostal space with radiation to the left ventricular outflow tract, lower left sternal border, apex and into the carotids. There is also a soft systolic murmur present at the mitral listening post. GI normal to inspection, nondistended, normoactive bowel sounds, soft to palpation and non-tender Extremity no calf tenderness Extremity Narrative: Decreased ROM in the R shoulder. Has had previous surgery on the shoulder. Painful extension and Abduction......with limited motion. General Extremity: Negative for clubbing or edema Skin no jaundice General Skin Exam: no breakdown Rashes: no rashes Neuro CN's II-XII intact bilaterally Speech: speech normal Psych cooperative and affect normal Assessment & Plan Assessment/Plan (1) Physical debility: (2) Acute left KASEY ischemic stroke: (3) Hypertension: (4) Coronary artery disease: (5) Left acute arterial ischemic stroke, MCA (middle cerebral artery): (6) Normochromic normocytic anemia: (7) Right hemiparesis: (8) Right shoulder pain: PLAN: Plan 1. Continue therapy 2. Plan discharge on of this week home with home health care 3. Decrease the carvedilol to 18.75 mg twice daily and decrease Cozaar to 50 mg daily. Encourage increased fluid intake. Will recheck orthostatics in the AM. The right shoulder was cleansed with Betadine and allowed to dry. The skin was anesthetized with topical freezing agent. Using sterile technique a 22-gauge needle was used to inject 40 mg of Kenalog +2 cc of 0.5% Marcaine via a posterior approach. The patient tolerated the procedure well and a bandaid was applied to the puncture site. She was rechecked after 15 minutes and the pain with motion had improved. Charges/Coding Procedures Musculoskeletal [id number]: Other Procedure See Report (Injection R shoulder joint for OA with pain and decreased ROM. 40 mg Kenalog and 2 cc Marcaine 0.5%)
[2022-04-12 16:25] VITALS: O2SAT 95
[2022-04-12] MEDS: Triamcinolone Acetonide 40 MG/ML Vial INTRAARTIC (16:33)
[2022-04-12] MEDS: Bupivacaine 0.5% PF 10 ML VIAL INFILT (16:34)
[2022-04-12] MEDS: Carvedilol 12.5 MG Tablet 18.75 MG PO (18:47)
[2022-04-12 21:08] VITALS: PULSE 62
[2022-04-12] MEDS: Atorvastatin Calcium 80 MG Tablet PO (21:08)
[2022-04-12 22:00] VITALS: BP 111/71; PULSE 62; RESP 16; TEMP 36.3; O2SAT 96; O2SAT 97
[2022-04-13] VITALS (12 sets, daily range): BP systolic 96–168; BP diastolic 21–66; PULSE 49–68; RESP 15–16; TEMP 36.2–36.9; O2SAT 95–100
[2022-04-13] MEDS: Acetaminophen 500 MG Tablet 1000 MG PO (03:46)
[2022-04-13] MEDS: hydrALAZINE 25 MG Tablet PO ×3 (05:33→21:39)
[2022-04-13 06:33] LABS: Anion Gap 6 (5-15); BUN 31 mg/dL (7-18); BUN/Creat Ratio 29.8 RATIO (10-20); Calcium,Total 8.8 mg/dL (8.5-10.1); Chloride 105 mmol/L (98-107); Creatinine, Serum 1.04 mg/dL (0.55-1.02); EST Glomerular Filtration Rate 55 mL/min (>60); Est Glom Filt Rate - Afr Amer 66 mL/min (>60); Estimated Creatinine Clearance 36.97 ml/min; Glucose 138 mg/dL (74-106); Potassium 4.7 mmol/L (3.5-5.1); Sodium Level 137 mmol/L (136-145)
--- NOTE | 2022-04-13 07:40 | NURSING ---
Pt refused TEDs this a.m. Pt squirmed and kicked feet away, shaking her head as she motioned toward the TEDs.
[2022-04-13] MEDS: Senna/Docusate Sodium 1 Tablet PO ×2 (08:32→21:38)
[2022-04-13] MEDS: Clopidogrel Bisulfate 75 MG Tablet PO (08:32)
[2022-04-13] MEDS: Arthritis Pain Compound 60 CLICK TUBE TOPICAL ×2 (08:32→21:39)
[2022-04-13] MEDS: Ascorbic Acid 500 MG Tablet PO (08:32)
[2022-04-13] MEDS: Iron Polysaccharide Complex 150 MG CAPSULE PO (08:32)
[2022-04-13] MEDS: Menthol/Lanolin/Calamine/Znox 113 GM Tube 1 APPLIC TOPICAL ×2 (08:33→21:42)
[2022-04-13] MEDS: Famotidine 20 MG Tablet PO (08:33)
[2022-04-13] MEDS: Aspirin 81 MG TAB.CHEW PO (08:33)
--- NOTE | 2022-04-13 09:19 | NURSING ---
Notified Dr. Lanier of pts BP's, per Dr Lanier give BP meds
[2022-04-13] MEDS: amLODIPine 10 MG Tablet PO (09:20)
[2022-04-13] MEDS: Spironolactone 25 MG Tablet 12.5 MG PO (09:21)
[2022-04-13] MEDS: Carvedilol 12.5 MG Tablet 18.75 MG PO ×2 (09:21→16:48)
[2022-04-13] MEDS: Losartan Potassium 50 MG Tablet PO (09:22)
[2022-04-13] MEDS: Nystatin Powder 15gm Bottle 1 APPLIC TOPICAL ×2 (09:22→21:42)
--- NOTE | 2022-04-13 10:32 | PN_ITS ---
Subjective Subjective Afebrile VSS-orthostatics were negative today. There is a difference in BP between the arms. I suspect she may have subclavian stenosis. Will get a copy of the CTA done at [facility]. Pulse does not increase when going from sitting to standing. She is on a beta stewart. Maintaining appropriate oxygen saturation on RA Oral intake is good for food and not so good for fluids. She took only 720 p.o. yesterday and put out 800 for fluid balance of -80 despite being encouraged to increase fluid intake. Discussed with nursing - She complained of being dizzy again this AM.....It last about 20 minutes and the PT had her sit and drink some fluids. Reviewed the PT/OT/ST notes Medication list reviewed. Coreg and Cozaar were decreased yesterday due to low BP when standing. Maia tells me that she has vertigo, tinnitus and hearing loss. She has never been diagnosed with Meniere's disease. She is on Aldactone. Maia denies chest pain, shortness of breath, cough, sore throat, palpitations, nausea/vomiting, abdominal pain, dysuria and calf pain. Objective Data Objective Data Vital Signs: Vital Signs Temp Pulse Resp BP Pulse Ox O2 Del Method O2 Flow Rate 97.1 F L 66 16 137/63 H 95 Nasal Cannula 2 04/13/22 07:57 04/13/22 09:12 04/13/22 07:57 04/13/22 09:12 04/13/22 07:57 04/13/22 07:57 04/13/22 07:57 Oxygen Flow Rate (L/min) 2 Oxygen Delivery Method Nasal Cannula Weight: 181 lb 9.6 oz Body Mass Index (BMI) 33.4 Intake & Output: Intake and Output for Last 24 Hours 04/11/22 04/12/22 04/13/22 23:59 23:59 23:59 Intake Total 600 / 600 720 / 960 720 / 720 Output Total 1000 / 1000 800 / 1300 800 / 800 Balance -400 / -400 -80 / -340 -80 / -80 Lab / Micro Data Result Diagrams: 04/09/22 05:31 04/13/22 05:21 Labs: Laboratory Results - last 24 hr 04/13/22 05:21: Sodium 137, Potassium 4.7, Chloride 105, Carbon Dioxide 26.0, Anion Gap 6, BUN 31 H, Creatinine 1.04 H, Estim Creat Clear Calc 36.97, Est GFR (MDRD) Af Amer 66, Est GFR (MDRD) Non-Af 55 L, BUN/Creatinine Ratio 29.8 H, Glucose 138 H, Calcium 8.8 Physical Exam Const alert General Appearance: cooperative Orientation / Consciousness: Negative for confused Resp normal respiratory effort and clear to auscultation bilaterally Cardio regular rate, regular rhythm and no gallops Cardio Narrative: 3/6 holosystolic murmur at the second right intercostal space with radiation to the left ventricular outflow tract, lower left sternal border, apex and into the carotids. There is also a soft systolic murmur present at the mitral listening post. GI normal to inspection, nondistended, normoactive bowel sounds, soft to palpation and non-tender GI Narrative: No guarding with palpation. Denies diarrhea and constipation. Extremity no calf tenderness General Extremity: Negative for edema Skin General Skin Exam: no breakdown Rashes: no rashes Psych thought process normal, cooperative and affect normal Appearance: appropriate Assessment & Plan Assessment/Plan (1) Physical debility: (2) Acute left KASEY ischemic stroke: (3) Hypertension: (4) Coronary artery disease: (5) Left acute arterial ischemic stroke, MCA (middle cerebral artery): (6) Normochromic normocytic anemia: (7) Right hemiparesis: (8) Right shoulder pain: (9) Menieres disease: (10) Dehydration, mild: PLAN: Plan 1. Continue therapy 2. Continue to encourage increased fluid intake and would like her to take at least 1200 cc daily. 3. Obtain copy of CTA of the head and neck done at [facility] because I believe there was mention of subclavian stenosis on that report which we are not in possession of at this time 4. Continue to monitor blood pressure closely since Coreg and Cozaar were both decreased. 5. Start Antivert 12.5 mg p.o. 3 times daily as needed vertigo/dizziness. Patient was made aware to request Antivert if she once again has dizziness/vertigo. Charges/Coding Visit Charges Inpatient E&M: 33440 Subs Hosp L2
[2022-04-13] MEDS: Meclizine 12.5 MG Tablet PO (11:40)
--- NOTE | 2022-04-13 12:35 | NURSING ---
Request for CTA records faxed to [facility]
[2022-04-13] MEDS: Atorvastatin Calcium 80 MG Tablet PO (21:39)
[2022-04-14] VITALS (7 sets, daily range): BP systolic 130–138; BP diastolic 46–56; PULSE 59–73; RESP 16; TEMP 36.7–36.8; O2SAT 98–100
[2022-04-14] MEDS: hydrALAZINE 25 MG Tablet PO ×3 (05:17→19:57)
[2022-04-14] MEDS: Carvedilol 12.5 MG Tablet 18.75 MG PO ×2 (09:02→17:31)
[2022-04-14] MEDS: Famotidine 20 MG Tablet PO (09:02)
[2022-04-14] MEDS: Spironolactone 25 MG Tablet 12.5 MG PO (09:02)
[2022-04-14] MEDS: amLODIPine 10 MG Tablet PO (09:02)
[2022-04-14] MEDS: Iron Polysaccharide Complex 150 MG CAPSULE PO (09:02)
[2022-04-14] MEDS: Losartan Potassium 50 MG Tablet PO (09:02)
[2022-04-14] MEDS: Ascorbic Acid 500 MG Tablet PO (09:02)
[2022-04-14] MEDS: Aspirin 81 MG TAB.CHEW PO (09:03)
[2022-04-14] MEDS: Arthritis Pain Compound 60 CLICK TUBE TOPICAL ×2 (09:03→19:56)
[2022-04-14] MEDS: Clopidogrel Bisulfate 75 MG Tablet PO (09:03)
[2022-04-14] MEDS: Nystatin Powder 15gm Bottle 1 APPLIC TOPICAL ×2 (09:06→19:59)
[2022-04-14] MEDS: Menthol/Lanolin/Calamine/Znox 113 GM Tube 1 APPLIC TOPICAL ×2 (09:06→19:59)
--- NOTE | 2022-04-14 17:01 | PCM.DC ---
Discharge Instructions Diet Discharge Diet: Carb Control Diet and - (Low fat and low salt.) Activity Discharge Activity: May Not Drive, May Shower and Use Walker Weight Bearing Status: Full weight bearing Keep extremity elevated above heart level: Legs Dressing / Incision Call your doctor if you observe: Fever of 101 or Higher, Inability to urinate, Inability to have a bowel movement, Shortness of breath, Dizziness, Fainting spells, Swelling in the ankles, Chest pain, Increased palpitations (irregular heartbeat) and Calf discomfort Follow Up Care Test Results: Test results from this visit will be discussed in further detail at your follow-up appointment, if applicable. Pending Tests Upon Discharge: none Discharge Plan Admission Admit Date/Time: 04/08/22 10:13 Primary Reason for Your Visit: post stroke debility Attending Provider: Isis Lanier Instructions Patient Instructions: Discharge Instructions for Stroke Additional Instructions / Restrictions: 1. You are a very evin lady to have survived everything that happened to you in the past month. In order to prevent strokes and heart attacks in the future you need to make sure your BP stays under 130/80, your LDL cholesterol (bad cholesterol) stays under 70 and your HGBA1C is under 7. The HGBA1C is a test for diabetes. You are borderline diabetic and if you can keep your weight down and exercise you may never develop diabetes. Do NOT eat a high carb diet.......this means avoid pasta, rice, cookies, cakes, bread, white potatoes, large amounts of fruits. Eat carbs in moderation.....do not eat a bunch at one time. 2. You now have 4 stents in the arteries in your heart.......these can clog up if you don't eat a healthy diet and get some exercise every day. NO smoking.......do not spend time around others who are smoking because second hand smoke is bad for you too. You also have a stent in the Left carotid artery. 3. You will need to have the aortic valve in your heart fixed at some point. You can discuss this with the keller machine operator at your next visit. 4. When you have stents you need to stay on 2 antiplatelet drugs for a year to prevent the stents from closing up. You will be taking 1 baby aspirin a day and also Plavix 75 mg daily........never run out of these drugs. 5. You had atrial fibrillation when you first went to [facility] in [place] with the heart attack. you have not had any atrial fibrillation while you are in rehab. The atiral fibrillation (AFIB) may have been due to the lack of blood flow and oxygen to your hear. AFIB is a risk factor for strokes and generally people with AFIB are on an anticoagulant. Your keller machine operator will discuss this with you. 6. If you or your family have any questions after you leave rehab please do not hesitate to call me. OFFICE: [phone] CELL: [phone] Discharge Orders/Prescriptions Prescriptions: New losartan 50 mg Tablet 50 mg PO DAILY Qty: 30 0RF carvedilol 12.5 mg Tablet 18.75 mg PO BIDCM Qty: 90 0RF Rx Instructions: 1 and 1/2 tab two times a day meclizine 12.5 mg Tablet 12.5 mg PO TID PRN PRN (Reason: vertigo/dizziness) Qty: 20 0RF Rx Instructions: Take 1 tablet up to 3 times daily for vertigo/dizziness diclofenac sodium [Voltaren Arthritis Pain] 1 % gel 4 g topical BID PRN PRN (Reason: joint pain) Qty: 200 0RF Rx Instructions: apply to painful joint 2 times a day as needed for pain. Continued aspirin 81 mg Tablet,Chewable 81 mg PO DAILY acetaminophen 500 mg Tablet 1,000 mg PO Q6H PRN PRN (Reason: Pain Score 1-10) Qty: 0 0RF ascorbic acid (vitamin C) 500 mg tablet 500 mg PO BREAKFAST atorvastatin 80 mg tablet 80 mg PO QHS Qty: 30 0RF polyethylene glycol 3350 17 gram powder in packet 17 g PO DAILY Qty: 30 0RF polysaccharide iron complex [Ferrex 150] 150 mg iron capsule 150 mg PO DAILY Qty: 30 0RF Rx Instructions: take the vitamin C(ascorbic acid) and the iron tab together with a meal. sennosides-docusate sodium [Stool Softener-Stimulant Laxat] 8.6-50 mg tablet 1 tab PO BID Qty: 120 0RF hydralazine 25 mg tablet 25 mg PO TID Qty: 90 0RF clopidogrel [Plavix] 75 mg Tablet 75 mg PO DAILY Qty: 30 0RF spironolactone 25 mg tablet 12.5 mg PO DAILY Qty: 15 0RF Rx Instructions: 1/2 tab daily famotidine 20 mg tablet 20 mg PO DAILY Qty: 30 0RF amlodipine 10 mg tablet 10 mg PO DAILY Qty: 30 0RF Discontinued magnesium hydroxide 400 mg/5 mL Suspension 30 ml PO X1 PRN (Reason: Constipation) Qty: 0 0RF Arthritis Pain Compound 2 click topical BID carvedilol 25 mg tablet 25 mg PO BIDCM nystatin [Nyamyc] 100,000 unit/gram powder 1 applic topical BID losartan 100 mg tablet 100 mg PO DAILY menthol-zinc oxide [Calmoseptine] 0.44-20.6 % ointment 1 applic topical 1000,2200 Protocol: *Topical Application Instructions APPLICATION INSTRUCTIONS: bilat buttocks Petrolatum 33% [Eucerin Eqivalent] 1 applic topical BID PRN Referrals / Follow Up: Jeimy Ventura-Cardiovascular Surgeon [Other] - 04/28/22 1:00 pm Kelly Sherwood-PCP [Other] - 05/13/22 9:30 am Disposition Disposition (needs filled in before D/C Order can be placed): Home, Self Care
[2022-04-14] MEDS: Atorvastatin Calcium 80 MG Tablet PO (19:56)
[2022-04-14] MEDS: Senna/Docusate Sodium 1 Tablet PO (19:57)
[2022-04-15] VITALS (7 sets, daily range): BP systolic 125–149; BP diastolic 45–63; PULSE 61–67; RESP 15–16; TEMP 35.8–37.2; O2SAT 98–99
[2022-04-15] MEDS: hydrALAZINE 25 MG Tablet PO ×3 (05:15→20:59)
[2022-04-15] MEDS: Senna/Docusate Sodium 1 Tablet PO ×2 (08:10→21:01)
[2022-04-15] MEDS: Carvedilol 12.5 MG Tablet 18.75 MG PO ×2 (08:11→17:24)
[2022-04-15] MEDS: Spironolactone 25 MG Tablet 12.5 MG PO (08:11)
[2022-04-15] MEDS: Losartan Potassium 50 MG Tablet PO (08:11)
[2022-04-15] MEDS: amLODIPine 10 MG Tablet PO (08:11)
[2022-04-15] MEDS: Aspirin 81 MG TAB.CHEW PO (08:11)
[2022-04-15] MEDS: Famotidine 20 MG Tablet PO (08:11)
[2022-04-15] MEDS: Clopidogrel Bisulfate 75 MG Tablet PO (08:11)
[2022-04-15] MEDS: Ascorbic Acid 500 MG Tablet PO (08:11)
[2022-04-15] MEDS: Iron Polysaccharide Complex 150 MG CAPSULE PO (08:11)
[2022-04-15] MEDS: Arthritis Pain Compound 60 CLICK TUBE TOPICAL ×2 (08:12→20:52)
[2022-04-15] MEDS: Nystatin Powder 15gm Bottle 1 APPLIC TOPICAL ×2 (08:14→21:00)
[2022-04-15] MEDS: Menthol/Lanolin/Calamine/Znox 113 GM Tube 1 APPLIC TOPICAL ×2 (08:15→20:52)
[2022-04-15] MEDS: Meclizine 12.5 MG Tablet PO (11:09)
--- NOTE | 2022-04-15 11:44 | CASEMGMT ---
Addendum entered by Karol Encinas 04/16/22 16:17: [facility] can accept pt, however, pt does not have a PCP and does not prefer to establish with a Dr in [place]. MUNIR spoke with brother about a PCP of choice and he provided [facility]. MUNIR scheduled appt with a provider for 05/13 and confirmed that provider will not sign HHC orders until the pt is seen in the office. SW spoke with pt about above information and offered outpatient therapy. Pt agreeable. SW spoke with brother about outpatient therapy centers. Brother has no preference. SW located [facility] outpatient rehab center. Left a voicemail. SW added the contact information in pt's DC paperwork and will follow up the following business day. Nursing updated. Plan: DC home 04/18 with outpatient PT/OT Addendum entered by Karol Encinas 04/16/22 10:49: [facility] is out of service area. SW referred to the remaining 6 providers list in [facility] that can service area. SW to continue to follow. Addendum entered by Karol Encinas 04/16/22 08:26: Followed up with brother. Brother requesting [facility]. Phoned referral for PT/OT/SN Original Note: Social Work Followed up with brother on HHC selection. Brother requesting list be resent. SW resent link via [employer]. MARC Bernard
[2022-04-15] MEDS: Acetaminophen 500 MG Tablet 1000 MG PO (15:06)
[2022-04-15] MEDS: Atorvastatin Calcium 80 MG Tablet PO (20:53)
[2022-04-16] VITALS (7 sets, daily range): BP systolic 117–139; BP diastolic 49–89; PULSE 56–64; RESP 15–19; TEMP 36.3–36.4; O2SAT 95–99
[2022-04-16] MEDS: hydrALAZINE 25 MG Tablet PO ×3 (06:27→20:53)
[2022-04-16] MEDS: Carvedilol 12.5 MG Tablet 18.75 MG PO ×2 (08:53→17:22)
[2022-04-16] MEDS: Menthol/Lanolin/Calamine/Znox 113 GM Tube 1 APPLIC TOPICAL (08:53)
[2022-04-16] MEDS: Nystatin Powder 15gm Bottle 1 APPLIC TOPICAL ×2 (08:53→20:58)
[2022-04-16] MEDS: Clopidogrel Bisulfate 75 MG Tablet PO (08:54)
[2022-04-16] MEDS: Senna/Docusate Sodium 1 Tablet PO ×2 (08:54→20:53)
[2022-04-16] MEDS: Aspirin 81 MG TAB.CHEW PO (08:54)
[2022-04-16] MEDS: Ascorbic Acid 500 MG Tablet PO (08:54)
[2022-04-16] MEDS: amLODIPine 10 MG Tablet PO (08:54)
[2022-04-16] MEDS: Famotidine 20 MG Tablet PO (08:54)
[2022-04-16] MEDS: Spironolactone 25 MG Tablet 12.5 MG PO (08:54)
[2022-04-16] MEDS: Arthritis Pain Compound 60 CLICK TUBE TOPICAL ×2 (08:55→20:52)
[2022-04-16] MEDS: Losartan Potassium 50 MG Tablet PO (08:55)
[2022-04-16] MEDS: Iron Polysaccharide Complex 150 MG CAPSULE PO (08:55)
[2022-04-16] MEDS: Meclizine 12.5 MG Tablet PO (11:23)
[2022-04-16] MEDS: Magnesium Hydroxide 30 ML UDC PO (17:22)
--- NOTE | 2022-04-16 19:30 | NURSING ---
Addendum entered by Ruth Ching 04/17/22 07:26: late entry: [address] note should also [address]. Yip updated on EKG, and also new order for soap suds enema. Addendum entered by Ruth Ching 04/17/22 01:19: Pt resting in bed, sleeping on right side. Addendum entered by Ruth Ching 04/17/22 01:18: 2255: Pt up to [facility] after enema given, had xlarge results of dark green/black formed stool. Back to bed, states she feels somewhat better, but c/o pain in her rt shoulder and throat. Agreeable to take Tylenol, will administer. Addendum entered by Ruth Ching 04/16/22 20:08: Dr. Yip updated on pt condition and vitals, new order for Maalox, covid swab and resp panel. Addendum entered by Ruth Ching 04/16/22 19:43: RT here to perform EKG. Addendum entered by Ruth Ching 04/16/22 19:43: !(36 Vitals and assessment completed, pt c/o nausea at this time, continues to rub chest at times. Original Note: Pt called out, stating she doesn't feel good, upon assessment, pt rubbing chest, stating it hurts, vague with responses, denies N/T shortness of breath, states that it hurts from my nose to my chest. RT called to do EKG.
[2022-04-16] MEDS: Bisacodyl 10 MG Suppository RC (19:50)
--- NOTE | 2022-04-16 20:16 | EKG12_ITS ---
Test Reason : DYSRHYTHMIA Blood Pressure : / mmHG Vent. Rate : 062 BPM Atrial Rate : 062 BPM P-R Int : 142 ms QRS Dur : 092 ms QT Int : 416 ms P-R-T Axes : 077 -37 101 degrees QTc Int : 422 ms Normal sinus rhythm Left axis deviation Nonspecific ST and T wave abnormality Abnormal ECG When compared with ECG of 06-APR-2022 15:30, Criteria for Septal infarct are no longer Present Nonspecific T wave abnormality now evident in Inferior leads Confirmed by EMRE FREED MD ([id number]), subeditor CELSO PHIPPS ([id number]) on 04/20/2022 11:14:43 AM Referred By: CHRISTIAN Confirmed By:EMRE FREED MD
--- NOTE | 2022-04-16 20:21 | EX.DISCHREH ---
Providers Date of Admission: 04/08/22 Reason For Visit: CVA Diagnosis Discharge Diagnosis (1) Physical debility: Status: Acute Code(s): R53.81 - Other malaise (2) Acute left KASEY ischemic stroke: Status: Acute Code(s): I63.522 - Cerebral infarction due to unspecified occlusion or stenosis of left anterior cerebral artery (3) Hypertension: Status: Chronic Code(s): I10 - Essential (primary) hypertension (4) Coronary artery disease: Status: Acute Code(s): I25.10 - Atherosclerotic heart disease of [place] coronary artery without angina pectoris (5) Left acute arterial ischemic stroke, MCA (middle cerebral artery): Status: Acute Code(s): I63.512 - Cerebral infarction due to unspecified occlusion or stenosis of left middle cerebral artery (6) Normochromic normocytic anemia: Status: Acute Code(s): D64.9 - Anemia, unspecified (7) Right hemiparesis: Status: Acute Code(s): G81.91 - Hemiplegia, unspecified affecting right dominant side (8) Right shoulder pain: Status: Acute Code(s): M25.511 - Pain in right shoulder (9) 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 Code(s): H81.09 - Meniere's disease, unspecified ear (10) Dehydration, mild: Status: Acute Code(s): E86.0 - Dehydration Medications at Discharge Home Medications aspirin 81 mg chewable tablet 81 mg PO DAILY heart 03/10/22 acetaminophen 500 mg tablet 1,000 mg PO Q6H PRN PRN Pain Score 1-10 #0 tabs 04/07/22 ascorbic acid (vitamin C) 500 mg tablet 500 mg PO BREAKFAST Supplement 04/08/22 amlodipine 10 mg tablet 10 mg PO DAILY BP #30 tabs 04/14/22 atorvastatin 80 mg tablet 80 mg PO QHS Cholestrol #30 tabs 04/14/22 carvedilol 12.5 mg tablet 18.75 mg PO BIDCM #90 tabs 04/14/22 clopidogrel 75 mg tablet (Plavix) 75 mg PO DAILY blood thinner #30 tabs 04/14/22 diclofenac sodium 1 % topical gel (Voltaren Arthritis Pain) 4 g topical BID PRN PRN joint pain #200 grams 04/14/22 famotidine 20 mg tablet 20 mg PO DAILY GERD #30 tabs 04/14/22 hydralazine 25 mg tablet 25 mg PO TID BP #90 tabs 04/14/22 losartan 50 mg tablet 50 mg PO DAILY #30 tabs 04/14/22 meclizine 12.5 mg tablet 12.5 mg PO TID PRN PRN vertigo/dizziness #20 tabs 04/14/22 polyethylene glycol 3350 17 gram oral powder packet 17 g PO DAILY Constipation #30 packets 04/14/22 polysaccharide iron complex 150 mg iron capsule (Ferrex) 150 mg PO DAILY Supplement #30 caps 04/14/22 sennosides 8.6 mg-docusate sodium 50 mg tablet (Stool Softener-Stimulant Laxative) 1 tab PO BID Constipation #120 tabs 04/14/22 spironolactone 25 mg tablet 12.5 mg PO DAILY BP #15 tabs 04/14/22 Hospital Course Operations None Procedures None Summary of Care Provided Minutes Spent on Discharge: 30 Hospital Course: 76 year old female with past medical history significant for recent stroke, hospitalized for NSTEMI, PTCA with stent to RCA, then Left ICA angioplasty with stent, admitted to 04/08/2022 for 3 hours daily rehabilitation, strengthening, prior to discharge home. 04/12/2022 Dr. Lanier performed right subacromial bursa steroid injection for right shoulder pain. Discharge home alone 04/18/2022, with outpatient PT/OT. Weight / BMI Weight Weight: 80.1 kg Body Mass Index (BMI) 33.4 ABG / Lab / Microbiology Data Result Diagrams: 04/09/22 05:31 04/13/22 05:21 Indicators for Scoring Admitted with or Primary Diagnosis of CVA/Stroke: Yes Hx of CVA/Stroke: Yes Modified [place] Score MRS Score at time of Evaluation: 3-Moderate disability D/C Instructions Discharge Diet: Carb Control Diet and - (Low fat and low salt.) Discharge Activity: Return to Normal Activity, May Shower and Use Walker Weight Bearing Status: Full weight bearing Keep extremity elevated above heart level: Legs Call your doctor if you observe: Fever of 101 or Higher, Inability to urinate, Inability to have a bowel movement, Shortness of breath, Dizziness, Fainting spells, Swelling in the ankles, Chest pain, Increased palpitations (irregular heartbeat) and Calf discomfort Additional Instructions: Discharge home alone 04/18/2022, with outpatient PT/OT. Pending Tests Upon Discharge: none Meaningful Use Info Meaningful Use Diagnoses (Choose all that apply): AMI AMI/Post PCI/Angioplasty Aspirin given w/in 24hrs of arrival?: Yes ASA at discharge?: Yes Statins at discharge?: Yes Raulito/ARB at discharge?: Yes Beta Christiano at discharge?: Yes Done w/ Acute [place] measure.: Yes Discharge Plan Admission Admit Date/Time: 04/08/22 10:13 Primary Reason for Your Visit: post stroke debility Attending Provider: Isis Lanier Instructions Patient Instructions: Discharge Instructions for Stroke Additional Instructions / Restrictions: 1. You are a very evin lady to have survived everything that happened to you in the past month. In order to prevent strokes and heart attacks in the future you need to make sure your BP stays under 130/80, your LDL cholesterol (bad cholesterol) stays under 70 and your HGBA1C is under 7. The HGBA1C is a test for diabetes. You are borderline diabetic and if you can keep your weight down and exercise you may never develop diabetes. Do NOT eat a high carb diet.......this means avoid pasta, rice, cookies, cakes, bread, white potatoes, large amounts of fruits. Eat carbs in moderation.....do not eat a bunch at one time. 2. You now have 4 stents in the arteries in your heart.......these can clog up if you don't eat a healthy diet and get some exercise every day. NO smoking.......do not spend time around others who are smoking because second hand smoke is bad for you too. You also have a stent in the Left carotid artery. 3. You will need to have the aortic valve in your heart fixed at some point. You can discuss this with the logistics engineering manager at your next visit. 4. When you have stents you need to stay on 2 antiplatelet drugs for a year to prevent the stents from closing up. You will be taking 1 baby aspirin a day and also Plavix 75 mg daily........never run out of these drugs. 5. You had atrial fibrillation when you first went to [facility] in [place] with the heart attack. you have not had any atrial fibrillation while you are in rehab. The atiral fibrillation (AFIB) may have been due to the lack of blood flow and oxygen to your hear. AFIB is a risk factor for strokes and generally people with AFIB are on an anticoagulant. Your logistics engineering manager will discuss this with you. 6. Discharge Orders/Prescriptions Prescriptions: New losartan 50 mg Tablet 50 mg PO DAILY Qty: 30 0RF carvedilol 12.5 mg Tablet 18.75 mg PO BIDCM Qty: 90 0RF Rx Instructions: 1 and 1/2 tab two times a day meclizine 12.5 mg Tablet 12.5 mg PO TID PRN PRN (Reason: vertigo/dizziness) Qty: 20 0RF Rx Instructions: Take 1 tablet up to 3 times daily for vertigo/dizziness diclofenac sodium [Voltaren Arthritis Pain] 1 % gel 4 g topical BID PRN PRN (Reason: joint pain) Qty: 200 0RF Rx Instructions: apply to painful joint 2 times a day as needed for pain. Continued aspirin 81 mg Tablet,Chewable 81 mg PO DAILY acetaminophen 500 mg Tablet 1,000 mg PO Q6H PRN PRN (Reason: Pain Score 1-10) Qty: 0 0RF ascorbic acid (vitamin C) 500 mg tablet 500 mg PO BREAKFAST atorvastatin 80 mg tablet 80 mg PO QHS Qty: 30 0RF polyethylene glycol 3350 17 gram powder in packet 17 g PO DAILY Qty: 30 0RF polysaccharide iron complex [Ferrex 150] 150 mg iron capsule 150 mg PO DAILY Qty: 30 0RF Rx Instructions: take the vitamin C(ascorbic acid) and the iron tab together with a meal. sennosides-docusate sodium [Stool Softener-Stimulant Laxat] 8.6-50 mg tablet 1 tab PO BID Qty: 120 0RF hydralazine 25 mg tablet 25 mg PO TID Qty: 90 0RF clopidogrel [Plavix] 75 mg Tablet 75 mg PO DAILY Qty: 30 0RF spironolactone 25 mg tablet 12.5 mg PO DAILY Qty: 15 0RF Rx Instructions: 1/2 tab daily famotidine 20 mg tablet 20 mg PO DAILY Qty: 30 0RF amlodipine 10 mg tablet 10 mg PO DAILY Qty: 30 0RF Discontinued magnesium hydroxide 400 mg/5 mL Suspension 30 ml PO X1 PRN (Reason: Constipation) Qty: 0 0RF Arthritis Pain Compound 2 click topical BID carvedilol 25 mg tablet 25 mg PO BIDCM nystatin [Nyamyc] 100,000 unit/gram powder 1 applic topical BID losartan 100 mg tablet 100 mg PO DAILY menthol-zinc oxide [Calmoseptine] 0.44-20.6 % ointment 1 applic topical 1000,2200 Protocol: *Topical Application Instructions APPLICATION INSTRUCTIONS: bilat buttocks Petrolatum 33% [Eucerin Eqivalent] 1 applic topical BID PRN Referrals / Follow Up: Jeimy Ventura-Cardiovascular Surgeon [Other] - 04/28/22 1:00 pm Kelly Sherwood-PCP [Other] - 05/13/22 9:30 am Disposition Disposition (needs filled in before D/C Order can be placed): Home, Self Care
[2022-04-16] MEDS: Mag Hydrox/Al Hydrox/Simeth 30 ML UDC 15 ML PO (20:52)
[2022-04-16] MEDS: Atorvastatin Calcium 80 MG Tablet PO (20:54)
[2022-04-16] MEDS: Acetaminophen 500 MG Tablet 1000 MG PO (22:58)
[2022-04-17] VITALS (7 sets, daily range): BP systolic 107–146; BP diastolic 40–69; PULSE 55–72; RESP 18; TEMP 36.1–36.7; O2SAT 97–99
[2022-04-17] MEDS: Acetaminophen 500 MG Tablet 1000 MG PO ×2 (05:41→20:49)
[2022-04-17] MEDS: hydrALAZINE 25 MG Tablet PO ×3 (05:42→20:50)
[2022-04-17] MEDS: Losartan Potassium 50 MG Tablet PO (08:34)
[2022-04-17] MEDS: Senna/Docusate Sodium 1 Tablet PO ×2 (08:34→20:50)
[2022-04-17] MEDS: amLODIPine 10 MG Tablet PO (08:34)
[2022-04-17] MEDS: Famotidine 20 MG Tablet PO (08:35)
[2022-04-17] MEDS: Ascorbic Acid 500 MG Tablet PO (08:35)
[2022-04-17] MEDS: Spironolactone 25 MG Tablet 12.5 MG PO (08:35)
[2022-04-17] MEDS: Aspirin 81 MG TAB.CHEW PO (08:35)
[2022-04-17] MEDS: Iron Polysaccharide Complex 150 MG CAPSULE PO (08:35)
[2022-04-17] MEDS: Clopidogrel Bisulfate 75 MG Tablet PO (08:35)
[2022-04-17] MEDS: Carvedilol 12.5 MG Tablet 18.75 MG PO ×2 (08:35→16:51)
[2022-04-17] MEDS: Menthol/Lanolin/Calamine/Znox 113 GM Tube 1 APPLIC TOPICAL (08:36)
[2022-04-17] MEDS: Arthritis Pain Compound 60 CLICK TUBE TOPICAL ×2 (08:36→20:50)
[2022-04-17] MEDS: Nystatin Powder 15gm Bottle 1 APPLIC TOPICAL ×2 (08:37→20:51)
--- NOTE | 2022-04-17 09:56 | PCM.DC.SUM ---
Providers Date of Admission: 04/08/22 Date of Discharge: 04/18/22 Reason For Visit: CVA Diagnosis Discharge Diagnosis (1) Physical debility: Status: Acute Code(s): R53.81 - Other malaise (2) Acute left KASEY ischemic stroke: Status: Acute Code(s): I63.522 - Cerebral infarction due to unspecified occlusion or stenosis of left anterior cerebral artery (3) Left acute arterial ischemic stroke, MCA (middle cerebral artery): Status: Acute Code(s): I63.512 - Cerebral infarction due to unspecified occlusion or stenosis of left middle cerebral artery (4) S/P angioplasty with stent: Status: Acute Code(s): Z95.820 - Peripheral vascular angioplasty status with implants and grafts (5) Right hemiparesis: Status: Acute Code(s): G81.91 - Hemiplegia, unspecified affecting right dominant side (6) Dysphagia: Status: Resolved Code(s): R13.10 - Dysphagia, unspecified (7) Dysarthria: Status: Resolved Code(s): R47.1 - Dysarthria and anarthria (8) Coronary artery disease: Status: Chronic Code(s): I25.10 - Atherosclerotic heart disease of [place] coronary artery without angina pectoris Plan: Had 2 stents to the LAD at [facility] and 2 stents to the RCA at [facility]. (9) Paroxysmal A-fib: Status: Chronic Code(s): I48.0 - Paroxysmal atrial fibrillation Plan: Not on anticoagulant at [place]. she is on 2 antiplatelet agents due to multple stents. Will defer decision to start anticoagulation to cardiology. (10) Severe aortic stenosis: Status: Acute Code(s): I35.0 - Nonrheumatic aortic (valve) stenosis Plan: Plan is to have a TAVR going forward. 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 (12) Dehydration, mild: Status: Chronic Code(s): E86.0 - Dehydration (13) Tobacco use disorder, severe, in early remission, dependence: Status: Chronic Code(s): F17.201 - Nicotine dependence, unspecified, in remission (14) Chronic obstructive pulmonary disease: Status: Chronic Code(s): J44.9 - Chronic obstructive pulmonary disease, unspecified (15) Hypertension: Status: Chronic Code(s): I10 - Essential (primary) hypertension (16) Hyperlipidemia, unspecified: Status: Acute Code(s): E78.5 - Hyperlipidemia, unspecified Plan: Will need lipid panel and a liver profile in the next 2-4 weeks. (17) Right shoulder pain: Status: Chronic Code(s): M25.511 - Pain in right shoulder Plan: Due to hx of OA and surgery on the R shoulder in the past. (18) GERD (gastroesophageal reflux disease): Status: Acute Code(s): K21.9 - Gastro-esophageal reflux disease without esophagitis (19) Normochromic normocytic anemia: Status: Acute Code(s): D64.9 - Anemia, unspecified Plan: Stable. (20) Obesity (BMI 35.0-39.9 without comorbidity): Status: Acute Code(s): E66.9 - Obesity, unspecified (21) LAE (left atrial enlargement): Status: Acute Code(s): I51.7 - Cardiomegaly Plan 1. DC home 2. Follow up with PCP and cardiology for TAVR 3. Lipid panel and liver panel in 2-4 weeks. 4. Requires multiple drugs to control HTN. Consider imaging the renal arteries as OP to look for renal artery stenosis. Medications at Discharge Home Medications aspirin 81 mg chewable tablet 81 mg PO DAILY heart 03/10/22 acetaminophen 500 mg tablet 1,000 mg PO Q6H PRN PRN Pain Score 1-10 #0 tabs 04/07/22 ascorbic acid (vitamin C) 500 mg tablet 500 mg PO BREAKFAST Supplement 04/08/22 amlodipine 10 mg tablet 10 mg PO DAILY BP #30 tabs 04/14/22 atorvastatin 80 mg tablet 80 mg PO QHS Cholestrol #30 tabs 04/14/22 carvedilol 12.5 mg tablet 18.75 mg PO BIDCM #90 tabs 04/14/22 clopidogrel 75 mg tablet (Plavix) 75 mg PO DAILY blood thinner #30 tabs 04/14/22 diclofenac sodium 1 % topical gel (Voltaren Arthritis Pain) 4 g topical BID PRN PRN joint pain #200 grams 04/14/22 famotidine 20 mg tablet 20 mg PO DAILY GERD #30 tabs 04/14/22 hydralazine 25 mg tablet 25 mg PO TID BP #90 tabs 04/14/22 losartan 50 mg tablet 50 mg PO DAILY #30 tabs 04/14/22 meclizine 12.5 mg tablet 12.5 mg PO TID PRN PRN vertigo/dizziness #20 tabs 04/14/22 polyethylene glycol 3350 17 gram oral powder packet 17 g PO DAILY Constipation #30 packets 04/14/22 polysaccharide iron complex 150 mg iron capsule (Ferrex) 150 mg PO DAILY Supplement #30 caps 04/14/22 sennosides 8.6 mg-docusate sodium 50 mg tablet (Stool Softener-Stimulant Laxative) 1 tab PO BID Constipation #120 tabs 04/14/22 spironolactone 25 mg tablet 12.5 mg PO DAILY BP #15 tabs 04/14/22 Hospital Course Operations None Procedures None Summary of Care Provided Minutes Spent on Discharge: 45 Hospital Course: Maia Iqbal is a 76 YO female who presented to the ED at [facility] with c/o severe SOB. She was found to be in AF with RVR. Troponin was elevated and she was diagnosed with an NSTEMI and acute on chronic diastolic CHF. She underwent a cardiac cath and had severe stenosis in the LAD and in the RCA. There were 2 stents placed in the LAD but, no intervention to the RCA. She was intubated during the catheterization and when she was extubated she had R side weakness and slurred speech. CT brain was done approximately 6-7 hours after the neurologic deficits were noted. She was not a candidate for TPA. CTA of the head and neck showed total occlusion of the L ICA. She was transferred to [facility] for possible intervention. Intervention was attempted but, failed. Maia was then transferred to [facility] acute rehab for post stroke debility. While on rehab she developed CP associated with SOB and the pain radiated to the neck and jaw. She also had nausea. Troponin was increased. She was diagnosed with another NSTEMI and was transferred to an acute bed on the telemetry floor and seen in consult by cardiology. No changes were made to the drug regimen and she was transferred back to acute rehab. CP recurred and at that point it was unclear whether the pain was due to severe or to the stenotic lesions in the RCA. [facility] was contacted and refused transfer. Dr. Calos Jaramillo from [facility] was contacted and he agreed to take the patient in transfer. Dr. Jaramillo was able to place 2 stents in the RCA and she had no further CP. During all this she had waxing and waning neurologic deficits and Dr. Jaramillo contacted [facility] [place] to see if the patient would be a candidate for stenting of the L ICA. They agreed to take her and she did in fact receive a L ICA stent. Anticoagulation was discontinued for the procedure and she was not discharged on anticoagulation for PAF. She was transferred back to [facility] inpt acute rehab. Maia's stay on rehab was unremarkable and she did well in therapy. Smoking cessation counselling was given and the patient denied any cravings to smoke. BS's were mildly increased in the morning and a HGBA1C was checked and was consistent with mild glucose intolerance. She was placed on a carb controlled, low fat, low salt diet. She had occasional episodes of vertigo. She also has hearing loss and tinnitus and I suspect she has Meniere's disease. She was started on PRN Antivert with some improvement. HGB was stable during her stay on rehab. Maia was discharged on 04/18/22 and has appts to follow up with cardiology to discuss a TAVR and with a PCP. She will need a lipid panel and a liver panel in 2-4 weeks. I suspect she may have ANA. She is on multiple meds for BP and is a known vasculopath. She may need imaging of the renal arteries in the future. For now the BP is adequately controlled. Maia was discharged on 2 antiplatelet agents and a high intensity statin. Decision to start anticoagulation for PAF is deferred to cardiology and will likely depend on the timing of TAVR. Physical Exam Const alert, oriented x3 and no apparent distress General Appearance: cooperative HEENT HEENT Narrative: MM are dry chronically. Eyes PERRL and EOMs intact bilaterally Resp clear to auscultation bilaterally Resp Narrative: She is not tachypneic and respirations are not labored. BS's are somewhat diminished but, overall she had fair to good air exchange. 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 Also with a systolic MM at the mitral listening post. GI normal to inspection, nondistended, normoactive bowel sounds, soft to palpation and non-tender GI Narrative: No guarding with palpation. Extremity no calf tenderness General Extremity: Negative for edema Skin General Skin Exam: no breakdown Rashes: no rashes Neuro Neuro Narrative: Alert and oriented X3. No facial droop. She has some mild persistent weakness of the R arm and R leg. She has limited ROM in the R arm due to prior surgery and OA. No ataxia and no neglect. Psych affect normal Appearance: appropriate Weight / BMI Weight Weight: 176 lb 9.444 oz Body Mass Index (BMI) 33.4 ABG / Lab / Microbiology Data Result Diagrams: 04/09/22 05:31 04/13/22 05:21 Microbiology: Microbiology 04/16/22 20:00 Nasal Secretion SARS-CoV-2 Antigen (Rapid) - Final D/C Instructions Discharge Diet: Carb Control Diet and - (Low fat and low salt.) Weight Bearing Status: Full weight bearing Keep extremity elevated above heart level: Legs Call your doctor if you observe: Fever of 101 or Higher, Inability to urinate, Inability to have a bowel movement, Shortness of breath, Dizziness, Fainting spells, Swelling in the ankles, Chest pain, Increased palpitations (irregular heartbeat) and Calf discomfort Additional Instructions: Discharge home alone 04/18/2022, with outpatient PT/OT. Pending Tests Upon Discharge: none Meaningful Use Info Meaningful Use Diagnoses (Choose all that apply): Ischemic CVA CVA Therapy Assessed for PT,OT and/or ST?: Yes Ischemic Stroke Antithrombotic order at d/c?: Yes Dx of Atrial fib/flutter?: Yes Anticoagulant at discharge?: No Reason anticoagulant not ordered: Medical Contraindication (She is anemic and on 2 antiplatelet drugs. she needs a TAVR. Decision to anticoagulate deferred to cardiology.) Statins at discharge?: Yes Primary Dx Acute Ischemic CVA?: Yes IV tPA ordered during stay?: No Reason IV t-PA not ordered: Treatment not Indicated Discharge Plan Admission Admit Date/Time: 04/08/22 10:13 Primary Reason for Your Visit: post stroke debility Attending Provider: Isis Lanier Instructions Patient Instructions: Discharge Instructions for Stroke Additional Instructions / Restrictions: 1. You are a very evin lady to have survived everything that happened to you in the past month. In order to prevent strokes and heart attacks in the future you need to make sure your BP stays under 130/80, your LDL cholesterol (bad cholesterol) stays under 70 and your HGBA1C is under 7. The HGBA1C is a test for diabetes. You are borderline diabetic and if you can keep your weight down and exercise you may never develop diabetes. Do NOT eat a high carb diet.......this means avoid pasta, rice, cookies, cakes, bread, white potatoes, large amounts of fruits. Eat carbs in moderation.....do not eat a bunch at one time. 2. You now have 4 stents in the arteries in your heart.......these can clog up if you don't eat a healthy diet and get some exercise every day. NO smoking.......do not spend time around others who are smoking because second hand smoke is bad for you too. You also have a stent in the Left carotid artery. 3. You will need to have the aortic valve in your heart fixed at some point. You can discuss this with the talent acquisition program manager at your next visit. 4. When you have stents you need to stay on 2 antiplatelet drugs for a year to prevent the stents from closing up. You will be taking 1 baby aspirin a day and also Plavix 75 mg daily........never run out of these drugs. 5. You had atrial fibrillation when you first went to [facility] in [place] with the heart attack. you have not had any atrial fibrillation while you are in rehab. The atiral fibrillation (AFIB) may have been due to the lack of blood flow and oxygen to your hear. AFIB is a risk factor for strokes and generally people with AFIB are on an anticoagulant. Your talent acquisition program manager will discuss this with you. 6. If you or your family have any questions after you leave rehab please do not hesitate to call me. OFFICE: [phone] CELL: [phone] Discharge Orders/Prescriptions Prescriptions: New losartan 50 mg Tablet 50 mg PO DAILY Qty: 30 0RF carvedilol 12.5 mg Tablet 18.75 mg PO BIDCM Qty: 90 0RF Rx Instructions: 1 and 1/2 tab two times a day meclizine 12.5 mg Tablet 12.5 mg PO TID PRN PRN (Reason: vertigo/dizziness) Qty: 20 0RF Rx Instructions: Take 1 tablet up to 3 times daily for vertigo/dizziness diclofenac sodium [Voltaren Arthritis Pain] 1 % gel 4 g topical BID PRN PRN (Reason: joint pain) Qty: 200 0RF Rx Instructions: apply to painful joint 2 times a day as needed for pain. Continued aspirin 81 mg Tablet,Chewable 81 mg PO DAILY acetaminophen 500 mg Tablet 1,000 mg PO Q6H PRN PRN (Reason: Pain Score 1-10) Qty: 0 0RF ascorbic acid (vitamin C) 500 mg tablet 500 mg PO BREAKFAST atorvastatin 80 mg tablet 80 mg PO QHS Qty: 30 0RF polyethylene glycol 3350 17 gram powder in packet 17 g PO DAILY Qty: 30 0RF polysaccharide iron complex [Ferrex 150] 150 mg iron capsule 150 mg PO DAILY Qty: 30 0RF Rx Instructions: take the vitamin C(ascorbic acid) and the iron tab together with a meal. sennosides-docusate sodium [Stool Softener-Stimulant Laxat] 8.6-50 mg tablet 1 tab PO BID Qty: 120 0RF hydralazine 25 mg tablet 25 mg PO TID Qty: 90 0RF clopidogrel [Plavix] 75 mg Tablet 75 mg PO DAILY Qty: 30 0RF spironolactone 25 mg tablet 12.5 mg PO DAILY Qty: 15 0RF Rx Instructions: 1/2 tab daily famotidine 20 mg tablet 20 mg PO DAILY Qty: 30 0RF amlodipine 10 mg tablet 10 mg PO DAILY Qty: 30 0RF Discontinued magnesium hydroxide 400 mg/5 mL Suspension 30 ml PO X1 PRN (Reason: Constipation) Qty: 0 0RF Arthritis Pain Compound 2 click topical BID carvedilol 25 mg tablet 25 mg PO BIDCM nystatin [Nyamyc] 100,000 unit/gram powder 1 applic topical BID losartan 100 mg tablet 100 mg PO DAILY menthol-zinc oxide [Calmoseptine] 0.44-20.6 % ointment 1 applic topical 1000,2200 Protocol: *Topical Application Instructions APPLICATION INSTRUCTIONS: bilat buttocks Petrolatum 33% [Eucerin Eqivalent] 1 applic topical BID PRN Referrals / Follow Up: Jeimy Ventura-Cardiovascular Surgeon [Other] - 04/28/22 1:00 pm Kelly Sherwood-PCP [Other] - 05/13/22 9:30 am Disposition Disposition (needs filled in before D/C Order can be placed): Home, Self Care Charges/Coding Visit Charges Inpatient E&M: 83507 Disch Hosp >30min
[2022-04-17] MEDS: Atorvastatin Calcium 80 MG Tablet PO (20:50)
[2022-04-18 06:14] VITALS: BP 135/64; PULSE 68
[2022-04-18] MEDS: hydrALAZINE 25 MG Tablet PO (06:14)
[2022-04-18 07:32] VITALS: BP 135/64; PULSE 68; RESP 16; TEMP 36.4; O2SAT 98
[2022-04-18] MEDS: Carvedilol 12.5 MG Tablet 18.75 MG PO (08:50)
[2022-04-18] MEDS: Aspirin 81 MG TAB.CHEW PO (08:50)
[2022-04-18] MEDS: Ascorbic Acid 500 MG Tablet PO (08:51)
[2022-04-18] MEDS: Spironolactone 25 MG Tablet 12.5 MG PO (08:53)
[2022-04-18] MEDS: Losartan Potassium 50 MG Tablet PO (08:54)
[2022-04-18] MEDS: Arthritis Pain Compound 60 CLICK TUBE TOPICAL (08:54)
[2022-04-18] MEDS: Iron Polysaccharide Complex 150 MG CAPSULE PO (08:55)
[2022-04-18] MEDS: Senna/Docusate Sodium 1 Tablet PO (08:56)
[2022-04-18] MEDS: Famotidine 20 MG Tablet PO ×2 (08:56)
[2022-04-18] MEDS: amLODIPine 10 MG Tablet PO (08:57)
[2022-04-18] MEDS: Clopidogrel Bisulfate 75 MG Tablet PO (08:57)
[2022-04-18] MEDS: Nystatin Powder 15gm Bottle 1 APPLIC TOPICAL (08:58)
[2022-04-18] MEDS: Menthol/Lanolin/Calamine/Znox 113 GM Tube 1 APPLIC TOPICAL (08:58)
[2022-04-18 10:10] VITALS: PULSE 68; O2SAT 98
== END 2022-04-18 10:10 | disposition home or self-care (01) | DRG 56 ==
PROVIDERS: Admitting Provider Internal Medicine; Visit Provider Internal Medicine
DX: I69.351 Hemiplegia and hemiparesis following cerebral infarction affecting right dominant side (principal); I21.4 Non-ST elevation (NSTEMI) myocardial infarction; I13.0 Hypertensive heart and chronic kidney disease with heart failure and stage 1 through stage 4 chronic kidney disease, or unspecified chronic kidney disease; I50.32 Chronic diastolic (congestive) heart failure; I48.0 Paroxysmal atrial fibrillation; J44.9 Chronic obstructive pulmonary disease, unspecified; N18.31 Chronic kidney disease, stage 3a; E78.5 Hyperlipidemia, unspecified; D64.9 Anemia, unspecified; I69.322 Dysarthria following cerebral infarction; I35.0 Nonrheumatic aortic (valve) stenosis; I25.10 Atherosclerotic heart disease of native coronary artery without angina pectoris; K21.9 Gastro-esophageal reflux disease without esophagitis; I69.320 Aphasia following cerebral infarction; Z98.62 Peripheral vascular angioplasty status; Z95.5 Presence of coronary angioplasty implant and graft; H81.09 Meniere's disease, unspecified ear; Z87.891 Personal history of nicotine dependence; Z79.82 Long term (current) use of aspirin; Z79.899 Other long term (current) drug therapy; Z79.02 Long term (current) use of antithrombotics/antiplatelets
CPT/HCPCS: 36415; 80048; 80053; 83735; 84100; 85027; 87426; 87633; 92507; 92523; 92526; 92610; 93005; 97110; 97112; 97116; 97129; 97130; 97140; 97162; 97166; 97530; 97535; 97802; 97803